=== PATIENT | male | born 1940 | race Caucasian/White ===

== ENCOUNTER 2019-04-15 13:06 | Inpatient (IN) | payer MEDICARE, SELFPAY ==
--- NOTE | ~2019-04-15 | US_ITS ---
EXAMINATION: US right upper quadrant EXAM DATE: 04/15/2019 14:46 INDICATION: Epigastric abdominal pain. TECHNIQUE: Multiple grayscale and Doppler images of the abdomen right upper quadrant were obtained (b y a technologist who performed the scan) and subsequently reviewed. Comparison is made to prior exami nation from 01/15/2017. FINDINGS: The pancreatic head and body are normal in appearance. The pancreatic tail is not visualized. The l iver has normal echogenicity and contour. There are no focal liver lesions identified. There is no evidence of intrahepatic biliary duct dilation. Portal venous flow was seen in the hepatopedal, nor mal direction and has normal Doppler waveform. No right-sided hydronephrosis. Common bile duct measures 5-6 mm, which is normal. The gallbladder wall is normal in thickness, with expected amount of distention. No sonographic evidence of pericholecystic fluid. A few small gallst ones are present, some gallbladder sludge. Technologist reports patient didn't demonstrate sonograph ic Gomez's sign. IMPRESSION: Cholelithiasis, sonographic Gomez's sign demonstrated but no pericholecystic fluid, gall bladder wall thickening or biliary duct dilation. Reviewed, dictated and finalized at location B. MIGRATION CONSULTANT IMPRESSION: Cholelithiasis, sonographic Gomez's sign demonstrated but no peric holecystic fluid, gallbladder wall thickening or biliary duct dilation.
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
--- NOTE | ~2019-04-15 | XR_ITS ---
XR abdomen NG/feed tube insert INDICATION: Evaluate NG tube position. TECHNIQUE: Limited KUB perform for evaluating NG tube . COMPARISON: 12/03/2016 FINDINGS: NG tube tip in the stomach. Visualized bowel gas pattern is unremarkable.There is bibasila r atelectasis. There is a compression fracture of T12, likely chronic. There is scoliosis. IMPRESSION: 1: NG tube tip in the stomach. Reviewed, dictated and finalized at location A. [employer] PROCESSING
[2019-04-15 13:15] VITALS: BP 121/69; PULSE 62; RESP 24; TEMP 36.4; O2SAT 98
--- NOTE | 2019-04-15 13:20 | ECG_ITS ---
Measurements Intervals [place] Rate: 65 P: 34 NM: 198 QRS: -14 QRSD: 93 T: 29 QT: 414 QTc: 433 Interpretive Statements SINUS RHYTHM BORDERLINE T WAVE ABNORMALITY- INFERIOR LEADS BORDERLINE ECG Electronically Signed On 04-15-2019 16:24:05 [employer] by Geovani Tipton D.O.
[2019-04-15 13:31] LABS: Glucose Point of Care 107 (65-105)
--- NOTE | 2019-04-15 13:40 | ED.ABDPAIN ---
HPI - Abdominal Pain General Chief Complaint: Abdominal Pain Stated Complaint: abd pain Time Seen by Provider: 04/15/19 13:25 Source: patient and RN notes reviewed Mode of arrival: EMS Limitations: no limitations History of Present Illness HPI narrative: Pt is a 78 y/o male who presents to the ED via EMS with c/o epigastric pain starting roughly 1.5 hours ago. He notes that he has a Hx of a feeding tube secondary to a traumatic injury. Pt states that he was eating a banana this afternoon when he developed pain in his upper ABD. He notes that his pain has alleviated significantly since it first began, and currently rates his pain at 2-3/10. Pt reports diaphoresis accompanying his pain, but denies any nausea, vomiting, SOB, CP, or back pain. He notes that he was evaluated in the [place] ED on 04/07/19 for weakness, and states that he was diagnosed with possible pneumonia. Pt notes that he has since followed up with his PCP, Dr. Membreno, and states that he was started on 2 L of home O2 yesterday as needed. MD elicited complaint: abdominal pain Onset (ago): hour(s) (1.5) Location: epigastric Pain scale (0-10): 2 Associated symptoms: other (diaphoresis) Related Data Home Medications Medication Instructions Recorded Confirmed albuterol sulfate 90 mcg/actuation 1 inhalation INHALATION Q4H 01/25/19 aerosol inhaler cetirizine 10 mg capsule PO 01/25/19 cholecalciferol (vitamin D3) 25 1,000 unit PO DAILY 01/25/19 mcg (1,000 unit) capsule montelukast 10 mg tablet 10 mg PO DAILY 01/25/19 Allergies Allergy/AdvReac Type Severity Reaction Status Date / Time fentanyl AdvReac Unknown Loss of Verified 04/11/19 14:37 Consciousness hydrocodone AdvReac Unknown Loss of Verified 04/11/19 14:37 Consciousness oxycodone AdvReac Unknown Loss of Verified 04/11/19 14:37 Consciousness SILKSUTURES Allergy Severe REDNESS Uncoded 04/11/19 14:37 Review of Systems Review of Systems: All systems reviewed & are unremarkable except as noted in HPI and below Cardiovascular: Cardiovascular: Denies chest pain and Reports diaphoresis Respiratory: Respiratory: Denies dyspnea Gastrointestinal: Gastrointestinal: Reports abdominal pain (epigastric pain), Denies nausea and Denies vomiting Musculoskeletal: Musculoskeletal: Denies back pain [facility] Past Medical History Medical History Acute diastolic heart failure AK (actinic keratosis) 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 Cataracts, bilateral CHF (congestive heart failure) Cholecystitis Chronic bilateral low back pain without sciatica Chronic diastolic (congestive) heart failure Chronic kidney disease, stage 3 (moderate) Chronic leukemia of unspecified cell type not having achieved remission CLL (chronic lymphocytic leukemia) Closed fracture of one rib of right side Closed fracture of trochanter of right femur Combined arterial insufficiency and corporo-venous occlusive erectile dysfunction CVA (cerebral vascular accident) Diastolic dysfunction Dietary counseling and surveillance (06/02/16) Dizziness Dysfunction of right rotator cuff Encounter for other specified surgical aftercare Esophageal dysphagia Essential (primary) hypertension External hemorrhoids Gastroesophageal reflux disease Granuloma of subcutaneous tissue H/O: HTN (hypertension) History of angina History of GI bleed History of inguinal hernia ADOLFO. 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
[2019-04-15 14:16] LABS: Basophils Absolute Auto 0.1 K/mm3 (0.0-0.1); Basophils Percent Auto 0.1 % (0.2-1.2); Eosinophils Absolute Auto 0.1 K/mm3 (0-0.3); Eosinophils Percent Auto 0.1 % (0-4.4); Hematocrit 35.5 % (42.0-52.0); Hemoglobin 10.9 g/dL (14.0-18.0); Immature Granulocyte Absolute 0.13 K/mm3 (0.00-0.031); Immature Granulocyte Percent A 0.3 % (0-0.5); Lymphocytes Absolute Auto 43.19 K/mm3 (0.9-3.2); Lymphocytes Percent Auto 87.7 % (18.3-44.2); Mean Corpuscular HGB Conc 30.7 g/dl (32-36); Mean Corpuscular Hemoglobin 29.2 pg (26-34); Mean Corpuscular Volume 95.2 fl (80-100); Mean Platelet Volume 8.7 fl (7.4-10.4); Monocytes Absolute Auto 0.4 K/mm3 (0.1-0.6); Monocytes Percent Auto 0.8 % (2.6-8.5); Neutrophils Absolute Auto 5.4 K/mm3 (1.3-6.7); Platelet Count Result 248 k/mm3 (150-375); Red Blood Count 3.73 M/mm3 (4.6-6.20); Red Cell Distribution Width 14.6 % (11.5-14.5); White Blood Count 49.2 K/mm3 (4.5-10.0)
[2019-04-15 14:21] LABS: Add Urine Microscopic? YES; Appearance Urine Clear (Clear); Bacteria Urine Trace /hpf; Bilirubin Urine Negative (Negative); Blood Urine Negative (Negative); Color Urine Yellow (Yellow); Glucose Urine UA 1+ mg/dL (Negative); Ketones Urine Trace mg/dL (Negative); Leukocyte Esterase Ur Negative LEU/UL (Negative); Mucus Urine Rare /lpf; Nitrate Urine Negative (Negative); Protein Urine 1+ mg/dL (Negative); RBC Urine 0-2 /hpf (0-2); Specific Grav Ur 1.027 (1.001-1.035); Squamous Epithelial Cell Urine Rare /hpf (Few); Urobilinogen Urine Negative mg/dL (<2.0); WBC Urine 0-3 /hpf
[2019-04-15 14:31] LABS: Platelet Estimate Adequate (Adequate)
[2019-04-15 14:32] LABS: Alanine Aminotransferase 88 U/L (4-50); Albumin Level 3.3 g/dL (3.5-5.1); Alkaline Phosphatase 180 U/L (38-126); Aspartate Amino Transferase 65 U/L (17-59); Atypical Lymphocytes Present; Bilirubin,Total 0.6 mg/dL (0.2-1.3); Blood Urea Nitrogen 44 mg/dL (9-20); Calcium 8.9 mg/dL (8.4-10.2); Carbon Dioxide 29 mmol/L (22-30); Chloride 94 mmol/L (98-107); Estimated CRCL calculation 42 ml/min; Estimated Glomerular Filt Rate > 60; Glucose 178 mg/dL (75-110); Potassium 4.7 mmol/L (3.4-5.0); Sodium 132 mmol/L (137-145)
[2019-04-15 14:39] LABS: Troponin I < 0.012 ng/mL (0.000-0.034)
[2019-04-15 15:28] LABS: Lipase 7726 U/L (23-300)
[2019-04-15 16:37] VITALS: BP 123/78; PULSE 76; RESP 16; O2SAT 99
[2019-04-15 18:05] VITALS: BP 121/82; PULSE 82; RESP 20; O2SAT 100
--- NOTE | 2019-04-15 18:24 | ADMGEN ---
This patient, Jordon Guillermo, was admitted to Medical Room 343-01. Patient/family oriented to hospital policies and general routines including ID bracelet, bed and alarms, visiting hours, pain management, procedures, bathroom and other care routines, personal items, smoking policy, room service/diet, and visiting hours. Valuables list has been completed. Information on how to activate the Rapid Response Team has been discussed. Patient/Family are encouraged to report perceived risks to care and to ask questions if they do not understand what they are told or what they should do.
[2019-04-15] MEDS: LACTATED RINGERS 1,000 ML 125 ML IV CONT (18:26)
[2019-04-15 18:29] VITALS: BMI 25.3
[2019-04-15 18:49] VITALS: BP 114/67; PULSE 76; RESP 20; TEMP 37; O2SAT 96
[2019-04-15 18:54] VITALS: BMI 24.4
[2019-04-15] MEDS: KETOROLAC 30 MG/ML VIAL (*BKC) IV PUSH (20:49)
[2019-04-15 21:19] VITALS: BP 130/65; PULSE 78; RESP 16; TEMP 36.6; O2SAT 98
[2019-04-16] VITALS (10 sets, daily range): BP systolic 91–138; BP diastolic 54–88; PULSE 78–96; RESP 18–22; TEMP 36.6–37.1; O2SAT 96–100
[2019-04-16] MEDS: LACTATED RINGERS 1,000 ML 125 ML IV CONT ×2 (02:36→11:51)
[2019-04-16] MEDS: KETOROLAC 30 MG/ML VIAL (*BKC) IV PUSH (04:15)
[2019-04-16 06:06] LABS: Basophils Absolute Auto 0.1 K/mm3 (0.0-0.1); Basophils Percent Auto 0.2 % (0.2-1.2); Eosinophils Absolute Auto 0.1 K/mm3 (0-0.3); Eosinophils Percent Auto 0.2 % (0-4.4); Hematocrit 25.3 % (42.0-52.0); Hemoglobin 7.8 g/dL (14.0-18.0); Immature Granulocyte Absolute 0.06 K/mm3 (0.00-0.031); Immature Granulocyte Percent A 0.2 % (0-0.5); Lymphocytes Percent Auto 89.4 % (18.3-44.2); Mean Corpuscular HGB Conc 30.8 g/dl (32-36); Mean Corpuscular Hemoglobin 29.3 pg (26-34); Mean Corpuscular Volume 95.1 fl (80-100); Mean Platelet Volume 8.5 fl (7.4-10.4); Monocytes Absolute Auto 0.4 K/mm3 (0.1-0.6); Monocytes Percent Auto 1.2 % (2.6-8.5); Neutrophils Absolute Auto 2.8 K/mm3 (1.3-6.7); Neutrophils Percent Auto 8.8 % (45.5-73.1); Platelet Count Result 178 k/mm3 (150-375); Red Blood Count 2.66 M/mm3 (4.6-6.20); Red Cell Distribution Width 14.6 % (11.5-14.5)
[2019-04-16 06:23] LABS: Alanine Aminotransferase 59 U/L (4-50); Albumin Level 2.6 g/dL (3.5-5.1); Alkaline Phosphatase 116 U/L (38-126); Aspartate Amino Transferase 32 U/L (17-59); Bilirubin,Total 0.4 mg/dL (0.2-1.3); Blood Urea Nitrogen 49 mg/dL (9-20); Calcium 8.3 mg/dL (8.4-10.2); Carbon Dioxide 27 mmol/L (22-30); Chloride 100 mmol/L (98-107); Estimated CRCL calculation 41 ml/min; Estimated Glomerular Filt Rate > 60; Glucose 97 mg/dL (75-110); Lipase 411 U/L (23-300); Potassium 4.8 mmol/L (3.4-5.0); Sodium 133 mmol/L (137-145)
--- NOTE | 2019-04-16 09:14 | PM.IMHP ---
H&P: HPI History of Present Illness Chief complaint: pancreatitis/cholelithiasis Narrative: Date and Time of Service of History & Physical: April 16, 2019 at 8:30 a.m.. Date and Time of Admission Order: April 15, 2019 at 5:18 p.m. Chief Complaint: Epigastric pain. History of Present Illness: Jordon Guillermo is a 78 year old male with multiple medical problems previous history of bleeding ulcer 40 years ago, chronic back and shoulder pain, chronic diastolic heart failure, chronic kidney disease stage 3, CLL and hypertension who presented to the emergency room yesterday with acute onset of epigastric pain starting approximately 11:30 a.m.. Patient reports he had eaten a banana just prior to the pain. Pain lasted 1-1/2 hours. He does report noticing a dark stool yesterday morning. He did of note have dark stool with blood in noted overnight on the medical floor. Patient was having problems with decreased appetite and oral intake along with generalized weakness and shortness of breath with in the past 2 weeks. After 1 week of symptoms, he was seen in the emergency room on 04/07/2019. At that time was thought to possibly have pneumonia but was not started on treatment. He did follow-up with his primary physician, Dr. Membreno, on 04/11/2019 at which time he was started on antibiotics as well as oxygen for pneumonia and hypoxia. Patient reports he was able to wean off the oxygen 2 days ago. No further shortness of breath. Occasional cough. No fever but he did have chills 1 week ago. He only takes acetaminophen with known chronic pain issues from an injury many years ago. He does currently have slight headache but no dizziness. No chest pain. No nausea or vomiting. No urinary symptoms. In the emergency room, evaluation was concerning for pancreatitis with cholecystitis. General surgery was consulted from the emergency room with patient admitted for further evaluation and treatment. Review of Systems Review of Systems: All systems reviewed & are unremarkable except as noted in HPI and below Constitutional: Constitutional: Denies chills and Denies fever(s) ENT: Denies epistaxis, Denies nasal congestion, Denies nasal discharge and Denies sore throat Cardiovascular: Cardiovascular: Denies chest pain, Denies leg edema, Denies lightheadedness and Denies palpitations Respiratory: Respiratory: Denies cough, Denies dyspnea and Denies dyspnea on exertion Gastrointestinal: Gastrointestinal: Reports abdominal pain (epigastric), Reports hematochezia, Denies constipation, Denies diarrhea, Denies nausea, Denies vomiting and Denies hematemesis Genitourinary: Genitourinary: Denies hematuria, Denies dysuria and Denies urinary frequency Musculoskeletal: Musculoskeletal: Reports back pain (chronic back) and Reports arthralgias (chronic shoulder) Integumentary/Breasts: Skin/Breast: Reports system reviewed and no additional complaints, except as docu Neurologic: Denies Abnormal speech present, Denies abnormal gait, Reports headache(s) and Denies numbness Psychiatric: Psychiatric: Denies anxiety, Denies confusion and Denies depression Endocrine: Endocrine: Reports no additional endocrine complaints Hematologic/Lymphatic: Hematologic/Lymphatic: Reports other (known CLL) Allergic/Immunologic: Allergic/Immunologic: Reports no additional allergic/immunologic complaints PMFSH Past Medical History Medical History AK (actinic keratosis) 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 Cataracts, bilateral Cholecystitis Chronic bilateral low back pain without sciatica Chronic diastolic (congestive) heart failure Chronic kidney disease, stage 3 (moderate) Chronic leukemia of unspecified cell type not having achieved remission CLL (chronic lymphocytic leukemia) Closed fracture of one rib of right side Closed fracture of trochanter of right femur Combined arterial insufficienc
--- NOTE | 2019-04-16 09:21 | WPDGICN ---
Assessment and Plan Additional Plan This is a 78-year-old white male patient I am asked to see because of blood in stool. Patient is followed by Dr. Amadeo Membreno In the office setting. Patient reports mild midepigastric discomfort over the last several days. For this reason he presented to the emergency room yesterday. Laboratory testing revealed elevation of LFTs. Elevated lipase was noted. ultrasound confirmed gallstones. He was admitted for treatment of pancreatitis secondary to gallstones. This morning he was noted to pass black melenic stools. Decline in his hemoglobin was identified. Patient continues to notice mild midepigastric discomfort. Past medical history is significant for CLL. He has a history of traumatic injury requiring a PEG tube in the past now removed. He has a distant history of bleeding peptic ulcer. He has a history of esophagitis and distal esophageal stricture ring requiring dilatation in 2018. Family history is noncontributory. Current medications include albuterol. Losartan. Omeprazole 20 mg p.o. daily. He has Allergies to fentanyl and hydrocortisone. Physical exam reveals Vital Signs to be stable blood pressure normal. HEENT exam unremarkable he is anicteric. Lungs are clear to auscultation and percussion. Heart is without murmur or extra sounds. Abdomen bowel sounds are present soft with mild midepigastric tenderness. No masses are listed. Stool was confirmed to be Hemoccult positive. Laboratory testing reveals WBC 31. Hemoglobin 7.8 hematocrit 25.3. Yesterday hemoglobin was 10.9. Total bilirubin 0.4. AST 32. ALT 59. Alk phos 116. Yesterday lipase 7700. Today is 411. impression 1. GI bleeding. Appears to be upper GI blood loss manifested by melena. Decline in hemoglobin noted as well. Current vital signs appear stable. No active bleeding felt per at the present time. Plan is to increase dose of proton pump inhibitor. An EGD will be planned in the morning. patient has a distant history of peptic ulcer. He also has a history of esophagitis and esophageal stricture ring. 2. Pancreatitis. Clinically improving. Appears to be related to gallstones. 3. Gallstones. Appear to have been etiology for pancreatitis. Surgery has been consulted for possible cholecystectomy. 4. CLL. This is chronic and appear stable. WBC remains elevated. Plan is to increase dose of proton pump inhibitor. Continue to monitor hemoglobin. Plan for EGD to assess upper GI bleeding source. 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 dysfunction CVA (cerebral vascular accident) Dizziness Dysfunction of right rotator cuff Esophageal dysphagia Essential (primary) hypertension External hemorrhoids Gastroesophageal reflux disease Granuloma of subcutaneous tissue History of angina History of GI bleed History of SCC (squamous cell carcinoma) of skin Hx of migraines 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e) Incisional hernia, without obstruction or gangrene Injury of back due to fall Injury of chest wall Internal hemorrhoids with other complication Irregular heart beat Irritation of both e
[2019-04-16] MEDS: PANTOPRAZOLE SODIUM IV 40 MG VIAL IV PUSH ×2 (09:57→23:13)
[2019-04-16 11:39] LABS: Hemoglobin 7.3 g/dL (14.0-18.0)
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
[2019-04-16] MEDS: ALBUTEROL SULFATE (*SP) AEROSOL 1 PUFF INHALATION (12:54)
[2019-04-16 17:18] LABS: Hematocrit 21.9 % (42.0-52.0)
[2019-04-16 17:35] LABS: Hemoglobin 6.7 g/dL (14.0-18.0)
[2019-04-16] MEDS: TUBING, BLOOD PLUM PUMP TUBING 1 EACH XX (23:14)
[2019-04-16] MEDS: SODIUM CHLORIDE 0.9% IV 250 ML 30 ML IV CONT (23:14)
[2019-04-17] VITALS (24 sets, daily range): BP systolic 72–113; BP diastolic 50–82; PULSE 69–100; RESP 14–32; TEMP 36.3–37.2; O2SAT 95–100
[2019-04-17] MEDS: LACTATED RINGERS 1,000 ML 125 ML IV CONT ×3 (02:32→21:36)
[2019-04-17 03:00] LABS: Hematocrit 23.6 % (42.0-52.0); Hemoglobin 7.2 g/dL (14.0-18.0)
--- NOTE | 2019-04-17 03:07 | PC.NURSE ---
Addendum entered by Misha Lopez CNA 04/17/19 03:11: instead of bloody stools are maroon in color and thick consistency. Original Note: x2 large dark bloody stools. x2 small dark bloody stool.
--- NOTE | 2019-04-17 03:34 | PC.NURSE ---
medium, thick, dark maroon
[2019-04-17 06:02] LABS: Hematocrit 21.5 % (42.0-52.0)
[2019-04-17 06:07] LABS: Hemoglobin 6.7 g/dL (14.0-18.0)
[2019-04-17 06:09] LABS: Alanine Aminotransferase 32 U/L (4-50); Alkaline Phosphatase 66 U/L (38-126); Aspartate Amino Transferase 31 U/L (17-59); Bilirubin,Total 0.4 mg/dL (0.2-1.3); Blood Urea Nitrogen 67 mg/dL (9-20); Calcium 7.6 mg/dL (8.4-10.2); Carbon Dioxide 23 mmol/L (22-30); Chloride 107 mmol/L (98-107); Estimated CRCL calculation 41 ml/min; Estimated Glomerular Filt Rate > 60; Glucose 111 mg/dL (75-110); Lipase 41 U/L (23-300); Magnesium 1.9 mg/dL (1.6-2.3); Potassium 4.9 mmol/L (3.4-5.0); Sodium 136 mmol/L (137-145)
--- NOTE | 2019-04-17 06:38 | PC.NURSE ---
BM: large, thick, dark maroon
[2019-04-17 06:44] LABS: Hematocrit 21.8 % (42.0-52.0); Mean Corpuscular HGB Conc 30.7 g/dl (32-36); Mean Corpuscular Hemoglobin 29.3 pg (26-34); Mean Corpuscular Volume 95.2 fl (80-100); Mean Platelet Volume 9.3 fl (7.4-10.4); Platelet Count Result 211 k/mm3 (150-375); Red Blood Count 2.29 M/mm3 (4.6-6.20)
[2019-04-17 06:59] LABS: Hemoglobin 6.7 g/dL (14.0-18.0)
--- NOTE | 2019-04-17 07:23 | WPDANESEPP ---
Anes - Eval Pre Procedure Procedure: EGD Date/Time: 04/17/19 07:23 Surgeon: Wendie Sandoval M.D. Pre Op Diagnosis: pancreatitis/cholelithiasis Patient Data Age: 78 Gender: M Height: 1.63 m Weight: 64.5 kg Last Vital Signs Temp 36.9 C 04/17/19 04:37 Pulse 90 04/17/19 04:37 Resp 16 04/17/19 04:37 BP 111/64 04/17/19 04:37 Pulse Ox 100 04/17/19 04:37 Allergies Allergy/AdvReac Type Severity Reaction Status Date / Time fentanyl AdvReac Unknown Loss of Verified 04/15/19 18:21 Consciousness hydrocodone AdvReac Unknown Loss of Verified 04/15/19 18:21 Consciousness oxycodone AdvReac Unknown Loss of Verified 04/15/19 18:21 Consciousness SILKSUTURES Allergy Severe REDNESS Uncoded 04/11/19 14:37 Home Medications Medication Instructions Recorded Confirmed Type albuterol sulfate 90 mcg/actuation 1 inhalation INHALATION Q4H 01/25/19 04/15/19 History aerosol inhaler omeprazole 20 mg tablet,delayed 20 mg PO DAILY #30 tablet 02/07/19 04/15/19 Rx release nebivolol 5 mg tablet 2.5 mg PO DAILY #30 tablet 04/11/19 04/15/19 Rx losartan 50 mg PO DAILY 04/15/19 04/15/19 History Laboratory Tests 04/16/19 04/16/19 04/16/19 11:05 17:09 17:52 WBC RBC Hgb 7.3 g/dL L g/dL 6.7 g/dL L* g/dL (14.0-18.0) (14.0-18.0) Hct 24.0 % L % 21.9 % L % (42.0-52.0) (42.0-52.0) MCV MCH MCHC RDW Plt Count MPV Sodium Potassium Chloride Carbon Dioxide BUN Creatinine Estim Creat Clear Calc Estimated GFR Glucose Calcium Magnesium Total Bilirubin AST ALT Alkaline Phosphatase Total Protein Albumin Lipase Blood Type O Positive Antibody Screen Negative Crossmatch See Detail 04/17/19 04/17/19 04/17/19 02:48 05:29 05:29 WBC 50.0 K/mm3 H K/mm3 (4.5-10.0) RBC 2.29 M/mm3 L M/mm3 (4.6-6.20) Hgb 7.2 g/dL L g/dL 6.7 g/dL L* g/dL (14.0-18.0) (14.0-18.0) Hct 23.6 % L % 21.8 % L % (42.0-52.0) (42.0-52.0) MCV 95.2 fl fl (80-100) MCH 29.3 pg pg (26-34) MCHC 30.7 g/dl L g/dl (32-36) RDW 16.0 % H % (11.5-14.5) Plt Count 211 k/mm3 k/mm3 (150-375) MPV 9.3 fl fl (7.4-10.4) Sodium 136 mmol/L L mmol/L (137-145) Potassium 4.9 mmol/L mmol/L (3.4-5.0) Chloride 107 mmol/L mmol/L (98-107) Carbon Dioxide 23 mmol/L mmol/L (22-30) BUN 67 mg/dL H D mg/dL (9-20) Creatinine 1.10 mg/dL mg/dL (0.7-1.3) Estim Creat Clear Calc 41 ml/min ml/min Estimated GFR > 60 (59 - ) Glucose 111 mg/dL H mg/dL (75-110) Calcium 7.6 mg/dL L mg/dL (8.4-10.2) Magnesium 1.9 mg/dL mg/dL (1.6-2.3) Total Bilirubin 0.4 mg/dL mg/dL (0.2-1.3) AST 31 U/L U/L (17-59) ALT 32 U/L U/L (4-50) Alkaline Phosphatase 66 U/L U/L (38-126) Total Protein 4.0 g/dL L g/dL (6.3-8.2) Albumin 2.0 g/dL L g/dL (3.5-5.1) Lipase 41 U/L U/L (23-300) Blood Type Antibody Screen Crossmatch 04/17/19 05:29 WBC RBC Hgb 6.7 g/dL L* g/dL (14.0-18.0) Hct 21.5 % L % (42.0-52.0) MCV MCH MCHC RDW Plt Count MPV Sodium Potassium Chloride Carbon Dioxide BUN Creatinine Estim Creat Clear Calc Estimated GFR Glucose Calcium Magnesium Total Bilirubin AST ALT Alkaline Phosphatase Total Protein Albumin
[2019-04-17] MEDS: PANTOPRAZOLE SODIUM IV 40 MG VIAL IV PUSH ×2 (08:28→20:51)
[2019-04-17] MEDS: SODIUM CHLORIDE 0.9% IV 250 ML 30 ML IV CONT ×2 (08:36→22:43)
--- NOTE | 2019-04-17 09:53 | PM.IMPN ---
Progress Note: A&P Assessment and Plan (1) Anemia: Onset Date: Unknown Qualifiers: Anemia type: other cause Other causes of anemia: acute posthemorrhagic Qualified Code(s): D62 - Acute posthemorrhagic anemia Code(s): D64.9 - Anemia, unspecified Status: Acute Assessment and Plan: Appears to be from GI bleed at this time. Hemoglobin decreased to 6.7 last night with 2 units PRBC transfused. Did slightly increase to 7.2 but still at 6.7 again this morning. Receiving 1 more unit of PRBC. BP decreased 88/[address] Sandoval was consulted and did see the patient yesterday with plan for EGD today. Dr. Sandoval aware of current situation. IV fluids being given in addition to transfusion but will need to be cautious with known history of CHF. Remains on IV Protonix. Remains NPO. Now has NG tube placed per direction of Dr. Sandoval this morning. Discussed with Dr. Sandoval as well as with editorial assistant. Will transfer to ICU for closer monitoring. Total time spent in critical care is 35 minutes. (2) GI bleed: Onset Date: ~04/16/19 Qualifiers: GI bleed type/associated pathology: melena Qualified Code(s): K92.1 - Melena Code(s): K92.2 - Gastrointestinal hemorrhage, unspecified Status: Acute Assessment and Plan: Decrease in hemoglobin as noted above. Previous history of ulcer. Has not been on any anti-inflammatories recently. Continue IV Protonix q.12 hours. Continue transfusion. Continue to monitor H&H. Plan for EGD. Adjust treatment as needed. (3) Hypotension: Qualifiers: Hypotension type: hypotension due to hypovolemia Qualified Code(s): I95.89 - Other hypotension; E86.1 - Hypovolemia Code(s): I95.9 - Hypotension, unspecified Status: Acute Assessment and Plan: Result blood volume loss. Receiving PRBC. Also to receive IV fluids. Continue to monitor. (4) Essential (primary) hypertension: Code(s): I10 - Essential (primary) hypertension Status: Acute Assessment and Plan: Blood pressure reviewed on 04/17/2019 and now lower as noted above. Continue to hold home losartan and Bystolic. Continue to monitor. (5) Chronic diastolic (congestive) heart failure: Code(s): I50.32 - Chronic diastolic (congestive) heart failure Status: Acute Assessment and Plan: No present exacerbation. Home losartan and Bystolic on hold. Will need to monitor for volume overload with transfusions and IV fluids. Echocardiogram from November 2018 with EF 60-65% and diastolic dysfunction grade 1. (6) Acute pancreatitis: Onset Date: ~03/2019 Qualifiers: Acute pancreatitis complication: no infection or necrosis Pancreatitis type: biliary Qualified Code(s): K85.10 - Biliary acute pancreatitis without necrosis or infection Code(s): K85.90 - Acute pancreatitis without necrosis or infection, unspecified Status: Acute Assessment and Plan: Initial workup in the emergency room consistent with pancreatitis with elevated lipase. Lipase has already improved to 411 today. LFTs already normalizing. CT scan and RUQ ultrasound with concern for gallbladder issues. General surgery consulted from the emergency room and appreciate input. Lipase is normal today. Suspect abdominal issues more likely from GI bleed. Continue to monitor. Treatment as noted above. (7) Cholelithiasis: Onset Date: Unknown Qualifiers: Biliary obstruction: without biliary obstruction Cholelithiasis location: other site Qualified Code(s): K80.80 - Other cholelithiasis without obstruction Code(s): K80.20 - Calculus of gallbladder without cholecystitis without obstruction Status: Acute Assessment and Plan: As seen on CT and RUQ ultrasound. Appreciate input from General surgery. Do not anticipate surgery at the present time. Continue treatment of GI issues as noted above. (8) CLL (c
--- NOTE | 2019-04-17 11:44 | WPDANESEFPP ---
Anes - Eval Final PreProcedure Day of Procedure 04/17/19 11:44 Patient weight: normal Heart: tachycardia Lungs: clear to auscultation Airway: Mallampati scale class II Neurological: other (alert) Last oral intake: >/= 8 hours ASA classification: IV Emergent: yes Anesthetic plan: proceed Anesthesia type and monitoring: general GIVS and standard monitoring Other findings: exam per [facility] will do in ICU etomidate/propofol Informed Consent: The patient's anesthetic plan and its attendant risks and benefits were discussed with the patient/family/POA. Questions were solicited and answers provided to the satisfaction of the patient/family/POA.
--- NOTE | 2019-04-17 11:51 | WPDCNINT ---
Assessment and Plan Assessment and plan (1) Anemia: Onset Date: Unknown Qualifiers: Anemia type: other cause Other causes of anemia: acute posthemorrhagic Qualified Code(s): D62 - Acute posthemorrhagic anemia Code(s): D64.9 - Anemia, unspecified Status: Acute Assessment and Plan: acute anemia most likely related to GI bleed. Has a history of ulcer, - appreciate GI evaluation and recommendation - patient to get endoscopy today on 04/17/2019 - continue PPI q.12 hours - transfused 3 units of packed RBCs, will monitor H&H post transfusion (2) GI bleed: Onset Date: ~04/16/19 Qualifiers: GI bleed type/associated pathology: melena Qualified Code(s): K92.1 - Melena Code(s): K92.2 - Gastrointestinal hemorrhage, unspecified Status: Acute Assessment and Plan: GI bleed patient initially had melena but overnight started to have some red blood per rectum. - EGD to be done today per GI (3) Hypotension: Qualifiers: Hypotension type: hypotension due to hypovolemia Qualified Code(s): I95.89 - Other hypotension; E86.1 - Hypovolemia Code(s): I95.9 - Hypotension, unspecified Status: Acute Assessment and Plan: patient hypotensive likely related to acute gastroenteritis hemorrhage. Patient transfuse 3 units of packed RBCs, so given 250 mL IV fluid bolus per GI improvement in blood pressures. - Patient transfer the ICU for close monitoring (4) Acute pancreatitis: Onset Date: ~03/2019 Qualifiers: Acute pancreatitis complication: no infection or necrosis Pancreatitis type: biliary Qualified Code(s): K85.10 - Biliary acute pancreatitis without necrosis or infection Code(s): K85.90 - Acute pancreatitis without necrosis or infection, unspecified Status: Acute Assessment and Plan: patient had significantly elevated lipase levels on admission, on 04/17/2019 a lipase levels have normalized - LFTs also normalizing, CT scan and right upper quadrant ultrasound show cholelithiasis without obstruction (5) CLL (chronic lymphocytic leukemia): Onset Date: Unknown Code(s): C91.10 - Chronic lymphocytic leukemia of B-cell type not having achieved remission Status: Acute Assessment and Plan: patient with known CLL of B-cell type - WBC elevated to 50,000, likely Leukomoid reaction secondary to GI bleed, continue fall (6) Essential (primary) hypertension: Code(s): I10 - Essential (primary) hypertension Status: Acute Assessment and Plan: will hold all anti hypertensives at this time (7) Cholelithiasis: Onset Date: Unknown Qualifiers: Biliary obstruction: without biliary obstruction Cholelithiasis location: other site Qualified Code(s): K80.80 - Other cholelithiasis without obstruction Code(s): K80.20 - Calculus of gallbladder without cholecystitis without obstruction Status: Acute Assessment and Plan: - right upper quadrant ultrasound showed cholelithiasis with no pericholecystic fluid, gallbladder wall thickening or biliary duct dilatation - CT scan of the abdominal pelvis showed stable moderate splenomegaly, cholelithiasis, gallbladder wall thickening may be secondary to chronic liver disease, interstitial edema or chronic cholecystitis - surgery following the patient, no acute intervention at this time (8) DVT prophylaxis: Code(s): Z29.9 - Encounter for prophylactic measures, unspecified Status: Acute Assessment and Plan: SCDs Additional Plan discussed with patient and his son and updated them with patient's condition and plan of care. They aware of the EGD to be done today, I also discussed with the patient and son that if his blood pressures dropped too low, he will require a central line to which both of them agreeable. Code status: Full code Critical care time spent: 42 minutes Du
[2019-04-17] MEDS: SODIUM CHLORIDE 0.9% IV 500 ML 150 ML (12:47)
--- NOTE | 2019-04-17 13:51 | PM.OP ---
Procedure Note - Brief Procedure Note - Brief Date of procedure: 04/17/19 Pre-op diagnosis: pancreatitis/cholelithiasis Surgeon: Jonnie Sandoval MD EGD with cautery is performed on 04/17/2019. Informed consent is obtained from the patient. The risks benefits alternatives indications are discussed thoroughly with the patient prior to starting the procedure. The risks include but are not limited to adverse reaction medications including allergies to risk of bleeding and possible need for transfusion the risk of perforation and possible need for surgery and the risk for missed pathology patient voiced clear understanding agreed to proceed. Procedure is EGD with cautery and epinephrine injection. Preop diagnosis upper GI bleeding. Postop diagnosis same Description Procedure patient is sedated with anesthesia assistance. Instrument is the [employer] video endoscope. And the side-viewing duodenal scope. Fujinon endoscope is passed to the esophagus which appears normal squamocolumnar junction. Located at 40 cm from the incisors. Stomach his hands entirety including U-turn is normal Duodenum reveals a large amount of blood. Bright red blood is noted. After lavaged this appears to emanate from the superior portion of the duodenal sweep. In the 2nd portion of the duodenum 3cc of epinephrine injected intermittently. This area subsequently cauterized empirically. Cessation of bleeding ultimately is accomplished. Follow-up endoscopy with the side-viewing duodenal scope was subsequently performed. Area of small cautery lesion is identified just beyond the fold in the duodenal sweep. No additional bleeding noted at this time. Impression 1. Duodenal ulcer. Visible vessel noted in this area. 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 Plan is for continued close monitoring of his blood pressure and blood count. Plan to transfuse to a stable hemoglobin. High-dose proton pump inhibitor with Carafate supplementation is advised. This is discussed with Dr. Keys on surgery. Also discussed with Dr. french mildly manager of loss prevention operations.
--- NOTE | 2019-04-17 14:38 | PM.PNGS ---
Progress Note: A&P Assessment and Plan (1) GI bleed: Onset Date: ~04/16/19 Qualifiers: GI bleed type/associated pathology: melena Qualified Code(s): K92.1 - Melena Code(s): K92.2 - Gastrointestinal hemorrhage, unspecified Status: Acute Assessment and Plan: Appears to be from a site at the junction of the 1st and 2nd portion of the duodenum. See GI note Agree with high-dose Protonix plus Carafate has medical treatment. Have discussed with Dr. Sanodval and Dr. Andujar and will plan to transfuse patient to try to keep hemoglobin around 9.0 in view of his general medical condition debilitation and heart issues. We will be on standby should patient rebleed. However, since this appears to be a superficial area of bleeding probably repeat endoscopy with attempts at further therapeutic or mechanical techniques to stop the bleeding would be the 1st priority. Only if this fails would surgical intervention be needed. (2) Chronic diastolic (congestive) heart failure: Code(s): I50.32 - Chronic diastolic (congestive) heart failure Status: Acute (3) Anemia: Onset Date: Unknown Qualifiers: Anemia type: other cause Other causes of anemia: acute posthemorrhagic Qualified Code(s): D62 - Acute posthemorrhagic anemia Code(s): D64.9 - Anemia, unspecified Status: Acute Assessment and Plan: Transfusions to hemoglobin around 9.0 and serial H&H monitoring. (4) Cholelithiasis: Onset Date: Unknown Qualifiers: Biliary obstruction: without biliary obstruction Cholelithiasis location: other site Qualified Code(s): K80.80 - Other cholelithiasis without obstruction Code(s): K80.20 - Calculus of gallbladder without cholecystitis without obstruction Status: Acute Assessment and Plan: Since the patient had pancreatitis that resolved when he presented probably after he recovers from all of the current problems and is healthy as can be we may need to consider laparoscopic cholecystectomy to try to avoid further episodes of pancreatitis. Ultrasound shows that the patient has small stones in his gallbladder. (5) CLL (chronic lymphocytic leukemia): Onset Date: Unknown Code(s): C91.10 - Chronic lymphocytic leukemia of B-cell type not having achieved remission Status: Acute (6) Gastroesophageal reflux disease: Onset Date: Unknown Qualifiers: Esophagitis presence: without esophagitis Qualified Code(s): K21.9 - Gastro-esophageal reflux disease without esophagitis Code(s): K21.9 - Gastro-esophageal reflux disease without esophagitis Status: Acute (7) Acute pancreatitis: Onset Date: ~03/2019 Qualifiers: Acute pancreatitis complication: no infection or necrosis Pancreatitis type: biliary Qualified Code(s): K85.10 - Biliary acute pancreatitis without necrosis or infection Code(s): K85.90 - Acute pancreatitis without necrosis or infection, unspecified Status: Resolved Assessment and Plan: Lipase down to normal today. There was good normal appearing bile coming from the ampulla during endoscopy. This appears to have resolved at this time. Subjective Subjective Date/Time Seen: 04/17/19 14:38 Patient seen in ICU bed 6 during upper GI endoscopy. Nurses report patient not complain of significant abdominal pain today. Review of Systems Constitutional: Constitutional: Reports no additional constitutional complaints ENT: Reports other (Mucous Membranes moist.) Cardiovascular: Cardiovascular: Denies dyspnea Respiratory: Respiratory: Denies pain on inspiration and Denies dyspnea Gastrointestinal: Gastrointestinal: Reports melena Comments: Patient complaining of bloody diarrhea. Musculoskeletal: Musculoskeletal: Reports other (No calf swelling or edema) Integumentary/Breasts: Skin/Breast: Reports system reviewed and no additional compl
[2019-04-17 15:03] LABS: Hematocrit 22.7 % (42.0-52.0)
[2019-04-17 15:09] LABS: Hemoglobin 6.9 g/dL (14.0-18.0)
--- NOTE | 2019-04-17 15:19 | PC.NURSE ---
Patient was transferred from [facility] to ICU6 at 1044.
--- NOTE | 2019-04-17 18:01 | ADMGEN ---
This patient, Jordon Guillermo, was admitted to Intensive Care Unit-6. Patient/family oriented to hospital policies and general routines including ID bracelet, bed and alarms, visiting hours, pain management, procedures, bathroom and other care routines, personal items, smoking policy, room service/diet, and visiting hours. Valuables list has been completed. Information on how to activate the Rapid Response Team has been discussed. Patient/Family are encouraged to report perceived risks to care and to ask questions if they do not understand what they are told or what they should do.
[2019-04-17] MEDS: SUCRALFATE 1 GM TABLET PO ×2 (18:23→20:51)
[2019-04-17] MEDS: SODIUM CHLORIDE 0.9% IV 500 ML IV CONT (19:16)
[2019-04-17] MEDS: MUPIROCIN 2% OINT 22 GM TUBE 1 APPLIC EACH NARE (20:51)
[2019-04-17 21:21] LABS: Hematocrit 25.6 % (42.0-52.0); Hemoglobin 8.1 g/dL (14.0-18.0)
[2019-04-17] MEDS: ACETAMINOPHEN 325 MG TABLET 650 MG PO (22:41)
[2019-04-17] MEDS: TUBING, BLOOD PLUM PUMP TUBING 1 EACH XX (22:43)
[2019-04-18] VITALS (29 sets, daily range): BP systolic 90–136; BP diastolic 54–73; PULSE 73–100; RESP 12–32; TEMP 36.3–37.1; O2SAT 96–100
[2019-04-18 01:44] LABS: Hematocrit 25.7 % (42.0-52.0); Hemoglobin 8.1 g/dL (14.0-18.0)
[2019-04-18 05:37] LABS: Hematocrit 22.9 % (42.0-52.0); Hemoglobin 7.2 g/dL (14.0-18.0); Mean Corpuscular HGB Conc 31.4 g/dl (32-36); Mean Corpuscular Hemoglobin 29.3 pg (26-34); Mean Corpuscular Volume 93.1 fl (80-100); Platelet Count Result 194 k/mm3 (150-375); Red Blood Count 2.46 M/mm3 (4.6-6.20); Red Cell Distribution Width 18.5 % (11.5-14.5)
[2019-04-18 05:40] LABS: INR 1.4; Partial Thromboplastin Time 25.7 SECONDS (22.3-36.8); Prothrombin Time 17.2 Seconds (11.1-14.7)
[2019-04-18 05:46] LABS: Alanine Aminotransferase 22 U/L (4-50); Albumin Level 1.7 g/dL (3.5-5.1); Alkaline Phosphatase 46 U/L (38-126); Aspartate Amino Transferase 26 U/L (17-59); Bilirubin,Total 0.4 mg/dL (0.2-1.3); Blood Urea Nitrogen 55 mg/dL (9-20); Calcium 7.3 mg/dL (8.4-10.2); Carbon Dioxide 21 mmol/L (22-30); Chloride 108 mmol/L (98-107); Estimated CRCL calculation 49 ml/min; Estimated Glomerular Filt Rate > 60; Glucose 109 mg/dL (75-110); Lipase 43 U/L (23-300); Magnesium 1.8 mg/dL (1.6-2.3); Potassium 4.7 mmol/L (3.4-5.0); Sodium 134 mmol/L (137-145)
[2019-04-18 06:07] LABS: White Blood Count 57.4 K/mm3 (4.5-10.0)
[2019-04-18 06:14] LABS: Monocytes Absolute Manual 0.57 K/mm3 (0.1-0.90); Monocytes Percent Manual 1 % (3-9); Neutrophils Percent Manual 53 % (46-73); Platelet Estimate Adequate (Adequate); Total Cells Counted 100
[2019-04-18 06:15] LABS: Atypical Lymphocytes Present; Hypochromasia 2+ (NORMAL); Smudge Cells MANY
[2019-04-18] MEDS: LACTATED RINGERS 1,000 ML 125 ML IV CONT ×2 (06:33→16:37)
[2019-04-18] MEDS: SUCRALFATE 1 GM TABLET PO ×3 (06:33→19:40)
--- NOTE | 2019-04-18 07:44 | PM.PNGS ---
Progress Note: A&P Assessment and Plan (1) Hypotension: Qualifiers: Hypotension type: hypotension due to hypovolemia Qualified Code(s): I95.89 - Other hypotension; E86.1 - Hypovolemia Code(s): I95.9 - Hypotension, unspecified Status: Acute (2) GI bleed: Onset Date: ~04/16/19 Qualifiers: GI bleed type/associated pathology: melena Qualified Code(s): K92.1 - Melena Code(s): K92.2 - Gastrointestinal hemorrhage, unspecified Status: Acute Assessment and Plan: General surgery on standby. Agree with transfusion of both PRBCs and 1 unit of FFP Appreciate input of structural biologist and GI. I agree with possible repeat upper GI scope to recheck area of known bleeding in the 2nd portion of the duodenum. Hopefully a combination of his high-dose Protonix and Carafate plus interventional endoscopy will stop his bleeding. He knows that if it does not surgical intervention would involve open surgery to enter the duodenum and suture off the bleeder. (3) Anemia: Onset Date: Unknown Qualifiers: Anemia type: other cause Other causes of anemia: acute posthemorrhagic Qualified Code(s): D62 - Acute posthemorrhagic anemia Code(s): D64.9 - Anemia, unspecified Status: Acute Assessment and Plan: Transfusions in progress. (4) Cholelithiasis: Onset Date: Unknown Qualifiers: Biliary obstruction: without biliary obstruction Cholelithiasis location: other site Qualified Code(s): K80.80 - Other cholelithiasis without obstruction Code(s): K80.20 - Calculus of gallbladder without cholecystitis without obstruction Status: Acute (5) Gastroesophageal reflux disease: Onset Date: Unknown Qualifiers: Esophagitis presence: without esophagitis Qualified Code(s): K21.9 - Gastro-esophageal reflux disease without esophagitis Code(s): K21.9 - Gastro-esophageal reflux disease without esophagitis Status: Acute Subjective Subjective Date/Time Seen: 04/18/19 07:44 Patient reports: no new complaints and still having pain (Mid upper abdomen) Interval history: Patient states he is still having occasional bloody bowel movements. Admits to be being mildly depressed. Review of Systems Constitutional: Constitutional: Reports no additional constitutional complaints ENT: Reports other (Mucous Membranes moist.) Cardiovascular: Cardiovascular: Denies dyspnea Respiratory: Respiratory: Denies pain on inspiration and Denies dyspnea Musculoskeletal: Musculoskeletal: Reports other (No calf swelling or edema) Integumentary/Breasts: Skin/Breast: Reports system reviewed and no additional complaints, except as docu Exam Const: General: cooperative, no acute distress, alert and awake Orientation/consciousness: patient oriented x3 HENMT: Mouth: Yes moist mucous membranes Neck: Neck: normal visual inspection Chest: Chest palpation & inspection: normal inspection of the chest Resp: Effort & Inspection: normal respiratory effort Auscultation: clear to auscultation bilaterally Cardio: Jugular venous distension: no JVD Rate: regular rate Rhythm: regular rhythm GI: Auscultation: normal bowel sounds Rectal Exam: deferred Other: Mild tenderness in the epigastrium abdomen otherwise flat and nontender Neuro: General: patient oriented x3 and moves all extremities Speech: normal speech Extrem: General: normal exam except as noted Psych: Mental Status: mental status grossly normal Speech and movement: Normal speech and movement present Affect: normal affect Thought content: Yes Normal thought content present Objective Data Vital Signs Vital Signs: Vital Signs - 24 hr 04/17/19 08:51 04/17/19 09:05 04/17/19 10:06 Temperature 36.8 C 36.8 C 36.6 C Pulse Rate 90 93 87 Respiratory Rate 16 16 14 Blood Pressure 103/67 104/56 L 88/58 L Pulse Oximetry 97 100 100 04/17/19 11:41 04/17/19 12:00 04/17/19 14:00
[2019-04-18 08:37] LABS: Hematocrit 23.9 % (42.0-52.0); Hemoglobin 7.3 g/dL (14.0-18.0)
--- NOTE | 2019-04-18 08:49 | PM.IMPN ---
Progress Note: A&P Assessment and Plan (1) GI bleed: Onset Date: ~04/16/19 Qualifiers: GI bleed type/associated pathology: duodenal ulcer Qualified Code(s): 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 Sandoval consulted and appreciate input. EGD done yesterday with bleeding duodenal ulcer seen with cauterization and injection of epinephrine. Still with active GI blled with continued bloody stools. Hemoglobin still only 7.3 this morning. Has received 6 units PRBC so far with additional 2 units PRBC ordered today. Plan for repeat EGD this afternoon. Continue IV Protonix q.12 hours. Continue sucralfate as ordered by GI. Continue to monitor H&H. Continue to transfuse as needed. (2) Anemia: Onset Date: Unknown Qualifiers: Anemia type: other cause Other causes of anemia: acute posthemorrhagic Qualified Code(s): D62 - Acute posthemorrhagic anemia Code(s): D64.9 - Anemia, unspecified Status: Acute Assessment and Plan: Result of GI bleed as noted above. Continue treatment as noted above. (3) Hypotension: Qualifiers: Hypotension type: hypotension due to hypovolemia Qualified Code(s): I95.89 - Other hypotension; E86.1 - Hypovolemia Code(s): I95.9 - Hypotension, unspecified Status: Acute Assessment and Plan: Result of blood volume loss. Blood pressure reviewed on to 320 and still low normal but better than yesterday morning. Continuing receive transfusions of PRBC as noted above. Remains on IV fluids. Will continue to monitor. (4) Essential (primary) hypertension: Code(s): I10 - Essential (primary) hypertension Status: Acute Assessment and Plan: Blood pressure reviewed on 04/18/2019. Blood pressure low as noted above. Continue to hold home losartan and Bystolic. Continue to monitor. (5) Chronic diastolic (congestive) heart failure: Code(s): I50.32 - Chronic diastolic (congestive) heart failure Status: Acute Assessment and Plan: No present exacerbation. Home losartan and Bystolic remain on hold. Echocardiogram from November 2018 with EF 60-65% and diastolic dysfunction grade 1. WIll monitor with need for transfusions and IV fluids. (6) Acute pancreatitis: Onset Date: ~03/2019 Qualifiers: Acute pancreatitis complication: no infection or necrosis Pancreatitis type: biliary Qualified Code(s): K85.10 - Biliary acute pancreatitis without necrosis or infection Code(s): K85.90 - Acute pancreatitis without necrosis or infection, unspecified Status: Resolved Assessment and Plan: Initial workup in the emergency room consistent with pancreatitis with elevated lipase. Lipase normal at 43 today. LFTs now normal. CT scan and RUQ ultrasound with concern for gallbladder issues. General surgery consulted from the emergency room and appreciate input. May have had gallstone that passed but not significant issue at this time. (7) Cholelithiasis: Onset Date: Unknown Qualifiers: Biliary obstruction: without biliary obstruction Cholelithiasis location: other site Qualified Code(s): K80.80 - Other cholelithiasis without obstruction Code(s): K80.20 - Calculus of gallbladder without cholecystitis without obstruction Status: Acute Assessment and Plan: As seen on CT and RUQ ultrasound. Appreciate input from General surgery. No surgery at the present time. Continue treatment of GI issues as noted above. (8) CLL (chronic lymphocytic leukemia): Onset Date: Unknown Code(s): C91.10 - Chronic lymphocytic leukemia of B-cell type not having achieved remission Status: Acute Assessment and Plan: Known disease. Not actively being treated. WBC is increased to 57.4 today. Most likely result of stre
[2019-04-18] MEDS: SODIUM CHLORIDE 0.9% IV 250 ML 30 ML IV CONT ×3 (09:44→21:23)
[2019-04-18] MEDS: MUPIROCIN 2% OINT 22 GM TUBE 1 APPLIC EACH NARE ×2 (09:45→19:40)
[2019-04-18] MEDS: PANTOPRAZOLE SODIUM IV 40 MG VIAL IV PUSH ×2 (09:45→19:40)
[2019-04-18] MEDS: SODIUM CHLORIDE 0.9% IV 500 ML 150 ML IV CONT (11:47)
--- NOTE | 2019-04-18 11:54 | P.PNAN_ITS ---
Anes - Eval Final PreProcedure Day of Procedure 04/18/19 11:54 Patient weight: normal Lungs: clear to auscultation Airway: Mallampati scale class II Neurological: alert and oriented Last oral intake: >/= 8 hours ASA classification: IV Emergent: yes Anesthetic plan: proceed Anesthesia type and monitoring: general GIVS Informed Consent: The patient's anesthetic plan and its attendant risks and benefits were discussed with the patient/family/POA. Questions were solicited a nd answers provided to the satisfaction of the patient/family/POA.
--- NOTE | 2019-04-18 12:14 | P.OPB_ITS ---
Procedure Note - Brief Procedure Note - Brief Date of procedure: 04/18/19 Pre-op diagnosis: pancreatitis/cholelithiasis Surgeon: Jonnie Sandoval MD Date of procedure 05/2019 Procedure EGD Preop diagnosis upper GI bleeding. Postop diagnosis duodenal ulcer. No active bleeding. Informed consent for the procedure is obtained from the patient. The risks benefits alternatives indications are discussed thoroughly with the patient prior to proceeding. The risks include but are not limited to adverse reaction for medications. The risk of bleeding and possible need for transfusion. The risk for missed pathology. The risk for aspiration eccentric. Anesthesia is provided by anesthesia service. Instrument is the [employer] video endoscope. Endoscope is passed to the esophagus which appears normal squamocolumnar junction intact at 40cm. Stomach is seen in its entirety including U-turn is normal. No blood is noted in the stomach. Duodenum reveals normal bulb and sweep to 2nd portion in the area of the duodenal sweep small area of cautery from previous endoscopy is noted. No active bleeding at this time. Impression duodenal ulcer. Status post previous cautery. No active bleeding. Suspect that low blood pressure low blood count is from a quell abrasion. Likely from massive GI bleeding in yesterday. Plan is to continue IV rehydration. Transfuse to a stable hematocrit. Limit diet to liquid diet at the present time. Continue high-dose proton pump inhibitor. Avoid nonsteroidal anti-inflammatory agents.
[2019-04-18] MEDS: TUBING, BLOOD PLUM PUMP TUBING 1 EACH XX ×3 (13:21→21:23)
--- NOTE | 2019-04-18 13:43 | WPDINTPN ---
Progress Note: A&P Assessment and Plan (1) Anemia: Onset Date: Unknown Qualifiers: Anemia type: other cause Other causes of anemia: acute posthemorrhagic Qualified Code(s): D62 - Acute posthemorrhagic anemia Code(s): D64.9 - Anemia, unspecified Status: Acute Assessment and Plan: acute anemia most likely related to GI bleed. Has a history of ulcer, - appreciate GI evaluation and recommendation - patient is s/p EGD 04/17 amd 04/18. - continue PPI q.12 hours - transfused 3 units of packed RBCs, - H/H continues to drop however repeat EGd without any active bleeding . still having bloody bowel movements ? old vs new (2) GI bleed: Onset Date: ~04/16/19 Qualifiers: GI bleed type/associated pathology: duodenal ulcer Qualified Code(s): K26.4 - Chronic or unspecified duodenal ulcer with hemorrhage Code(s): K92.2 - Gastrointestinal hemorrhage, unspecified Status: Acute Assessment and Plan: GI bleed patient initially had melena but overnight started to have some red blood per rectum. - EGD with duodenal ulcer with bleeding vessel seen 04/17- epi injection and cauterization done EGD repeated 04/18 showing no active bleeding at the site of ulcer. (3) Hypotension: Qualifiers: Hypotension type: hypotension due to hypovolemia Qualified Code(s): I95.89 - Other hypotension; E86.1 - Hypovolemia Code(s): I95.9 - Hypotension, unspecified Status: Acute Assessment and Plan: patient hypotensive likely related to acute gastroenteritis hemorrhage. Patient transfuse 3 units of packed RBCs, so given 250 mL IV fluid bolus per GI improvement in blood pressures. - will transfuse 2 more units today . - surgery has been consulted - may benefit from IR embolisation of GDA if continues to bleed (4) Acute pancreatitis: Onset Date: ~03/2019 Qualifiers: Acute pancreatitis complication: no infection or necrosis Pancreatitis type: biliary Qualified Code(s): K85.10 - Biliary acute pancreatitis without necrosis or infection Code(s): K85.90 - Acute pancreatitis without necrosis or infection, unspecified Status: Resolved Assessment and Plan: patient had significantly elevated lipase levels on admission, on 04/17/2019 a lipase levels have normalized - LFTs also normalizing, CT scan and right upper quadrant ultrasound show cholelithiasis without obstruction and changes of chronic cholecystitis . (5) CLL (chronic lymphocytic leukemia): Onset Date: Unknown Code(s): C91.10 - Chronic lymphocytic leukemia of B-cell type not having achieved remission Status: Acute Assessment and Plan: patient with known CLL of B-cell type - WBC elevated to 50,000, likely Leukomoid reaction secondary to GI bleed (6) Essential (primary) hypertension: Code(s): I10 - Essential (primary) hypertension Status: Acute Assessment and Plan: will hold all anti hypertensives at this time (7) Cholelithiasis: Onset Date: Unknown Qualifiers: Biliary obstruction: without biliary obstruction Cholelithiasis location: other site Qualified Code(s): K80.80 - Other cholelithiasis without obstruction Code(s): K80.20 - Calculus of gallbladder without cholecystitis without obstruction Status: Acute Assessment and Plan: - right upper quadrant ultrasound showed cholelithiasis with no pericholecystic fluid, gallbladder wall thickening or biliary duct dilatation - CT scan of the abdominal pelvis showed stable moderate splenomegaly, cholelithiasis, gallbladder wall thickening may be secondary to chronic liver disease, interstitial edema or chronic cholecystitis - surgery following the patient, no acute intervention at this time (8) DVT prophylaxis: Code(s): Z29.9 - Encounter for prophylactic measures, unspecified Status: Acute Assessment and Plan: SCDs Ad
[2019-04-18 14:41] LABS: Hematocrit 26.5 % (42.0-52.0); Hemoglobin 8.3 g/dL (14.0-18.0)
[2019-04-18 20:05] LABS: Hematocrit 22.8 % (42.0-52.0)
[2019-04-18 20:08] LABS: Hemoglobin 6.9 g/dL (14.0-18.0)
[2019-04-18] MEDS: ACETAMINOPHEN 325 MG TABLET 650 MG PO (23:56)
[2019-04-19] VITALS (11 sets, daily range): BP systolic 103–138; BP diastolic 52–77; PULSE 76–99; RESP 18–31; TEMP 36.6; O2SAT 96–100; BMI 25.7
[2019-04-19 02:21] LABS: Hematocrit 26.7 % (42.0-52.0); Hemoglobin 8.3 g/dL (14.0-18.0); Mean Corpuscular HGB Conc 31.1 g/dl (32-36); Mean Corpuscular Hemoglobin 29.5 pg (26-34); Mean Platelet Volume 9.2 fl (7.4-10.4); Platelet Count Result 140 k/mm3 (150-375); Red Blood Count 2.81 M/mm3 (4.6-6.20); Red Cell Distribution Width 16.6 % (11.5-14.5)
[2019-04-19 02:27] LABS: Blood Urea Nitrogen 46 mg/dL (9-20); Calcium 7.2 mg/dL (8.4-10.2); Carbon Dioxide 20 mmol/L (22-30); Chloride 110 mmol/L (98-107); Estimated CRCL calculation 49 ml/min; Estimated Glomerular Filt Rate > 60; Glucose 106 mg/dL (75-110); Potassium 4.6 mmol/L (3.4-5.0); Sodium 135 mmol/L (137-145)
[2019-04-19 02:40] LABS: Lymphocytes Absolute Manual 35.52 K/mm3 (1.1-4.5); Monocytes Absolute Manual 0.48 K/mm3 (0.1-0.90); Monocytes Percent Manual 1 % (3-9); Neutrophils Percent Manual 25 % (46-73); Total Cells Counted 100
[2019-04-19 02:43] LABS: Platelet Estimate Adequate (Adequate)
[2019-04-19 02:44] LABS: Hypochromasia 1+ (NORMAL)
[2019-04-19 02:45] LABS: Smudge Cells MANY
[2019-04-19 02:47] LABS: Atypical Lymphocytes Present
[2019-04-19] MEDS: SUCRALFATE 1 GM TABLET PO ×3 (05:41→16:18)
[2019-04-19] MEDS: LACTATED RINGERS 1,000 ML 125 ML IV CONT ×2 (05:42→16:15)
--- NOTE | 2019-04-19 07:57 | PM.PNGS ---
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 Alberts, chief knowledge officer. Patient's bleeding seems to stop at the moment. Hemoglobin okay at 8.3. Patient is still having some bloody stools but states that these are slowing down. Received 2 units of fresh frozen plasma yesterday may need some more. I do not believe that surgical intervention will help this at time as we do not know the specific site for continued bleeding. Also it is not roldan at this time to electively do laparoscopy to remove his gallbladder which has a few stones in it which may have caused this pancreatitis that was present at admission. Certainly if he needed a laparotomy for bowel resection once we know where the bleeding is coming from, the gallbladder could possibly be removed at that time. Otherwise would not recommend surgery at this point until we know a certain site within the intestinal tract that we are aiming to direct our attention to as far as suture ligation or bowel resection. (2) Anemia: Onset Date: Unknown Qualifiers: Anemia type: other cause Other causes of anemia: acute posthemorrhagic Qualified Code(s): D62 - Acute posthemorrhagic anemia Code(s): D64.9 - Anemia, unspecified Status: Acute Assessment and Plan: At this time related to his GI bleed. Earlier possibly related to his CLL. (3) Cholelithiasis: Onset Date: Unknown Qualifiers: Biliary obstruction: without biliary obstruction Cholelithiasis location: other site Qualified Code(s): K80.80 - Other cholelithiasis without obstruction Code(s): K80.20 - Calculus of gallbladder without cholecystitis without obstruction Status: Acute (4) CLL (chronic lymphocytic leukemia): Onset Date: Unknown Code(s): C91.10 - Chronic lymphocytic leukemia of B-cell type not having achieved remission Status: Acute Subjective Subjective Date/Time Seen: 04/19/19 07:57 Patient complain of cramping in the abdomen. Also some sharp pain in the left upper quadrant. States that his stools have slow down some but still having occasional bloody stools. States he may be developing a sore on his coccyx. He is trying to lay his sides periodically. Review of Systems Constitutional: Constitutional: Reports no additional constitutional complaints ENT: Reports other (Mucous Membranes moist.) Cardiovascular: Cardiovascular: Denies dyspnea Respiratory: Respiratory: Denies pain on inspiration and Denies dyspnea Musculoskeletal: Musculoskeletal: Reports other (No calf swelling or edema) Integumentary/Breasts: Skin/Breast: Reports system reviewed and no additional complaints, except as docu Exam Const: General: cooperative, no acute distress, alert and awake Orientation/consciousness: patient oriented x3 HENMT: Mouth: Yes moist mucous membranes Neck: Neck: normal visual inspection Chest: Chest palpation & inspection: normal inspection of the chest Resp: Effort & Inspection: normal respiratory effort Auscultation: clear to auscultation bilaterally Cardio: Jugular venous distension: no JVD Rate: regular rate Rhythm: regular rhythm GI: GI Palp: Yes abdominal tenderness ( Mild left upper quadrant) and No Hernia present Auscultation: normal bowel sounds Rectal Exam: deferred Other: patient just getting off a bed velazquez when I saw him. Stool was dark tarry black. Neuro: General: patient oriented x3 and moves all extremities Speech: normal speech Extrem: General: normal exam except as noted Psych: Mental Status: mental status grossly normal Speech and movement: Normal speech and movement present
[2019-04-19] MEDS: MUPIROCIN 2% OINT 22 GM TUBE 1 APPLIC EACH NARE (08:08)
[2019-04-19] MEDS: PANTOPRAZOLE SODIUM IV 40 MG VIAL IV PUSH (08:09)
[2019-04-19 08:20] LABS: Hematocrit 25.8 % (42.0-52.0); Hemoglobin 8.1 g/dL (14.0-18.0)
--- NOTE | 2019-04-19 09:19 | WPDGIPROGNO ---
Progress Note: A&P Additional Plan Patient alert this morning. He notices less frequent stools. Still passing old blood. He noted some left upper quadrant discomfort throughout the night. Physical exam reveals Vital Signs to be stable. Systolic blood pressure of approximately 100. Lungs are clear. Abdomen bowel sounds are present soft no obvious localized tenderness. Lab tests reveal hemoglobin 8.1 macro 25.8. He received 2 more units of transfusion last night. Impression 1. GI blood loss. 2. Duodenal ulcer . Endoscopy yesterday revealed cessation of bleeding. I cannot definitively exclude intermittent GI blood loss. Alternatively other site could be bleeding. 3. CLL. This likely also contributes to underlying anemia. 4. Gallstones. 5. Resolving pancreatitis. Plan is to continue to monitor hemoglobin. Continue high-dose proton pump inhibitor for duodenal ulcer. If bleeding persists follow-up EGD and/or nuclear medicine bleeding scan may be required. Long discussion with periodontal assistant regarding management plan. Will continue to follow with you closely. Agree with surgical plans to defer surgery for now. Subjective Date/time seen: 04/19/19 09:19 Objective Data Vital Signs Vital Signs: Vital Signs - 24 hr 04/18/19 10:00 04/18/19 11:15 04/18/19 11:16 Temperature 37.1 C 37.1 C Pulse Rate 93 88 85 Respiratory Rate 26 H 28 H Blood Pressure 113/54 L 113/54 L Pulse Oximetry 98 99 04/18/19 11:30 04/18/19 11:41 04/18/19 12:00 Temperature 37.1 C 37.0 C 37.0 C Pulse Rate 85 85 90 Respiratory Rate 28 H 22 H 28 H Blood Pressure 113/54 L 115/60 Pulse Oximetry 99 99 99 04/18/19 12:30 04/18/19 13:15 04/18/19 14:00 Temperature 37.0 C 36.9 C 36.5 C Pulse Rate 85 84 73 Respiratory Rate 22 H 25 H 24 H Blood Pressure 115/60 136/70 114/73 Pulse Oximetry 100 100 100 04/18/19 14:06 04/18/19 16:00 04/18/19 18:00 Temperature 36.5 C 36.6 C Pulse Rate 73 87 91 Respiratory Rate 24 H 21 H 27 H Blood Pressure 114/73 90/61 L 96/65 L Pulse Oximetry 100 100 97 04/18/19 20:00 04/18/19 21:29 04/18/19 21:45 Temperature 36.5 C 36.4 C 36.4 C L Pulse Rate 95 95 100 Respiratory Rate 16 24 H 17 Blood Pressure 92/60 L 95/67 L 112/68 Pulse Oximetry 100 100 100 04/18/19 22:00 04/18/19 22:45 04/18/19 23:31 Temperature 36.4 C L 36.8 C 36.3 C L Pulse Rate 93 93 90 Respiratory Rate 24 H 24 H 24 H Blood Pressure 99/68 L 94/72 L 95/69 L Pulse Oximetry 100 99 100 04/18/19 23:36 04/18/19 23:51 04/19/19 00:00 Temperature 36.4 C L 36.9 C Pulse Rate 94 88 87 Respiratory Rate 21 H 18 Blood Pressure 95/69 L 110/72 Pulse Oximetry 100 100 04/19/19 00:51 04/19/19 02:00 04/19/19 04:00 Temperature 36.6 C 36.6 C Pulse Rate 78 80 82 Respiratory Rate 21 H 20 23 H Blood Pressure 114/52 L 117/60 103/76 Pulse Oximetry 100 100 100 04/19/19 06:00 Temperature Pulse Rate 84 Respiratory Rate 21 H Blood Pressure 115/68 Pulse Oximetry 100 Intake/Output Intake/Output: Intake & Output 04/16/19 04/17/19 04/18/19 04/19/19 23:59 23:59 23:59 23:59 Intake Total 3550 4330 3932 1353 Output Total 1010 1050 550 400 Balance 2540 3280 3382 953 Meds/Results Medications: Active Medications Generic Name Dose Route Start Last Admin Trade Name Freq PRN Reason Stop Dose Admin Acetaminophen 650 mg 04/17/19 22:34 04/18/19 23:56 Tylenol Tablet PO 650 mg Q6H PRN Administration Mild Pain (1-3) or Fever Albuterol 1 puff 04/16/19 13:16 Proventil Hfa INHALATION Q4HRT PRN Shortness Of Breath Lactated Ringer's 1,000 mls @ 125 mls/hr 04/15/19 17:20 04/19/19 05:42 Lr - Lactated Ringers Iv IV CONT 125 mls/hr .Q8H DACIA Administration Sodium Chloride 500 mls @ 10 mls/hr 04/18/19 12:15 04/18/19 12:15 Normal Saline Iv IV CONT Infused .Q24H DACIA Infusion Morphine Sulfate 2 mg 04/19/19 09:12 Morphine Sulfate Inj IV PUSH Q2H PRN Abdominal Cramping Mupirocin 1 a
[2019-04-19] MEDS: ACETAMINOPHEN 325 MG TABLET 650 MG PO (11:03)
--- NOTE | 2019-04-19 15:16 | WPDINTPN ---
Progress Note: A&P Assessment and Plan (1) Anemia: Onset Date: Unknown Qualifiers: Anemia type: other cause Other causes of anemia: acute posthemorrhagic Qualified Code(s): D62 - Acute posthemorrhagic anemia Code(s): D64.9 - Anemia, unspecified Status: Acute Assessment and Plan: acute anemia most likely related to GI bleed. Has a history of ulcer, - appreciate GI evaluation and recommendation - patient is s/p EGD 04/17 amd 04/18. - continue PPI q.12 hours - transfused 8 units of packed RBCs so far, - H/H continues to drop however repeat EGd without any active bleeding . still having bloody bowel movements . Plan for tx to [facility] with IR facilities for possible GDA embolisation. 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 - EGD with duodenal ulcer with bleeding vessel seen /- epi injection and cauterization done EGD repeated 04/18 showing no active bleeding at the site of ulcer. (3) Hypotension: Qualifiers: Hypotension type: hypotension due to hypovolemia Qualified Code(s): I95.89 - Other hypotension; E86.1 - Hypovolemia Code(s): I95.9 - Hypotension, unspecified Status: Acute Assessment and Plan: patient hypotensive likely related to acute gastroenteritis hemorrhage. Patient transfuse 3 units of packed RBCs, so given 250 mL IV fluid bolus per GI improvement in blood pressures. - BP has stabalized now and is off all presors - surgery has been consulted - may benefit from IR embolisation of GDA if continues to bleed (4) Acute pancreatitis: Onset Date: ~03/2019 Qualifiers: Acute pancreatitis complication: no infection or necrosis Pancreatitis type: biliary Qualified Code(s): K85.10 - Biliary acute pancreatitis without necrosis or infection Code(s): K85.90 - Acute pancreatitis without necrosis or infection, unspecified Status: Resolved Assessment and Plan: patient had significantly elevated lipase levels on admission, on 04/17/2019 ,lipase levels have normalized - LFTs also normalizing, CT scan and right upper quadrant ultrasound show cholelithiasis without obstruction and changes of chronic cholecystitis . - No plans for Sx (5) CLL (chronic lymphocytic leukemia): Onset Date: Unknown Code(s): C91.10 - Chronic lymphocytic leukemia of B-cell type not having achieved remission Status: Acute Assessment and Plan: patient with known CLL of B-cell type - WBC elevated to 50,000, likely Leukomoid reaction secondary to GI bleed (6) Essential (primary) hypertension: Code(s): I10 - Essential (primary) hypertension Status: Acute Assessment and Plan: will hold all anti hypertensives at this time (7) Cholelithiasis: Onset Date: Unknown Qualifiers: Biliary obstruction: without biliary obstruction Cholelithiasis location: other site Qualified Code(s): K80.80 - Other cholelithiasis without obstruction Code(s): K80.20 - Calculus of gallbladder without cholecystitis without obstruction Status: Acute Assessment and Plan: - right upper quadrant ultrasound showed cholelithiasis with no pericholecystic fluid, gallbladder wall thickening or biliary duct dilatation - CT scan of the abdominal pelvis showed stable moderate splenomegaly, cholelithiasis, gallbladder wall thickening may be secondary to chronic liver disease, interstitial edema or chronic cholecystitis - surgery following the patient, no acute intervention at this time (8) DVT prophylaxis: Code(s): Z29.9 - Encounter fo
[2019-04-19 15:21] LABS: Hematocrit 22.9 % (42.0-52.0); Hemoglobin 7.2 g/dL (14.0-18.0)
--- NOTE | 2019-04-19 17:04 | PM.TDS ---
Transfer Discharge Sum: Prov Provider Date of admission: 04/15/19 17:18 Primary care physician: Amadeo Membreno MD Admitting clinician: Abimael Borjas MD Consults: 04/15/19 17:19 Consult to Physician Routine Comment: Consulting Provider: Jaden Keys Reason for consultation: cholelithiasis Has provider been notified: Yes 04/16/19 Consult to Physician Routine Comment: Spoke with Dr. Sandoval @ [id number] Consulting Provider: Jonnie Sandoval physically impaired teacher/MD group to consult: physically impaired teacher for GI Reason for consultation: Blood in stool Has provider been notified: Yes 04/17/19 Consult to Physician Routine Comment: Consulting Provider: Tony Andujar Reason for consultation: hypotension, GI bleed Has provider been notified: Yes Attending physician on discharge: Isaac Hinds Discharging clinician: Isaac Hidns Anticipated date of transfer: 04/19/19 DS: Diagnosis Admitting Diagnosis Admitting Diagnosis: Biliary acute pancreatitis without necrosis or infection Discharge Diagnosis (1) GI bleed: Onset Date: ~04/16/19 Qualifiers: GI bleed type/associated pathology: duodenal ulcer Qualified Code(s): 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 Sandoval consulted and appreciate input. EGD done 04/17 and 04/18/19 with bleeding duodenal ulcer seen requiring cauterization and injection of epinephrine. Still with active GI bleed with continued bloody stools. Hemoglobin 10.9 on admission but dropped to 6.7. Has received 10U of PRBC and 1U of FFP and Hgb 7.3 this morning. Continue IV Protonix and sucralfate as ordered by GI. Plan to transfer to [facility] for IR for possible embolizatin. (2) Anemia: Onset Date: Unknown Qualifiers: Anemia type: other cause Other causes of anemia: acute posthemorrhagic Qualified Code(s): D62 - Acute posthemorrhagic anemia Code(s): D64.9 - Anemia, unspecified Status: Acute Assessment and Plan: Result of GI bleed as noted above. Continue treatment as noted above. (3) Hypotension: Qualifiers: Hypotension type: hypotension due to hypovolemia Qualified Code(s): I95.89 - Other hypotension; E86.1 - Hypovolemia Code(s): I95.9 - Hypotension, unspecified Status: Acute Assessment and Plan: Result of blood volume loss. Blood pressure monitored closely and improved at time of transfer. Will continue to monitor. (4) Essential (primary) hypertension: Code(s): I10 - Essential (primary) hypertension Status: Acute Assessment and Plan: Blood pressure monitored closely. Continue to hold home losartan and Bystolic. Continue to monitor. (5) Chronic diastolic (congestive) heart failure: Code(s): I50.32 - Chronic diastolic (congestive) heart failure Status: Acute Assessment and Plan: No present exacerbation. Home losartan and Bystolic remain on hold. Echocardiogram from November 2018 with EF 60-65% and diastolic dysfunction grade 1. Will monitor. (6) Acute pancreatitis: Onset Date: ~03/2019 Qualifiers: Acute pancreatitis complication: no infection or necrosis Pancreatitis type: biliary Qualified Code(s): K85.10 - Biliary acute pancreatitis without necrosis or infection Code(s): K85.90 - Acute pancreatitis without necrosis or infection, unspecified Status: Resolved Assessment and Plan: Initial workup in the emergency room consistent with pancreatitis with elevated lipase. Lipase normal now at 43. LFTs now normal. CT scan and RUQ ultrasound with concern for gallbladder issues. General surgery consulted from the emergency room and appreciate input. May have had gallstone that passed but not significant issue at this time. (7) Cholelithiasis: Onset Date: Unknown
== END 2019-04-19 19:12 | disposition short-term general hospital (02) | DRG 377 ==
LOC: ANHED 17:28 → ANH3MED 04-16 21:15 → ANHICU 04-17 15:26 → ANH3MED 04-21 13:55 → ANHICU 04-21 13:55
PROVIDERS: Hospitalist; Internal Medicine; Internal Medicine Critical Care Medicine; Internal Medicine Gastroenterology; Admitting Provider Internal Medicine; Emergency Provider General Practice; PCP Family Medicine; Visit Provider Internal Medicine
PROC: 0DJ08ZZ Inspection of Upper Intestinal Tract, Via Natural or Artificial Opening Endoscopic (ICD-10-PCS; CPT 43235; principal; 2019-04-17 11:00)
DX: K26.4 Chronic or unspecified duodenal ulcer with hemorrhage (principal); K85.10 Biliary acute pancreatitis without necrosis or infection; D62 Acute posthemorrhagic anemia; I13.0 Hypertensive heart and chronic kidney disease with heart failure and stage 1 through stage 4 chronic kidney disease, or unspecified chronic kidney disease; I50.32 Chronic diastolic (congestive) heart failure; C91.10 Chronic lymphocytic leukemia of B-cell type not having achieved remission; E87.1 Hypo-osmolality and hyponatremia; K80.20 Calculus of gallbladder without cholecystitis without obstruction; N18.3 Chronic kidney disease, stage 3 (moderate); I95.89 Other hypotension; E86.1 Hypovolemia; I10 Essential (primary) hypertension; K21.9 Gastro-esophageal reflux disease without esophagitis; K58.9 Irritable bowel syndrome, unspecified; F32.9 Major depressive disorder, single episode, unspecified; D63.0 Anemia in neoplastic disease; M19.012 Primary osteoarthritis, left shoulder; M19.011 Primary osteoarthritis, right shoulder; Z86.73 Personal history of transient ischemic attack (TIA), and cerebral infarction without residual deficits; Z85.828 Personal history of other malignant neoplasm of skin; Z98.42 Cataract extraction status, left eye; Z98.41 Cataract extraction status, right eye
CPT/HCPCS: 36415; 36430; 74177; 76705; 80048; 80053; 81001; 83690; 83735; 84100; 84484; 85014; 85018; 85025; 85027; 85610; 85730; 86850; 86900; 86901; 86923; 87081; 93005; 94640; 99285; A9270; C9113; J0131; J0171; J1885; J2370; J2704; J7040; J7050; J7120; P9016; P9017; Q9967

== ENCOUNTER 2019-11-08 17:31 | Emergency (ER) | payer MEDICARE, SELFPAY ==
--- NOTE | ~2019-11-08 | XR_ITS ---
XR knee LT 3V, XR femur LT min 2V 11/08/2019 18:11 Indication: Left hip and leg pain after fall Procedure: 2 views left femur and 3 views left knee Comparison: No prior studies for comparison. Findings: There is a comminuted fracture of the left femur distally extending from the distal diaphys is with intra-articular extension distally. There is medial/dorsal displacement and dorsal angulation . Osteopenia. Moderate diffuse soft tissue swelling. Lower lumbar spondylosis partially visualized. Impression: 1: Comminuted displaced, angulated intra-articular fracture of the distal femur. Reviewed, dictated and finalized at location A. Impression: 1: Comminuted displaced, angulated intra-articular fracture of the distal femur . Impression: 1: Comminuted displaced, angulated intra-articular fracture of the distal femur .
[2019-11-08 17:19] VITALS: BP 133/85; PULSE 58; RESP 17; TEMP 36.6; O2SAT 100
[2019-11-08] MEDS: MORPHINE SULFATE 4 MG/ML INJ IV PUSH (17:47)
--- NOTE | 2019-11-08 18:05 | ED.LOWEXIN ---
HPI - Extremity Injury (Lower) General Chief Complaint: Extremity Injury, Lower Stated Complaint: FALL/KNEE PAIN History of Present Illness HPI Narrative: Patient is an 79-year-old male who presents ER with a left knee pain. Patient was sitting on the ground crosslegged and tried to stand back up. His right leg was asleep so it buckled causing him to drive his left knee into the ground. He had sudden onset of pain and swelling. No new numbness or tingling. Did not strike his head or lose consciousness. Related Data Home Medications Medication Instructions Recorded Confirmed cholecalciferol (vitamin D3) 10 10 mcg PO DAILY 10/18/19 10/18/19 mcg (400 unit) capsule omeprazole 40 mg capsule,delayed 40 mg PO DAILY 10/18/19 10/18/19 release pantoprazole 40 mg tablet,delayed 40 mg PO QAM 10/18/19 10/18/19 release Allergies Allergy/AdvReac Type Severity Reaction Status Date / Time fentanyl Allergy Severe Loss of Verified 11/08/19 19:38 Consciousness hydrocodone Allergy Severe Loss of Verified 11/08/19 19:38 Consciousness oxycodone Allergy Severe Loss of Verified 11/08/19 19:38 Consciousness SILKSUTURES Allergy Severe REDNESS Uncoded 10/18/19 11:20 Review of Systems Review of Systems: All systems reviewed & are unremarkable except as noted in HPI and below Constitutional: Constitutional: Denies chills, Denies fever(s) and Denies weakness Cardiovascular: Cardiovascular: Denies chest pain and Denies radiating jaw, neck or arm pain Gastrointestinal: Gastrointestinal: Denies abdominal pain, Denies nausea and Denies vomiting Musculoskeletal: Musculoskeletal: Reports arthralgias and Reports joint swelling Neurologic: Denies focal weakness and Denies numbness [facility] Social History Social History Social History: Patient is currently living in the and independent apartments at [facility]. He does volunteer at [employer] in [place], [place]. 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 No alcohol or tobacco use. He is . He is a full code. He does have 7 children. Smoking status: Never smoker Alcohol intake: never Substance use: never Additional living arrangements comments: Lives in the independent apartments at [facility]. Additional occupation/education comments: Retired anesthesiologist. Gender identity (if verbalized by the patient): Male Spiritual care concerns: No Exam Narrative: Exam Narrative: GENERAL: Well-appearing, well-nourished, and in no acute distress. HEAD: Normocephalic, atraumatic. ENT: Mucous membranes moist. CHEST: Clear to auscultation. No respiratory distress. HEART: Regular rate and rhythm. Normal peripheral pulses. EXTREMITIES: Deformity and tenderness to the left knee which appears to be more likely related to distal femur. No ankle tenderness or swelling. 2+ dorsalis pedis pulses with sensation intact. SKIN: Warm, dry, no rash. NEURO: No focal deficits. Alert and oriented x3. PSYCH: Normal mood and affect. Course Course Emergency Course: Very difficult to transfer [facility] Was able to get the patient accepted to [facility] in [place]. I spoke with Dr. Rainey who feels comfortable caring for the patient from an orthopedic perspective. Patient has been accepted to the ER by Dr. Giron. Patient had brief hypotension after receiving some Dilaudid as well as brief apnea. He received nasal cannula oxygen 1 L of fluid. Blood pressures been stable since then. Vital Signs Vital signs: Vital Signs Temperature 97.9 F 11/08/19 17:19 Pulse Rate 58 L 11/08/19 17:19 Respiratory Rate 17 11/08/19 17:19 Blood Pressure 133/85 11/08/19 17:19 Pulse Oximetry 100 11/08/19 17:19 Temperature 97.9 F 11/08/19 17:19 Pulse Rate 68 11/08/19 20:51 Respiratory Rate 18
[2019-11-08 18:23] VITALS: BP 106/65; PULSE 59; RESP 17; O2SAT 97
[2019-11-08] MEDS: ONDANSETRON INJ 4 MG/2 ML VIAL ×2 (18:54→21:31)
[2019-11-08] MEDS: SODIUM CHLORIDE 0.9% IV 1,000 ML 999 ML IV CONT (19:54)
[2019-11-08 20:02] VITALS: BP 115/73; PULSE 66; RESP 19; O2SAT 97
--- NOTE | 2019-11-08 20:15 | PC.NURSE ---
pt requesting pain medication at this time. edp made aware. no new orders.
[2019-11-08 20:51] VITALS: BP 102/68; PULSE 68; RESP 18; O2SAT 98
[2019-11-08] MEDS: MORPHINE SULFATE 2 MG/ML INJ IV PUSH (20:58)
[2019-11-08] MEDS: SODIUM CHLORIDE 0.9% IV 1,000 ML 1000 ML (21:10)
[2019-11-08 21:33] VITALS: BP 108/64; PULSE 84; RESP 19; TEMP 36.2; O2SAT 100
== END 2019-11-08 21:30 | disposition short-term general hospital (02) ==
PROVIDERS: Emergency Provider Emergency Medicine; PCP Family Medicine
DX: S72.402A Unspecified fracture of lower end of left femur, initial encounter for closed fracture (principal); W18.30XA Fall on same level, unspecified, initial encounter
CPT/HCPCS: 36415; 73552; 73562; 86850; 86900; 86901; 96361; 96374; 96375; 96376; 99285; J1170; J2270; J2405; J7030

== ENCOUNTER 2020-02-12 15:41 | Inpatient (IN) | payer MEDICARE, SELFPAY ==
[2020-02-12] VITALS (43 sets, daily range): BP systolic 85–1234; BP diastolic 44–88; PULSE 58–84; RESP 17–32; TEMP 36.5–37.9; O2SAT 88–100; BMI 24.7; BMI 25.0
--- NOTE | ~2020-02-12 | XR_ITS ---
EXAMINATION: XR chest 1V portable DATE: 02/12/2020 16:19 INDICATION: Shortness of breath. TECHNIQUE: A single frontal view of the chest was obtained on 2 radiographs. COMPARISON: Chest 2 views 04/07/2019, CT abdomen and pelvis 04/15/2019 FINDINGS: There is chronic mild elevation of right hemidiaphragm. There are airspace opacities in all right lung zones and left mid and lower lung zones. No pleural effusion or pneumothorax. The heart s ize is normal. There are old healed right rib fractures. IMPRESSION: 1. Diffuse lung disease, consistent with pneumonia. Reviewed, dictated and finalized at location A. SHIELD TECHNICIAN
--- NOTE | ~2020-02-12 | XR_ITS ---
EXAMINATION: XR abdomen/kub 1V DATE: 02/12/2020 20:23 INDICATION: Dilated bowel loops. TECHNIQUE: A supine view of the abdomen on 2 radiographs was obtained. COMPARISON: CT abdomen and pelvis 04/15/2019, chest single view at 4:05 PM FINDINGS: Stool distends the rectum. The small bowel is normal in caliber. There is internal fixation of proximal right femur. There are patchy airspace opacities in the lungs bilaterally. IMPRESSION: 1. Stool distends the rectum. 2. Diffuse lung disease, consistent with pneumonia. Reviewed, dictated and finalized at location A. E REPAIRER
--- NOTE | ~2020-02-12 | XR_ITS ---
EXAMINATION: XR chest 1V portable EXAM DATE: 02/14/2020 06:20 INDICATION: COVID pneumonia. TECHNIQUE: Portable AP frontal chest x-ray was obtained. Comparison is made to prior examination from 02/12/2020. FINDINGS: Scattered small amount of bilateral infection and atelectasis, stable or with slight progre ssion. No pneumothorax or pleural effusion. Cardiomediastinal silhouette is normal. The bones are ost eopenic. There are bony degenerative changes. IMPRESSION: 1. Small scattered regions of infection and atelectasis. Reviewed, dictated and finalized at location A. STANT HVAC MECHANIC
--- NOTE | 2020-02-12 15:50 | ECG_ITS ---
Measurements Intervals [place] Rate: 77 P: 41 KS: 182 QRS: -7 QRSD: 101 T: 10 QT: 375 QTc: 425 Interpretive Statements SINUS RHYTHM LEFT ATRIAL ENLARGEMENT CANNOT RULE OUT SEPTAL INFARCT, AGE INDETERMINATE BORDERLINE T WAVE ABNORMALITY- INFERIOR LEADS BASELINE ARTIFACT- I, V5-V6 ABNORMAL ECG Electronically Signed On 02-12-2020 18:37:56 METAL LOADER by Geovani Tipton D.O.
[2020-02-12 16:38] LABS: Hematocrit 40.1 % (42.0-52.0); Hemoglobin 13.2 g/dL (14.0-18.0); Immature Platelet Fraction Pct 2.3 % (0.9-11.2); Mean Corpuscular HGB Conc 32.9 g/dl (32-36); Mean Corpuscular Hemoglobin 29.4 pg (26-34); Mean Corpuscular Volume 89.3 fl (80-100); Platelet Count Result 103 k/mm3 (150-375); Red Blood Count 4.49 M/mm3 (4.6-6.20); White Blood Count 39.3 K/mm3 (4.5-10.0)
[2020-02-12 16:46] LABS: Lactic Acid Reflex 0.7 mmol/L (0.7-2.1)
[2020-02-12 16:48] LABS: Anion Gap 9 mmol/L (8-16); Blood Urea Nitrogen 25 mg/dL (9-20); Calcium 8.9 mg/dL (8.4-10.2); Carbon Dioxide 27 mmol/L (22-30); Chloride 92 mmol/L (98-107); Estimated CRCL calculation 56 ml/min; Estimated Glomerular Filt Rate > 60; Glucose 123 mg/dL (75-110); Potassium 4.8 mmol/L (3.4-5.0); Sodium 128 mmol/L (137-145)
[2020-02-12 16:54] LABS: Lymphocytes Absolute Manual 37.33 K/mm3 (1.1-4.5); Lymphocytes Percent Manual 95 % (18-44); Monocytes Absolute Manual 0.39 K/mm3 (0.1-0.90); Monocytes Percent Manual 1 % (3-9); Neutrophils Percent Manual 4 % (46-73); Total Cells Counted 100
[2020-02-12 16:55] LABS: Atypical Lymphocytes Present; Platelet Estimate Decreased (Adequate); Smudge Cells FEW
[2020-02-12 17:04] LABS: Alveolar/Arterial O2 Gradient 59.1 mmHg; Base Excess ABG -0.6 mEq/l (+/-2.0); Carboxyhemoglobin 0.3 % THb (0-2.0); Device NASAL CANNULA; Fractional Inspired Oxygen 28 %; HCO3 ABG 22.6 mEq/l (22.0-26.0); Methemoglobin ABG 0.2 %THb (0-1.5); Oxygen Content ABG 17.6 %vol (16.0-22.0); Oxyhemoglobin 96.9 % THb (90.0-100.0); PCO2 ABG 32.8 mmHg (35.0-45.0); PO2 ABG 101.8 mmHg (80.0-100.0); PO2 FiO2 Ratio Arterial Blood 3.64 %; Reduced Hemoglobin 2.6 %THb (0-5.0); Site Drawn LEFT BRACHIAL; Total Hemoglobin 12.8 g/dL (12.0-18.0); pH ABG 7.456 (7.350-7.450)
--- NOTE | 2020-02-12 17:19 | ED.SOB ---
HPI - SOB/Dyspnea General Chief Complaint: Shortness of Breath/Dyspnea <Abigail Kolb PA-C - Last Filed: 02/12/20 19:22> Stated Complaint: COVID +, Fatigue, SOB <MELANIE Garcia Last Filed: 02/12/20 19:22> Time Seen by Provider: 02/12/20 16:55 <MELANIE Garcia Last Filed: 02/12/20 19:22> Source: patient <MELANIE Garcia Last Filed: 02/12/20 19:22> Mode of arrival: EMS <MELANIE Garcia Last Filed: 02/12/20 19:22> Limitations: no limitations <MELANIE Garcia Last Filed: 02/12/20 19:22> History of Present Illness HPI Narrative: This is a 79 year old male that presents to the ER via EMS from [facility] for shortness of breath. Reports cold symptoms x 2 days. Reports fever, cough, congestion, and rhinorrhea. Reports he tested positive for covid this morning. Reports dyspnea. Denies chest pain. <Abigail Kolb PA-C - Last Filed: 02/12/20 19:22> Related Data Home Medications: Home Medications Medication Instructions Recorded Confirmed cholecalciferol (vitamin D3) 10 10 mcg PO DAILY 10/18/19 10/18/19 mcg (400 unit) capsule omeprazole 40 mg capsule,delayed 40 mg PO DAILY 10/18/19 10/18/19 release pantoprazole 40 mg tablet,delayed 40 mg PO QAM 10/18/19 10/18/19 release folic acid 1 mg PO DAILY 02/12/20 02/12/20 nebivolol [Bystolic] 5 mg PO DAILY 02/12/20 <MELANIE Garcia Last Filed: 02/12/20 19:22> Allergies/Adverse Reactions: Allergies Allergy/AdvReac Type Severity Reaction Status Date / Time fentanyl Allergy Severe Loss of Verified 02/12/20 17:34 Consciousness hydrocodone Allergy Severe Loss of Verified 02/12/20 17:34 Consciousness oxycodone Allergy Severe Loss of Verified 02/12/20 17:34 Consciousness SILKSUTURES Allergy Severe REDNESS Uncoded 10/18/19 11:20 <Abigail Kolb PA-C - Last Filed: 02/12/20 19:22> Review of Systems Review of Systems: Narrative: CONSTITUTIONAL: Reports fever ENT: Reports rhinorrhea, congestion CARDIOVASCULAR: Denies chest pain or edema. RESPIRATORY: Reports cough and dyspnea. GASTROINTESTINAL: Denies abdominal pain, nausea, vomiting GENITOURINARY: Denies dysuria <Abigail Kolb PA-C - Last Filed: 02/12/20 19:22> All systems reviewed & are unremarkable except as noted in HPI and below <Abigail Kolb PA-C - Last Filed: 02/12/20 19:22> [facility] Past Medical History Medical History: Medical History (Updated 02/12/20 @ 19:18 by Abigail Kolb PA-C) AK (actinic keratosis) 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 Cataracts, bilateral Cholecystitis Chronic bilateral low back pain without sciatica Chronic diastolic (congestive) heart failure Chronic kidney disease, stage 3 (moderate) Chronic leukemia of unspecified cell type not having achieved remission CLL (chronic lymphocytic leukemia) (Unknown) Closed fracture of one rib of right side Closed fracture of trochanter of right femur Combined arterial insufficiency and corporo-venous occlusive erectile dysfunction CVA (cerebral vascular accident) Dizziness Dysfunction of right rotator cuff Esophageal dysphagia Essential (primary) hypertension External hemorrhoids Gastroesophageal reflux disease (Unknown) Granuloma of subcutaneous tissue History of angina History of GI bleed History of SCC (squamous cell carcinoma) of skin Hx of migraines 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
[2020-02-12 17:25] LABS: Lactate Dehydrogenase 532 U/L (313-618)
[2020-02-12] MEDS: DEXAMETHASONE SOD PHOS INJ 4 MG/ML VIAL 6 MG IV PUSH (17:32)
[2020-02-12] MEDS: SODIUM CHLORIDE 0.9% IV 500 ML 999 ML IV CONT (17:32)
[2020-02-12 17:35] LABS: NT Pro B Type Natriuretic Pept 1010 PG/ML (5-100)
[2020-02-12 17:36] LABS: Alanine Aminotransferase 20 U/L (4-50); Alkaline Phosphatase 99 U/L (38-126); Aspartate Amino Transferase 46 U/L (17-59); Bilirubin,Total 0.7 mg/dL (0.2-1.3); CRP 6.8 mg/dL (<1.0)
--- NOTE | 2020-02-12 19:35 | ADMGEN ---
This patient, Jordon Guillermo, was admitted to 3 [facility] Surg Room 333-01. Patient/family oriented to hospital policies and general routines including ID bracelet, bed and alarms, visiting hours, pain management, procedures, bathroom and other care routines, personal items, smoking policy, room service/diet, and visiting hours. Information on how to activate the Rapid Response Team has been discussed. Patient/Family are encouraged to report perceived risks to care and to ask questions if they do not understand what they are told or what they should do.
--- NOTE | 2020-02-12 19:58 | PM.IMHP ---
H&P: HPI History of Present Illness Date/Time: 02/12/20 19:58 Chief complaint: Coronavirus pneumonia, Narrative: Jordon Guillermo is a 79 year old male with PMHx significant for Borrero's esophagus, Chronic back pain, Chronic Diastolic Heart failure, CKD, CLL, R hip fx,HTN. Patient had been undergoing rehabilitation s/p hip fx, was living at assisted living facility where there has been a break out of Covid 19 and he was placed on quarentine ([facility]). He has not been feeling well for the last couple of days very tired and fatigue, decreased appetite, today he could not get up from bed due to weakness has had subjective fevers as well, decided that he would stay in bed and skip breakfast. He was brought via ambulance to the hospital.He was saturating in the 80's in the ED. Today he tested positive for Covid. Preliminary work up is significant for mild hyponatremia and leukocytosis. He tested negative for Influenza A&B as well as for Covid 19 PCR earlier this month. Chest xr with infiltrates. Review of Systems Review of Systems: Narrative: Feeling very weak, subjective fevers Constitutional: Comments: generalized weakness, fevers. Eyes: Comments: no vision changes. ENT: Comments: clear nasal discharge and congestion, no throat pain, no ear ache. Cardiovascular: Comments: no leg swelling, no pnd, no orthopnea. Respiratory: Comments: cough and congestion. Gastrointestinal: Comments: no n/v/abdominal pain, decreased appetite. Musculoskeletal: Comments: generalized weakness. Integumentary/Breasts: Comments: no rashes. Neurologic: Comments: no sensory motor deficit. Hematologic/Lymphatic: Comments: no LAP PMFSH Past Medical History Medical History (Updated 02/12/20 @ 21:14 by Yaquelin Bill MD) AK (actinic keratosis) 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 Cataracts, bilateral Cholecystitis Chronic bilateral low back pain without sciatica Chronic diastolic (congestive) heart failure Chronic kidney disease, stage 3 (moderate) Chronic leukemia of unspecified cell type not having achieved remission CLL (chronic lymphocytic leukemia) (Unknown) Closed fracture of one rib of right side Closed fracture of trochanter of right femur Combined arterial insufficiency and corporo-venous occlusive erectile dysfunction CVA (cerebral vascular accident) Dizziness Dysfunction of right rotator cuff Esophageal dysphagia Essential (primary) hypertension External hemorrhoids Gastroesophageal reflux disease (Unknown) Granuloma of subcutaneous tissue History of angina History of GI bleed History of SCC (squamous cell carcinoma) of skin Hx of migraines 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outine healing Other chronic pain Primary osteoarthritis of both shoulders Right medial knee pain Shingles Slow transit constipation Spinal fracture Splenomegaly Ulcer Surgical History Surgical History History of chest tube placement History of hand surgery History of hip surgery History of inguinal hernia repair ADOLFO. History of ligation of vein History of spinal surgery Multiple. Hx of bilateral cataract extraction Hx of cardiac cath Hx of shoulder surgery Hx of tracheostomy Family History Family History (R
[2020-02-12 20:27] LABS: Lactate Dehydrogenase 523 U/L (313-618)
[2020-02-12] MEDS: REMDESIVIR 200 MG/NS 250 ML 200 MG/250 ML BAG 250 MG IVPB (21:42)
[2020-02-13] VITALS (12 sets, daily range): BP systolic 100–128; BP diastolic 56–68; PULSE 56–76; RESP 18–20; TEMP 36.4–36.9; O2SAT 90–96
[2020-02-13] MEDS: BELLADONNA ALK/PHENOB ELIX 10 ML, MAG HYDROX/ALUMINUM HYD/SIMETH 30 ML, LIDOCAINE HCL 2... PO (00:43)
[2020-02-13] MEDS: ALBUTEROL SULFATE (*SP) AEROSOL 1 PUFF INHALATION ×2 (03:30→11:48)
[2020-02-13] MEDS: FAMOTIDINE 20 MG/2 ML VIAL IV PUSH (03:31)
[2020-02-13 07:19] LABS: Alanine Aminotransferase 38 U/L (4-50)
[2020-02-13] MEDS: CHOLECALCIFEROL 400 UNITS TABLET (VIT D) PO (09:05)
[2020-02-13] MEDS: FLUTICASONE PROPIONATE 0.05% NA SPR 16 GM BTL (*BKC) 1 SPRAY NASAL ×2 (09:06→16:33)
[2020-02-13] MEDS: DEXAMETHASONE SOD PHOS INJ 4 MG/ML VIAL 6 MG IV PUSH (09:06)
[2020-02-13] MEDS: FOLIC ACID 1 MG TABLET PO (09:07)
[2020-02-13] MEDS: LOSARTAN POTASSIUM 25 MG TABLET 75 MG PO (09:07)
[2020-02-13] MEDS: MONTELUKAST SODIUM 10 MG TABLET PO (09:08)
[2020-02-13] MEDS: OLOPATADINE 0.1% OPHTH SOLN 5 ML BTL 1 DROP EACH EYE ×2 (09:09→16:33)
[2020-02-13] MEDS: PANTOPRAZOLE 40 MG TABLET PO (09:09)
[2020-02-13] MEDS: NEBIVOLOL HCL 5 MG TABLET PO (09:09)
[2020-02-13 10:23] LABS: Add Urine Microscopic? YES; Appearance Urine Clear (Clear); Bacteria Urine Trace /hpf; Bilirubin Urine Negative (Negative); Blood Urine Negative (Negative); Color Urine Yellow (Yellow); Glucose Urine UA 1+ mg/dL (Negative); Ketones Urine Negative (Negative); Leukocyte Esterase Ur Negative LEU/UL (NEGATIVE); Mucus Urine Few /lpf; Nitrate Urine Negative (Negative); Protein Urine 2+ mg/dL (Negative); RBC Urine 0-2 /hpf (0-2); Squamous Epithelial Cell Urine Rare /hpf (Few); Urobilinogen Urine Negative mg/dL (<2.0); WBC Urine 0-3 /hpf (0-3)
[2020-02-13 10:25] LABS: Specific Grav Ur 1.032 (1.001-1.035)
--- NOTE | 2020-02-13 14:50 | PM.IMPN ---
Progress Note: A&P Assessment and Plan (1) Pneumonia due to 2019 novel coronavirus: Code(s): U07.1 - COVID-19; J12.89 - Other viral pneumonia Status: Acute Assessment and Plan: Admit to Med Surg Out of bed for meals PT and OT titrate oxygen as needed Vitals as per unit protocol Started on Remdesivir and Dexamethasone started on Lovenox and Mucinex and DuoNeb treatments Added Cefepime as patient has been living in assisted living facility and was at rehabilitation prior to this and hospitalization for hip fx. montioring cultures results (2) Acute respiratory failure due to COVID-19: Code(s): U07.1 - COVID-19; J96.00 - Acute respiratory failure, unspecified whether with hypoxia or hypercapnia Status: Acute Assessment and Plan: On supplemental O2 Continuous pulse ox. nebulizer txs monitor lab trends of Ferritin/ CRP/ LDH serial CXRs every other day. 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 BP 117/61 with HR 68 (6) CLL (chronic lymphocytic leukemia): Onset Date: Unknown Code(s): C91.10 - Chronic lymphocytic leukemia of B-cell type not having achieved remission Status: Acute Assessment and Plan: Leukocytosis present. sputum and urine cultures ordered. WBC 39.3 which is fairly normal for patient when his CBC history of reviewed in medical record. Chronic no fevers noted Continue to monitor (7) Gastroesophageal reflux disease: Onset Date: Unknown Qualifiers: Esophagitis presence: without esophagitis Qualified Code(s): K21.9 - Gastro-esophageal reflux disease without esophagitis Code(s): K21.9 - Gastro-esophageal reflux disease without esophagitis Status: Acute Assessment and Plan: On PPI No reds in diet no complaints of GERD or epigastric pain or belching/burping. Subjective Date/time seen: 02/13/20 14:50 [place] is feeling slightly better today. That he has long way to go. 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 He stated that he had recently suffered a right hip fracture and was recovering with PT and OT when he had to be discharged early from the senior care care facility due to COVID. Continued on Cefepime. When he was evaluated for his home health PT and OT they said that he had relapsed quite a bit in his strength. I have ordered PT and OT evaluations for tomorrow. He is currently saturating 96% on 3 L nasal cannula, able to carry on a conversation while resting in bed, and has a cough with deep breathing. ALT and LDH wnl, CRP 6.8, BNP 1010, Ferritin elevated at 636. He has not gotten out of bed yet. I have instructed the patient to use his incentive spirometer and to trying get up for meals. Blood cultures showed preliminary no growth. Currently on Remdesivir and Dexamethasone. Review of Systems Review of Systems: All systems reviewed & are unremarkable except as noted in HPI and below Constitutional: Constitutional: Reports as per HPI, Denies excessive sweating, Reports fatigue, Denies headache(s), Denies increased appetite, Reports lethargy, Reports malaise, Denies snoring and Denies weight gain Eyes: Eyes: Denies exophthalmos, Denies diplopia, Denies floaters and Denies
[2020-02-13] MEDS: IPRATROPIUM BR 0.02% INH SOLN 0.5 MG/2.5 ML VIAL INHALATION (18:09)
[2020-02-13] MEDS: ALBUTEROL SULFATE NEB 2.5 MG/0.5 ML INH INHALATION (18:09)
[2020-02-13] MEDS: REMDESIVIR 100 MG/NS 250 ML 100 MG/250 ML BAG 250 MG IVPB (20:20)
[2020-02-13] MEDS: guaiFENesin 12 HR 600 MG TABCR PO (20:21)
[2020-02-14] VITALS (16 sets, daily range): BP systolic 91–122; BP diastolic 52–70; PULSE 60–95; RESP 18–22; TEMP 36.5–36.8; O2SAT 78–98
[2020-02-14] MEDS: ALBUTEROL SULFATE NEB 2.5 MG/0.5 ML INH INHALATION ×3 (04:51→15:03)
[2020-02-14] MEDS: IPRATROPIUM BR 0.02% INH SOLN 0.5 MG/2.5 ML VIAL INHALATION ×3 (04:52→15:04)
[2020-02-14 06:54] LABS: Hematocrit 35.4 % (42.0-52.0); Hemoglobin 11.5 g/dL (14.0-18.0); Mean Corpuscular HGB Conc 32.5 g/dl (32-36); Mean Corpuscular Hemoglobin 29.3 pg (26-34); Mean Corpuscular Volume 90.3 fl (80-100); Mean Platelet Volume 9.3 fl (7.4-10.4); Platelet Count Result 102 k/mm3 (150-375); Red Blood Count 3.92 M/mm3 (4.6-6.20); Red Cell Distribution Width 13.8 % (11.5-14.5)
[2020-02-14 08:01] LABS: Alanine Aminotransferase 34 U/L (4-50); Albumin Level 3.1 g/dL (3.5-5.1); Alkaline Phosphatase 97 U/L (38-126); Anion Gap 5 mmol/L (8-16); Aspartate Amino Transferase 51 U/L (17-59); Bilirubin,Total 0.4 mg/dL (0.2-1.3); Blood Urea Nitrogen 41 mg/dL (9-20); CRP 4.3 mg/dL (<1.0); Calcium 8.4 mg/dL (8.4-10.2); Carbon Dioxide 28 mmol/L (22-30); Chloride 95 mmol/L (98-107); Estimated CRCL calculation 52 ml/min; Estimated Glomerular Filt Rate > 60; Glucose 135 mg/dL (75-110); Lactate Dehydrogenase 422 U/L (313-618); Potassium 4.3 mmol/L (3.4-5.0); Sodium 128 mmol/L (137-145)
[2020-02-14] MEDS: CHOLECALCIFEROL 400 UNITS TABLET (VIT D) PO (12:59)
[2020-02-14] MEDS: FOLIC ACID 1 MG TABLET PO (13:00)
[2020-02-14] MEDS: FLUTICASONE PROPIONATE 0.05% NA SPR 16 GM BTL (*BKC) 1 SPRAY NASAL ×2 (13:00→18:15)
[2020-02-14] MEDS: DEXAMETHASONE SOD PHOS INJ 4 MG/ML VIAL 6 MG IV PUSH (13:00)
[2020-02-14] MEDS: ENOXAPARIN 40 MG/0.4 ML SYRINGE SUB-Q (13:00)
[2020-02-14] MEDS: NEBIVOLOL HCL 5 MG TABLET PO (13:01)
[2020-02-14] MEDS: LOSARTAN POTASSIUM 25 MG TABLET 75 MG PO (13:01)
[2020-02-14] MEDS: OLOPATADINE 0.1% OPHTH SOLN 5 ML BTL 1 DROP EACH EYE ×2 (13:01→18:16)
[2020-02-14] MEDS: guaiFENesin 12 HR 600 MG TABCR PO ×2 (13:01→22:13)
[2020-02-14] MEDS: MONTELUKAST SODIUM 10 MG TABLET PO (13:01)
[2020-02-14] MEDS: PANTOPRAZOLE 40 MG TABLET PO (13:02)
--- NOTE | 2020-02-14 17:36 | PM.IMPN ---
Progress Note: A&P Assessment and Plan (1) Pneumonia due to 2019 novel coronavirus: Code(s): U07.1 - COVID-19; J12.89 - Other viral pneumonia Status: Acute Assessment and Plan: Patient tested positive on 02/11 per patient. CXR suggestive of pneumonia. Started on Remdesivir and Dexamethasone on 02/11. Patient reports feeling somewhat better. On 4 L O2 today. BCx NGTD. Sputum culture pending Continue Remdesivir (05/18) continue Decadron (day 3) Continue supportive care with nebs if applicable on med/surg floor, mucinex, tylenol, IS Patient refusing Lovenox given history of GI bleed earlier this year; no evidence of bleeding. will do SCDs if he continues to refuse PT/OT Wean O2 as tolerated Monitor will hold on cefepime as bacterial pneumonia felt to be less likely, but will continue to monitor and consider resuming if worsening respiratory status. Recent SNF stay and recent hospitalization noted (2) Acute respiratory failure due to COVID-19: Code(s): U07.1 - COVID-19; J96.00 - Acute respiratory failure, unspecified whether with hypoxia or hypercapnia Status: Acute Assessment and Plan: Likely secondary to COVID pneumonia. On supplemental 4L O2 currently Continuous pulse ox. Wean O2 as tolerated Continue treatment as above (3) Hyponatremia: Code(s): E87.1 - Hypo-osmolality and hyponatremia Status: Acute Assessment and Plan: Chronic. 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 Na 128 today. Continue to monitor Strict I/O's (4) Duodenal ulcer: Code(s): K26.9 - Duodenal ulcer, unspecified as acute or chronic, without hemorrhage or perforation Status: Acute Assessment and Plan: Stable on PPI. No evidence of bleeding Continue PPI (5) Chronic diastolic (congestive) heart failure: Code(s): I50.32 - Chronic diastolic (congestive) heart failure Status: Acute Assessment and Plan: Appears to be euvolemic. BP a bit soft and losartan held Continue Nebivolol for now Resume Losartan when appropriate. (6) CLL (chronic lymphocytic leukemia): Onset Date: Unknown Code(s): C91.10 - Chronic lymphocytic leukemia of B-cell type not having achieved remission Status: Acute Assessment and Plan: Leukocytosis present which appears to be stable upon review of labs. Afebrile since presentation on 02/11 Monitor daily Consider Oncology consultation for further input (7) Gastroesophageal reflux disease: Onset Date: Unknown Qualifiers: Esophagitis presence: without esophagitis Qualified Code(s): K21.9 - Gastro-esophageal reflux disease without esophagitis Code(s): K21.9 - Gastro-esophageal reflux disease without esophagitis Status: Acute Assessment and Plan: On PPI. No complaints Continue home therapy Subjective Date/time seen: 02/14/20 17:36 Interval history: Patient is a 79 yo M with history of Borrero's esophagus, Chronic back pain, Chronic Diastolic Heart failure, CKD, CLL, R femur fx, and HTN who is seen in follow up for COVID pneumonia and acute respiratory failure with hypoxia likely due to same. Patient states he feels somewhat better today but still having a dry cough, which he thinks is a bit worse since yesterday. His SOB has improved, however. He notes chronic left knee pain from his distal femur fracture and repair back in 10/2019. No other complaints at them moment. Denies f/c/s, headaches, dizziness, lightheadedness, cp/palpitations, n/v/d/c, abd pain, changes in BMs, dysuria, hematuria, cloudy urine, calf pain/swelling. RN reports patient is refusing his Lovenox given a massive GI bleed earlier this year. Review of Systems Review o
[2020-02-14] MEDS: REMDESIVIR 100 MG/NS 250 ML 100 MG/250 ML BAG 250 MG IVPB (22:13)
[2020-02-14] MEDS: ACETAMINOPHEN 325 MG TABLET 650 MG PO (22:13)
[2020-02-15] VITALS (12 sets, daily range): BP systolic 104–130; BP diastolic 61–65; PULSE 64–74; RESP 18–20; TEMP 36.4–37; O2SAT 95–97
[2020-02-15] MEDS: IPRATROPIUM BR 0.02% INH SOLN 0.5 MG/2.5 ML VIAL INHALATION ×3 (03:43→21:34)
[2020-02-15] MEDS: ALBUTEROL SULFATE NEB 2.5 MG/0.5 ML INH INHALATION ×3 (03:43→21:33)
[2020-02-15 06:56] LABS: Basophils Absolute Auto 0.1 K/mm3 (0.0-0.1); Basophils Percent Auto 0.2 % (0.2-1.2); Hematocrit 36.5 % (42.0-52.0); Hemoglobin 11.8 g/dL (14.0-18.0); Immature Granulocyte Percent A 0.2 % (0-0.5); Immature Platelet Fraction Pct 2.7 % (0.9-11.2); Lymphocytes Absolute Auto 37.91 K/mm3 (0.9-3.2); Lymphocytes Percent Auto 88.5 % (18.3-44.2); Mean Corpuscular HGB Conc 32.3 g/dl (32-36); Mean Corpuscular Hemoglobin 29.2 pg (26-34); Mean Corpuscular Volume 90.3 fl (80-100); Mean Platelet Volume 9.6 fl (7.4-10.4); Monocytes Absolute Auto 0.5 K/mm3 (0.1-0.6); Monocytes Percent Auto 1.1 % (2.6-8.5); Neutrophils Absolute Auto 4.3 K/mm3 (1.3-6.7); Platelet Count Result 123 k/mm3 (150-375); Red Blood Count 4.04 M/mm3 (4.6-6.20); Red Cell Distribution Width 13.8 % (11.5-14.5); White Blood Count 42.8 K/mm3 (4.5-10.0)
[2020-02-15 07:13] LABS: Alanine Aminotransferase 41 U/L (4-50); Albumin Level 3.1 g/dL (3.5-5.1); Alkaline Phosphatase 91 U/L (38-126); Anion Gap 5 mmol/L (8-16); Aspartate Amino Transferase 49 U/L (17-59); Bilirubin,Total 0.5 mg/dL (0.2-1.3); Blood Urea Nitrogen 46 mg/dL (9-20); Calcium 8.6 mg/dL (8.4-10.2); Carbon Dioxide 31 mmol/L (22-30); Chloride 94 mmol/L (98-107); Estimated CRCL calculation 58 ml/min; Estimated Glomerular Filt Rate > 60; Glucose 119 mg/dL (75-110); Magnesium 2.1 mg/dL (1.6-2.3); Sodium 130 mmol/L (137-145)
[2020-02-15 09:03] LABS: Platelet Estimate Adequate (Adequate)
[2020-02-15 09:04] LABS: Atypical Lymphocytes Present
[2020-02-15] MEDS: OLOPATADINE 0.1% OPHTH SOLN 5 ML BTL 1 DROP EACH EYE ×2 (09:09→17:08)
[2020-02-15] MEDS: FOLIC ACID 1 MG TABLET PO (09:09)
[2020-02-15] MEDS: FLUTICASONE PROPIONATE 0.05% NA SPR 16 GM BTL (*BKC) 1 SPRAY NASAL ×2 (09:09→17:08)
[2020-02-15] MEDS: MONTELUKAST SODIUM 10 MG TABLET PO (09:09)
[2020-02-15] MEDS: PANTOPRAZOLE 40 MG TABLET PO (09:09)
[2020-02-15] MEDS: guaiFENesin 12 HR 600 MG TABCR PO ×2 (09:09→21:18)
[2020-02-15] MEDS: DEXAMETHASONE SOD PHOS INJ 4 MG/ML VIAL 6 MG IV PUSH (09:10)
[2020-02-15] MEDS: CHOLECALCIFEROL 400 UNITS TABLET (VIT D) PO (09:10)
[2020-02-15] MEDS: NEBIVOLOL HCL 5 MG TABLET PO (09:10)
--- NOTE | 2020-02-15 10:49 | PCRCNOTE ---
Window of time for administration has passed. See next scheduled administration.
--- NOTE | 2020-02-15 15:41 | PM.IMPN ---
Progress Note: A&P Assessment and Plan (1) Pneumonia due to 2019 novel coronavirus: Code(s): U07.1 - COVID-19; J12.89 - Other viral pneumonia Status: Acute Assessment and Plan: Patient tested positive on 02/11 per patient. CXR suggestive of pneumonia. Started on Remdesivir and Dexamethasone on 02/11. Patient reports feeling today. CLinically looks better today but still requiring 4 L O2 today. BCx NGTD. Sputum culture pending Continue Remdesivir (06/18) continue Decadron (day 4) Continue supportive care with nebs if applicable on med/surg floor, mucinex, tylenol, IS Patient refusing Lovenox given history of GI bleed earlier this year; no evidence of bleeding. will do SCDs if he continues to refuse PT/OT Wean O2 as tolerated Monitor will hold on cefepime as bacterial pneumonia felt to be less likely, but will continue to monitor and consider resuming if worsening respiratory status. Recent SNF stay and recent hospitalization noted (2) Acute respiratory failure due to COVID-19: Code(s): U07.1 - COVID-19; J96.00 - Acute respiratory failure, unspecified whether with hypoxia or hypercapnia Status: Acute Assessment and Plan: Likely secondary to COVID pneumonia. On supplemental 4L O2 currently Continuous pulse ox. Wean O2 as tolerated Continue treatment as above (3) Hyponatremia: Code(s): E87.1 - Hypo-osmolality and hyponatremia Status: Acute Assessment and Plan: Chronic. 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 Na 130 today. Continue to monitor Strict I/O's (4) Duodenal ulcer: Code(s): K26.9 - Duodenal ulcer, unspecified as acute or chronic, without hemorrhage or perforation Status: Acute Assessment and Plan: Stable on PPI. No evidence of bleeding Continue PPI (5) Chronic diastolic (congestive) heart failure: Code(s): I50.32 - Chronic diastolic (congestive) heart failure Status: Acute Assessment and Plan: Appears to be euvolemic. BP a bit soft the past couple of days and losartan held Continue Nebivolol for now Resume Losartan when appropriate. (6) CLL (chronic lymphocytic leukemia): Onset Date: Unknown Code(s): C91.10 - Chronic lymphocytic leukemia of B-cell type not having achieved remission Status: Acute Assessment and Plan: Leukocytosis present which appears to be stable upon review of labs. Afebrile since presentation on 02/11 Monitor daily Consider Oncology consultation for further input (7) Gastroesophageal reflux disease: Onset Date: Unknown Qualifiers: Esophagitis presence: without esophagitis Qualified Code(s): K21.9 - Gastro-esophageal reflux disease without esophagitis Code(s): K21.9 - Gastro-esophageal reflux disease without esophagitis Status: Acute Assessment and Plan: On PPI. No complaints Continue home therapy Subjective Date/time seen: 02/15/20 15:41 Interval history: Patient is a 79 yo M with history of Borrero's esophagus, Chronic back pain, Chronic Diastolic Heart failure, CKD, CLL, R femur fx, and HTN who is seen in follow up for COVID pneumonia and acute respiratory failure with hypoxia likely due to same. Patient states he feels much better today but still having a dry cough, although notes that it was somewhat productive today which was a relief to him. His SOB has improved again today. He notes chronic left knee pain has been better today. No other complaints at the moment. Denies f/c/s, headaches, dizziness, lightheadedness, cp/palpitations, n/v/d/c, abd pain, changes in BMs, dysuria, hematuria, cloudy urine, calf pain/swelling. Review of Systems Review of Systems: All systems revi
[2020-02-15] MEDS: ACETAMINOPHEN 325 MG TABLET 650 MG PO (18:27)
[2020-02-15] MEDS: guaiFENesin/DEXTROMETHORPHAN 10 ML UDC 5 ML PO (21:17)
[2020-02-15] MEDS: REMDESIVIR 100 MG/NS 250 ML 100 MG/250 ML BAG 250 MG IVPB (21:18)
[2020-02-16] VITALS (18 sets, daily range): BP systolic 94–142; BP diastolic 54–68; PULSE 65–94; RESP 18–20; TEMP 36.4–37; O2SAT 91–95
[2020-02-16] MEDS: ALBUTEROL SULFATE NEB 2.5 MG/0.5 ML INH INHALATION ×4 (03:47→21:21)
[2020-02-16] MEDS: IPRATROPIUM BR 0.02% INH SOLN 0.5 MG/2.5 ML VIAL INHALATION ×4 (03:48→21:21)
--- NOTE | 2020-02-16 04:07 | PC.NURSE ---
Pt RFA IV infiltrated when attempting to flush and intitiate remdesevir. Started pt IV in RFA lateral with 22 gauge. Pt tolerated well, blood return at placement. Initiated remdesivir. Pt called out stating his IV was hurting to nurses station. RN notified. RN in another pt room. Pt called out again. RN into pt room. Pt IV infiltrated and large swelling noted at IV site. IV removed intact, warm blanket applied. Another nurse initiated IV in LFA; pt tolerated well. IV infusion completed.
[2020-02-16 06:46] LABS: Basophils Absolute Auto 0.1 K/mm3 (0.0-0.1); Basophils Percent Auto 0.1 % (0.2-1.2); Hematocrit 36.4 % (42.0-52.0); Hemoglobin 11.8 g/dL (14.0-18.0); Immature Granulocyte Absolute 0.07 K/mm3 (0.00-0.031); Immature Granulocyte Percent A 0.2 % (0-0.5); Lymphocytes Absolute Auto 29.73 K/mm3 (0.9-3.2); Lymphocytes Percent Auto 88.7 % (18.3-44.2); Mean Corpuscular HGB Conc 32.4 g/dl (32-36); Mean Corpuscular Hemoglobin 29.6 pg (26-34); Mean Corpuscular Volume 91.2 fl (80-100); Mean Platelet Volume 9.4 fl (7.4-10.4); Monocytes Absolute Auto 0.3 K/mm3 (0.1-0.6); Neutrophils Absolute Auto 3.3 K/mm3 (1.3-6.7); Platelet Count Result 97 k/mm3 (150-375); Red Blood Count 3.99 M/mm3 (4.6-6.20); White Blood Count 33.5 K/mm3 (4.5-10.0)
[2020-02-16 07:09] LABS: Alanine Aminotransferase 41 U/L (4-50); Albumin Level 2.9 g/dL (3.5-5.1); Alkaline Phosphatase 85 U/L (38-126); Anion Gap 4 mmol/L (8-16); Aspartate Amino Transferase 44 U/L (17-59); Bilirubin,Total 0.5 mg/dL (0.2-1.3); Blood Urea Nitrogen 43 mg/dL (9-20); CRP 4.7 mg/dL (<1.0); Calcium 8.5 mg/dL (8.4-10.2); Carbon Dioxide 32 mmol/L (22-30); Chloride 95 mmol/L (98-107); Estimated CRCL calculation 58 ml/min; Estimated Glomerular Filt Rate > 60; Glucose 101 mg/dL (75-110); Lactate Dehydrogenase 398 U/L (313-618); Potassium 4.9 mmol/L (3.4-5.0); Sodium 131 mmol/L (137-145)
[2020-02-16 07:27] LABS: Atypical Lymphocytes Present; Burr Cells 1+ (NORMAL); Platelet Estimate Adequate (Adequate)
[2020-02-16] MEDS: NEBIVOLOL HCL 5 MG TABLET PO (09:51)
[2020-02-16] MEDS: guaiFENesin 12 HR 600 MG TABCR PO ×2 (09:51→20:57)
[2020-02-16] MEDS: PANTOPRAZOLE 40 MG TABLET PO (09:51)
[2020-02-16] MEDS: FOLIC ACID 1 MG TABLET PO (09:51)
[2020-02-16] MEDS: CHOLECALCIFEROL 400 UNITS TABLET (VIT D) PO (09:51)
[2020-02-16] MEDS: MONTELUKAST SODIUM 10 MG TABLET PO (09:51)
[2020-02-16] MEDS: DEXAMETHASONE SOD PHOS INJ 4 MG/ML VIAL 6 MG IV PUSH (09:52)
[2020-02-16] MEDS: FLUTICASONE PROPIONATE 0.05% NA SPR 16 GM BTL (*BKC) 1 SPRAY NASAL ×2 (09:52→16:38)
[2020-02-16] MEDS: OLOPATADINE 0.1% OPHTH SOLN 5 ML BTL 1 DROP EACH EYE ×2 (09:53→16:38)
--- NOTE | 2020-02-16 13:17 | PM.IMPN ---
Progress Note: A&P Assessment and Plan (1) Pneumonia due to 2019 novel coronavirus: Code(s): U07.1 - COVID-19; J12.89 - Other viral pneumonia Status: Acute Assessment and Plan: Patient tested positive on 02/11 per patient. CXR suggestive of pneumonia. Started on Remdesivir and Dexamethasone on 02/11. Patient reports feeling today. CLinically looks better today but still requiring 4 L O2 today. BCx NGTD. Sputum culture showing growth of normal oropharyngeal barndie Continue Remdesivir (07/18) continue Decadron (day 5) Continue supportive care with nebs if applicable on med/surg floor, mucinex scheduled and Robitussin prn, tylenol, IS Patient refusing Lovenox given history of GI bleed earlier this year; no evidence of bleeding. will do SCDs if he continues to refuse PT/OT Wean O2 as tolerated Monitor will hold on cefepime as bacterial pneumonia felt to be less likely, but will continue to monitor and consider resuming if worsening respiratory status. Recent SNF stay and recent hospitalization noted (2) Acute respiratory failure due to COVID-19: Code(s): U07.1 - COVID-19; J96.00 - Acute respiratory failure, unspecified whether with hypoxia or hypercapnia Status: Acute Assessment and Plan: Likely secondary to COVID pneumonia. On supplemental 3L O2 currently Wean O2 as tolerated Continue treatment as above (3) Hyponatremia: Code(s): E87.1 - Hypo-osmolality and hyponatremia Status: Acute Assessment and Plan: Chronic. 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 Na 131 today. Continue to monitor Strict I/O's (4) Duodenal ulcer: Code(s): K26.9 - Duodenal ulcer, unspecified as acute or chronic, without hemorrhage or perforation Status: Acute Assessment and Plan: Stable on PPI. No evidence of bleeding Continue PPI (5) Chronic diastolic (congestive) heart failure: Code(s): I50.32 - Chronic diastolic (congestive) heart failure Status: Acute Assessment and Plan: Appears to be euvolemic. BP a bit soft the past couple of days and losartan held Continue Nebivolol for now Resume Losartan when appropriate. (6) CLL (chronic lymphocytic leukemia): Onset Date: Unknown Code(s): C91.10 - Chronic lymphocytic leukemia of B-cell type not having achieved remission Status: Acute Assessment and Plan: Leukocytosis present which appears to be stable upon review of labs. Afebrile since presentation on 02/11 Monitor daily Consider Oncology consultation for further input (7) Gastroesophageal reflux disease: Onset Date: Unknown Qualifiers: Esophagitis presence: without esophagitis Qualified Code(s): K21.9 - Gastro-esophageal reflux disease without esophagitis Code(s): K21.9 - Gastro-esophageal reflux disease without esophagitis Status: Acute Assessment and Plan: On PPI. No complaints Continue home therapy Subjective Date/time seen: 02/16/20 13:17 Interval history: Patient is a 79 yo M with history of Borrero's esophagus, Chronic back pain, Chronic Diastolic Heart failure, CKD, CLL, R femur fx, and HTN who is seen in follow up for COVID pneumonia and acute respiratory failure with hypoxia likely due to same. Patient states he feels not so good today with his main complaint being weak and that he still has his cough; only occasionally productive. Has some chest pain with the cough as well. SOB seems to have improved overnight, somewhat. Notes his nose is a bit dry today. No other complaints. Denies f/c/s, headaches, dizziness, lightheadedness, palpitations, n/v/d/c, abd pain, changes in BMs, dysuria, hematuria, cloudy urine, calf pain/swelling. Revie
[2020-02-16] MEDS: REMDESIVIR 100 MG/NS 250 ML 100 MG/250 ML BAG 250 MG IVPB (20:56)
[2020-02-16] MEDS: guaiFENesin/DEXTROMETHORPHAN 10 ML UDC 5 ML PO (20:57)
[2020-02-17] VITALS (22 sets, daily range): BP systolic 104–134; BP diastolic 59–75; PULSE 70–83; RESP 18–20; TEMP 36.2–37.1; O2SAT 85–98
[2020-02-17] MEDS: IPRATROPIUM BR 0.02% INH SOLN 0.5 MG/2.5 ML VIAL INHALATION ×3 (01:55→14:10)
[2020-02-17] MEDS: ALBUTEROL SULFATE NEB 2.5 MG/0.5 ML INH INHALATION ×3 (01:55→14:11)
[2020-02-17 06:40] LABS: Basophils Absolute Auto 0.1 K/mm3 (0.0-0.1); Basophils Percent Auto 0.2 % (0.2-1.2); Hematocrit 33.7 % (42.0-52.0); Hemoglobin 11.1 g/dL (14.0-18.0); Immature Granulocyte Absolute 0.08 K/mm3 (0.00-0.031); Immature Granulocyte Percent A 0.2 % (0-0.5); Lymphocytes Absolute Auto 39.26 K/mm3 (0.9-3.2); Lymphocytes Percent Auto 90.5 % (18.3-44.2); Mean Corpuscular HGB Conc 32.9 g/dl (32-36); Mean Corpuscular Hemoglobin 29.1 pg (26-34); Mean Corpuscular Volume 88.5 fl (80-100); Monocytes Absolute Auto 0.3 K/mm3 (0.1-0.6); Monocytes Percent Auto 0.6 % (2.6-8.5); Neutrophils Absolute Auto 3.7 K/mm3 (1.3-6.7); Neutrophils Percent Auto 8.5 % (45.5-73.1); Platelet Count Result 117 k/mm3 (150-375); Red Blood Count 3.81 M/mm3 (4.6-6.20); Red Cell Distribution Width 13.8 % (11.5-14.5); White Blood Count 43.4 K/mm3 (4.5-10.0)
[2020-02-17 06:54] LABS: Alanine Aminotransferase 37 U/L (4-50); Albumin Level 2.8 g/dL (3.5-5.1); Alkaline Phosphatase 83 U/L (38-126); Anion Gap 3 mmol/L (8-16); Aspartate Amino Transferase 29 U/L (17-59); Bilirubin,Total 0.5 mg/dL (0.2-1.3); Blood Urea Nitrogen 34 mg/dL (9-20); Calcium 8.3 mg/dL (8.4-10.2); Carbon Dioxide 33 mmol/L (22-30); Chloride 92 mmol/L (98-107); Estimated CRCL calculation 67 ml/min; Estimated Glomerular Filt Rate > 60; Glucose 129 mg/dL (75-110); Magnesium 2.1 mg/dL (1.6-2.3); Potassium 4.7 mmol/L (3.4-5.0); Sodium 128 mmol/L (137-145)
[2020-02-17 08:03] LABS: Atypical Lymphocytes Present; Platelet Estimate Adequate (Adequate)
[2020-02-17] MEDS: NEBIVOLOL HCL 5 MG TABLET PO (09:31)
[2020-02-17] MEDS: MONTELUKAST SODIUM 10 MG TABLET PO (09:31)
[2020-02-17] MEDS: CHOLECALCIFEROL 400 UNITS TABLET (VIT D) PO (09:31)
[2020-02-17] MEDS: PANTOPRAZOLE 40 MG TABLET PO (09:31)
[2020-02-17] MEDS: DEXAMETHASONE SOD PHOS INJ 4 MG/ML VIAL 6 MG IV PUSH (09:32)
[2020-02-17] MEDS: FOLIC ACID 1 MG TABLET PO (09:32)
[2020-02-17] MEDS: OLOPATADINE 0.1% OPHTH SOLN 5 ML BTL 1 DROP EACH EYE ×2 (09:33→16:32)
[2020-02-17] MEDS: FLUTICASONE PROPIONATE 0.05% NA SPR 16 GM BTL (*BKC) 1 SPRAY NASAL ×2 (09:33→16:32)
[2020-02-17] MEDS: guaiFENesin 12 HR 600 MG TABCR PO ×2 (09:33→21:52)
--- NOTE | 2020-02-17 14:54 | PM.IMPN ---
Progress Note: A&P Assessment and Plan (1) Pneumonia due to 2019 novel coronavirus: Code(s): U07.1 - COVID-19; J12.89 - Other viral pneumonia Status: Acute Assessment and Plan: Patient tested positive on 02/11 per patient. CXR suggestive of pneumonia. Started on Remdesivir and Dexamethasone on 02/11. Patient reports feeling today. Clinically looks slightly better today; On 2 L O2 NC at time of visit. BCx NGTD. Sputum culture showing growth of normal oropharyngeal brandie. Afebrile since 02/11 Finished Remdesivir treatment (07/18) continue Decadron (day 6) Continue supportive care with nebs if applicable on med/surg floor, mucinex scheduled and Robitussin prn, tylenol, IS Patient refusing Lovenox given history of GI bleed earlier this year; no evidence of bleeding. will do SCDs if he continues to refuse PT/OT Wean O2 as tolerated Monitor will hold on cefepime as bacterial pneumonia felt to be less likely, but will continue to monitor and consider resuming if worsening respiratory status. Recent SNF stay and recent hospitalization noted (2) Acute respiratory failure due to COVID-19: Code(s): U07.1 - COVID-19; J96.00 - Acute respiratory failure, unspecified whether with hypoxia or hypercapnia Status: Acute Assessment and Plan: Likely secondary to COVID pneumonia. On supplemental 2L O2 currently Wean O2 as tolerated Continue treatment as above (3) Hyponatremia: Code(s): E87.1 - Hypo-osmolality and hyponatremia Status: Acute Assessment and Plan: Chronic. 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 Na 128 today. Continue to monitor Strict I/O's (4) Duodenal ulcer: Code(s): K26.9 - Duodenal ulcer, unspecified as acute or chronic, without hemorrhage or perforation Status: Acute Assessment and Plan: Stable on PPI. No evidence of bleeding Continue PPI (5) Chronic diastolic (congestive) heart failure: Code(s): I50.32 - Chronic diastolic (congestive) heart failure Status: Acute Assessment and Plan: Appears to be euvolemic. BP a bit soft the past couple of days and losartan held Continue Nebivolol for now Resume Losartan when appropriate. (6) CLL (chronic lymphocytic leukemia): Onset Date: Unknown Code(s): C91.10 - Chronic lymphocytic leukemia of B-cell type not having achieved remission Status: Acute Assessment and Plan: Leukocytosis present which appears to be stable upon review of labs. Afebrile since presentation on 02/11 Monitor daily Consider Oncology consultation for further input (7) Gastroesophageal reflux disease: Onset Date: Unknown Qualifiers: Esophagitis presence: without esophagitis Qualified Code(s): K21.9 - Gastro-esophageal reflux disease without esophagitis Code(s): K21.9 - Gastro-esophageal reflux disease without esophagitis Status: Acute Assessment and Plan: On PPI. No complaints Continue home therapy Subjective Date/time seen: 02/17/20 14:54 Interval history: Patient is a 79 yo M with history of Borrero's esophagus, Chronic back pain, Chronic Diastolic Heart failure, CKD, CLL, R femur fx, and HTN who is seen in follow up for COVID pneumonia and acute respiratory failure with hypoxia likely due to same. Patient states he feels okay today. Requested to switch rooms to get some sunlight. His cough is still present. SOB has improved. Still feels weak and does not know if he should return back to his independent living or SNF upon discharge. No other complaints. Denies f/c/s, palpitations, n/v/d/c, abd pain, changes in BMs, dysuria, hematuria, cloudy urine, calf pain/swelling. Review of Systems Review of Sy
--- NOTE | 2020-02-17 15:18 | HOMEO2EVAL ---
Home Oxygen Evaluation RC: Home Oxygen (O2) Evaluation Start: 02/17/20 14:25 Freq: ONCE Status: Active Protocol: RPE Activity Type Activity Date Activity User E-Sign Co-Sign Detail Recorded Client Recorded Date Recorded By Document 02/17/20 14:45 [email or web address] [email or web address] 02/17/20 15:15 EDE Document 02/17/20 14:48 [email or web address] [email or web address] 02/17/20 15:15 EDE Document 02/17/20 14:50 [email or web address] [email or web address] 02/17/20 15:15 EDE Document 02/17/20 14:53 [email or web address] [email or web address] 02/17/20 15:15 EDE Document 02/17/20 14:55 [email or web address] [email or web address] 02/17/20 15:15 EDE Document 02/17/20 15:00 EDE [email or web address] 02/17/20 15:15 EDE 02/17/20 02/17/20 02/17/20 14:45 14:48 14:50 Home O2 Evaluation Test Phase Resting Resting Resting Oxygen Delivery Room Air Nasal Cannula Nasal Cannula Oxygen Flow Rate (L/min) 1 2 Pulse Oximetry (90-100 %) 85 L 86 L 87 L Home Oxygen Evaluation Comments Treatment Charges O2 Evaluation 02/17/20 02/17/20 02/17/20 14:53 14:55 15:00 Home O2 Evaluation Test Phase Resting Exercise Resting Oxygen Delivery Nasal Cannula Nasal Cannula Nasal Cannula Oxygen Flow Rate (L/min) 3 3 3 Pulse Oximetry (90-100 %) 93 91 94 Home Oxygen Evaluation Comments PT COMPLETED OT FOR ACTIVITY PT REQUIRES 3 LITERS REST AND EXERTION Treatment Charges
--- NOTE | 2020-02-17 15:24 | PCRCNOTE ---
VIGRILIO STATES HE HAS HOME O2, WILL HAVE ALL NEEDS WHEN HE GETS BACK TO HOME.
[2020-02-17] MEDS: ALBUTEROL SULFATE (*SP) INHALER 2 PUFF INHALATION (21:39)
[2020-02-18] VITALS (8 sets, daily range): BP systolic 121–145; BP diastolic 74–85; PULSE 70–78; RESP 18–20; TEMP 36.3–36.6; O2SAT 93–98
[2020-02-18 06:32] LABS: Hemoglobin 11.6 g/dL (14.0-18.0); Immature Granulocyte Absolute 0.12 K/mm3 (0.00-0.031); Immature Granulocyte Percent A 0.2 % (0-0.5); Lymphocytes Absolute Auto 50.47 K/mm3 (0.9-3.2); Lymphocytes Percent Auto 90.4 % (18.3-44.2); Mean Corpuscular HGB Conc 31.4 g/dl (32-36); Mean Corpuscular Hemoglobin 28.4 pg (26-34); Mean Corpuscular Volume 90.7 fl (80-100); Mean Platelet Volume 9.5 fl (7.4-10.4); Monocytes Absolute Auto 0.4 K/mm3 (0.1-0.6); Monocytes Percent Auto 0.8 % (2.6-8.5); Neutrophils Absolute Auto 4.8 K/mm3 (1.3-6.7); Neutrophils Percent Auto 8.6 % (45.5-73.1); Platelet Count Result 151 k/mm3 (150-375); Red Blood Count 4.08 M/mm3 (4.6-6.20); Red Cell Distribution Width 13.7 % (11.5-14.5)
[2020-02-18 06:50] LABS: Alanine Aminotransferase 36 U/L (4-50); Albumin Level 2.9 g/dL (3.5-5.1); Alkaline Phosphatase 81 U/L (38-126); Anion Gap 1 mmol/L (8-16); Aspartate Amino Transferase 34 U/L (17-59); Bilirubin,Total 0.8 mg/dL (0.2-1.3); Blood Urea Nitrogen 35 mg/dL (9-20); CRP 3.3 mg/dL (<1.0); Calcium 8.7 mg/dL (8.4-10.2); Carbon Dioxide 35 mmol/L (22-30); Chloride 90 mmol/L (98-107); Estimated CRCL calculation 67 ml/min; Estimated Glomerular Filt Rate > 60; Glucose 107 mg/dL (75-110); Lactate Dehydrogenase 345 U/L (313-618); Magnesium 2.1 mg/dL (1.6-2.3); Potassium 5.4 mmol/L (3.4-5.0); Sodium 126 mmol/L (137-145)
--- NOTE | 2020-02-18 07:39 | PCRCNOTE ---
Window of time for administration has passed. See next scheduled administration.
[2020-02-18 07:45] LABS: White Blood Count 55.9 K/mm3 (4.5-10.0)
[2020-02-18 07:47] LABS: Atypical Lymphocytes Present; Platelet Estimate Adequate (Adequate)
[2020-02-18 07:48] LABS: Smudge Cells FEW
[2020-02-18] MEDS: guaiFENesin/DEXTROMETHORPHAN 10 ML UDC 5 ML PO ×2 (08:05→17:06)
[2020-02-18] MEDS: CHOLECALCIFEROL 400 UNITS TABLET (VIT D) PO (08:06)
[2020-02-18] MEDS: DEXAMETHASONE SOD PHOS INJ 4 MG/ML VIAL 6 MG IV PUSH (08:07)
[2020-02-18] MEDS: FLUTICASONE PROPIONATE 0.05% NA SPR 16 GM BTL (*BKC) 1 SPRAY NASAL ×2 (08:08→17:04)
[2020-02-18] MEDS: guaiFENesin 12 HR 600 MG TABCR PO ×2 (08:08→21:28)
[2020-02-18] MEDS: FOLIC ACID 1 MG TABLET PO (08:08)
[2020-02-18] MEDS: NEBIVOLOL HCL 5 MG TABLET PO (08:09)
[2020-02-18] MEDS: MONTELUKAST SODIUM 10 MG TABLET PO (08:09)
[2020-02-18] MEDS: OLOPATADINE 0.1% OPHTH SOLN 5 ML BTL 1 DROP EACH EYE ×2 (08:09→17:05)
[2020-02-18] MEDS: PANTOPRAZOLE 40 MG TABLET PO (08:10)
[2020-02-18] MEDS: ALBUTEROL SULFATE (*SP) INHALER 2 PUFF INHALATION ×3 (08:36→20:49)
[2020-02-18] MEDS: SODIUM CHLORIDE 0.9% IV 500 ML 75 ML IV CONT (10:48)
--- NOTE | 2020-02-18 14:51 | PCOTNOTE ---
Attempted to see patient three times this date. First attempt, patient eating lunch. Second attempt, patient was with physical therapy. Third attempt, patient was too tired.
--- NOTE | 2020-02-18 16:25 | PM.IMPN ---
Progress Note: A&P Assessment and Plan (1) Pneumonia due to 2019 novel coronavirus: Code(s): U07.1 - COVID-19; J12.89 - Other viral pneumonia Status: Acute Assessment and Plan: Patient tested positive on 02/11 per patient. CXR suggestive of pneumonia. Started on Remdesivir and Dexamethasone on 02/11. Patient reports feeling today. Clinically looks slightly better today; On 3 L O2 NC at time of visit, but this has varied throughout stay. Home O2 eval on 02/16 shows he needs 3 L at rest and with activity; uses O2 at nighttime as well. BCx negative after 5 days. Sputum culture showing growth of normal oropharyngeal brandie. Afebrile since 02/11 Received Remdesivir treatment x 5 days; finished 02/15 continue Decadron (day 7) Continue supportive care with nebs if applicable on med/surg floor, mucinex scheduled and Robitussin prn, tylenol, IS Patient refusing Lovenox given history of GI bleed earlier this year; no evidence of bleeding. will do SCDs if he continues to refuse PT/OT Wean O2 as tolerated Monitor will hold on cefepime as bacterial pneumonia felt to be less likely, but will continue to monitor and consider resuming if worsening respiratory status. Recent SNF stay and recent hospitalization noted (2) Acute respiratory failure due to COVID-19: Code(s): U07.1 - COVID-19; J96.00 - Acute respiratory failure, unspecified whether with hypoxia or hypercapnia Status: Acute Assessment and Plan: Likely secondary to COVID pneumonia. On supplemental 3L O2 currently Wean O2 as tolerated Continue treatment as above (3) Hyponatremia: Code(s): E87.1 - Hypo-osmolality and hyponatremia Status: Acute Assessment and Plan: Chronic. 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 Na 126 today with K+ 5.4. 500 mL NS IV at 75mL/hr given for high K+, will have to monitor Na levels closely Monitor BMP this afternoon and tomorrow morning Strict I/O's (4) Duodenal ulcer: Code(s): K26.9 - Duodenal ulcer, unspecified as acute or chronic, without hemorrhage or perforation Status: Acute Assessment and Plan: Stable on PPI. No evidence of bleeding Continue PPI (5) Chronic diastolic (congestive) heart failure: Code(s): I50.32 - Chronic diastolic (congestive) heart failure Status: Acute Assessment and Plan: Appears to be euvolemic. BP a bit soft the past couple of days and losartan held Continue Nebivolol for now Resume Losartan when appropriate. (6) CLL (chronic lymphocytic leukemia): Onset Date: Unknown Code(s): C91.10 - Chronic lymphocytic leukemia of B-cell type not having achieved remission Status: Acute Assessment and Plan: Leukocytosis present which appears to be stable upon review of labs. Afebrile since presentation on 02/11 Monitor daily Consider Oncology consultation for further input (7) Gastroesophageal reflux disease: Onset Date: Unknown Qualifiers: Esophagitis presence: without esophagitis Qualified Code(s): K21.9 - Gastro-esophageal reflux disease without esophagitis Code(s): K21.9 - Gastro-esophageal reflux disease without esophagitis Status: Acute Assessment and Plan: On PPI. No complaints Continue home therapy (8) Hyperkalemia: Code(s): E87.5 - Hyperkalemia Status: Acute Assessment and Plan: K+ 5.4 this morning; unclear etiology as Cr is stable and losartan has been held. 500 mL NS IV given at 75 mL/hr. No CP/palpiations Monitor BMP this afternoon and tomorrow Consider Kayexalate if no improvement Subjective Date/time seen: 02/18/20 16:25 Interval history: Patient is a 79
[2020-02-18] MEDS: ACETAMINOPHEN 325 MG TABLET 650 MG PO (17:06)
[2020-02-18 17:08] LABS: Anion Gap 4 mmol/L (8-16); Blood Urea Nitrogen 38 mg/dL (9-20); Calcium 8.5 mg/dL (8.4-10.2); Carbon Dioxide 33 mmol/L (22-30); Chloride 87 mmol/L (98-107); Estimated CRCL calculation 58 ml/min; Estimated Glomerular Filt Rate > 60; Glucose 165 mg/dL (75-110); Potassium 5.9 mmol/L (3.4-5.0); Sodium 124 mmol/L (137-145)
[2020-02-18] MEDS: SALINE 0.65% NAS SOLN 44 ML BTL 1 SPRAY NASAL (18:21)
[2020-02-18 21:01] LABS: Sodium Urine Random 57 meq/L
[2020-02-19] VITALS: BP 122/82; PULSE 85; RESP 20; TEMP 36.2; O2SAT 91
[2020-02-19] MEDS: ALBUTEROL SULFATE (*SP) INHALER 2 PUFF INHALATION ×3 (03:21→15:36)
[2020-02-19 03:22] VITALS: PULSE 79; O2SAT 92
[2020-02-19 04:00] VITALS: BP 119/71; PULSE 62; RESP 20; TEMP 36.3; O2SAT 93
[2020-02-19 05:42] LABS: Basophils Percent Auto 0.1 % (0.2-1.2); Hematocrit 34.4 % (42.0-52.0); Hemoglobin 11.2 g/dL (14.0-18.0); Immature Granulocyte Percent A 0.2 % (0-0.5); Lymphocytes Absolute Auto 44.99 K/mm3 (0.9-3.2); Lymphocytes Percent Auto 90.3 % (18.3-44.2); Mean Corpuscular HGB Conc 32.6 g/dl (32-36); Mean Corpuscular Hemoglobin 29.1 pg (26-34); Mean Corpuscular Volume 89.4 fl (80-100); Mean Platelet Volume 9.2 fl (7.4-10.4); Monocytes Absolute Auto 0.4 K/mm3 (0.1-0.6); Monocytes Percent Auto 0.9 % (2.6-8.5); Neutrophils Absolute Auto 4.3 K/mm3 (1.3-6.7); Neutrophils Percent Auto 8.5 % (45.5-73.1); Platelet Count Result 145 k/mm3 (150-375); Red Blood Count 3.85 M/mm3 (4.6-6.20); Red Cell Distribution Width 13.8 % (11.5-14.5); White Blood Count 49.8 K/mm3 (4.5-10.0)
[2020-02-19 05:53] LABS: Alanine Aminotransferase 32 U/L (4-50); Albumin Level 2.8 g/dL (3.5-5.1); Alkaline Phosphatase 76 U/L (38-126); Anion Gap -1 mmol/L (8-16); Aspartate Amino Transferase 32 U/L (17-59); Bilirubin,Total 0.8 mg/dL (0.2-1.3); Blood Urea Nitrogen 33 mg/dL (9-20); Calcium 8.3 mg/dL (8.4-10.2); Carbon Dioxide 38 mmol/L (22-30); Chloride 88 mmol/L (98-107); Estimated CRCL calculation 67 ml/min; Estimated Glomerular Filt Rate > 60; Glucose 98 mg/dL (75-110); Sodium 125 mmol/L (137-145)
[2020-02-19 06:22] LABS: Cortisol Baseline 1.21 ug/dL
[2020-02-19 07:03] LABS: Platelet Estimate Adequate (Adequate); Smudge Cells MODERATE
[2020-02-19 07:04] LABS: Atypical Lymphocytes Present
[2020-02-19 08:00] VITALS: BP 100/74; PULSE 77; PULSE 79; RESP 18; RESP 20; TEMP 36.9; O2SAT 92; O2SAT 96
[2020-02-19 08:13] VITALS: PULSE 79; O2SAT 92
[2020-02-19] MEDS: FLUTICASONE PROPIONATE 0.05% NA SPR 16 GM BTL (*BKC) 1 SPRAY NASAL ×2 (09:36→16:51)
[2020-02-19] MEDS: CHOLECALCIFEROL 400 UNITS TABLET (VIT D) PO (09:36)
[2020-02-19] MEDS: DEXAMETHASONE SOD PHOS INJ 4 MG/ML VIAL 6 MG IV PUSH (09:36)
[2020-02-19] MEDS: FOLIC ACID 1 MG TABLET PO (09:36)
[2020-02-19] MEDS: guaiFENesin 12 HR 600 MG TABCR PO (09:36)
[2020-02-19] MEDS: NEBIVOLOL HCL 5 MG TABLET PO (09:38)
[2020-02-19] MEDS: PANTOPRAZOLE 40 MG TABLET PO (09:38)
[2020-02-19] MEDS: MONTELUKAST SODIUM 10 MG TABLET PO (09:38)
[2020-02-19] MEDS: OLOPATADINE 0.1% OPHTH SOLN 5 ML BTL 1 DROP EACH EYE ×2 (09:38→16:51)
--- NOTE | 2020-02-19 12:50 | PM.DS ---
DS: Admitting Diagnosis Admitting Diagnosis Admitting Diagnosis: Coronavirus pneumonia, DS: Discharge Diagnosis Discharge Diagnosis (1) Pneumonia due to 2019 novel coronavirus: Code(s): U07.1 - COVID-19; J12.89 - Other viral pneumonia Status: Acute Assessment and Plan: Patient tested positive on 02/11 per patient. CXR suggestive of pneumonia. Started on Remdesivir and Dexamethasone on 02/11. Patient reports feeling today. Clinically looks slightly better today; On 3 L O2 NC at time of visit, but this has varied throughout stay. Home O2 eval on 02/16 shows he needs 3 L at rest and with activity; uses O2 at nighttime as well. BCx negative after 5 days. Sputum culture showing growth of normal oropharyngeal brandie. Afebrile since 02/11 Received Remdesivir treatment x 5 days; finished 02/15 Decadron x 8 days Discharge back to independent living today Continue supportive care with albuterol, mucinex scheduled and Robitussin prn, tylenol, IS after discharge Patient refusing Lovenox given history of GI bleed earlier this year; no evidence of bleeding. SCDs during stay given his refusal Wean O2 as tolerated Held on cefepime (ordered on admission) as bacterial pneumonia felt to be less likely F/u with PCP (2) Acute respiratory failure due to COVID-19: Code(s): U07.1 - COVID-19; J96.00 - Acute respiratory failure, unspecified whether with hypoxia or hypercapnia Status: Acute Assessment and Plan: Likely secondary to COVID pneumonia. On supplemental 3L O2 currently. Home O2 eval shows 3 L at rest and with activity. Wean O2 as tolerated Continue treatment as above (3) Hyponatremia: Code(s): E87.1 - Hypo-osmolality and hyponatremia Status: Acute Assessment and Plan: Chronic. 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 Na 125 today. [facility] on 02/21 for further monitoring F/u with PCP (4) Duodenal ulcer: Code(s): K26.9 - Duodenal ulcer, unspecified as acute or chronic, without hemorrhage or perforation Status: Acute Assessment and Plan: Stable on PPI. No evidence of bleeding Continue PPI (5) Chronic diastolic (congestive) heart failure: Code(s): I50.32 - Chronic diastolic (congestive) heart failure Status: Acute Assessment and Plan: Appears to be euvolemic. BP a bit soft the past couple of days and losartan held Continue Nebivolol for now Hold Losartan at discharge and resume when appropriate. (6) CLL (chronic lymphocytic leukemia): Onset Date: Unknown Code(s): C91.10 - Chronic lymphocytic leukemia of B-cell type not having achieved remission Status: Acute Assessment and Plan: Leukocytosis present which appears to be stable upon review of labs. Afebrile since presentation on 02/11 CBC on 02/21 Consider Oncology consultation for further input (7) Gastroesophageal reflux disease: Onset Date: Unknown Qualifiers: Esophagitis presence: without esophagitis Qualified Code(s): K21.9 - Gastro-esophageal reflux disease without esophagitis Code(s): K21.9 - Gastro-esophageal reflux disease without esophagitis Status: Acute Assessment and Plan: On PPI. No complaints Continue home therapy (8) Hyperkalemia: Code(s): E87.5 - Hyperkalemia Status: Acute Assessment and Plan: K+ 5.0 this morning; unclear etiology as Cr is stable and losartan has been held. 500 mL NS IV given at 75 mL/hr yesterday. No CP/palpiations BMP on 02/21 F/u with PCP DS: Summary Hospital Course Reason for hospitalization: COVID Pneumonia/Acute respiratory failure with hypoxia Hospital Course: Date of arrival: 02/12/20
== END 2020-02-19 16:30 | DRG 177 ==
LOC: ANHED 18:41 → ANH3MEDSUR 19:18
PROVIDERS: Internal Medicine; Nurse Practitioner; Physician Assistant; Admitting Provider Student in an Organized Health Care Education/Training Program; Emergency Provider Emergency Medicine; PCP Family Medicine; Visit Provider Physician Assistant
DX: U07.1 COVID-19 (principal); J12.89 Other viral pneumonia; J96.01 Acute respiratory failure with hypoxia; I13.0 Hypertensive heart and chronic kidney disease with heart failure and stage 1 through stage 4 chronic kidney disease, or unspecified chronic kidney disease; C91.10 Chronic lymphocytic leukemia of B-cell type not having achieved remission; I50.32 Chronic diastolic (congestive) heart failure; E22.2 Syndrome of inappropriate secretion of antidiuretic hormone; K21.9 Gastro-esophageal reflux disease without esophagitis; K26.9 Duodenal ulcer, unspecified as acute or chronic, without hemorrhage or perforation; N18.30 Chronic kidney disease, stage 3 unspecified; E87.5 Hyperkalemia; M25.562 Pain in left knee; M54.5 Low back pain; G89.29 Other chronic pain; Z86.73 Personal history of transient ischemic attack (TIA), and cerebral infarction without residual deficits; Z79.899 Other long term (current) drug therapy; Z98.42 Cataract extraction status, left eye; Z98.41 Cataract extraction status, right eye
CPT/HCPCS: 36415; 36600; 71045; 74018; 80048; 80053; 80076; 81001; 82375; 82533; 82728; 82805; 83050; 83605; 83615; 83735; 83880; 84300; 84460; 85025; 85027; 85055; 86140; 87040; 87070; 87086; 87205; 93005; 94618; 94640; 96365; 96375; 97110; 97116; 97161; 97165; 97530; 99291; A9270; J0131; J0692; J1100; J1650; J7030; J7040

== ENCOUNTER 2020-05-03 14:28 | Outpatient (CLI) | payer MEDICARE, SELFPAY ==
--- NOTE | ~2020-05-03 | CT_ITS ---
EXAMINATION: CT diagnostic chest wo con DATE: 05/03/2020 15:00 INDICATION: Pneumonia TECHNIQUE: Computed tomography (CT) of the chest was performed without intravenous contrast. Automate d exposure control and iterative reconstruction technique were employed. Exam dose: 172.00 mGy-cm to viraj exam DLP. COMPARISON: 02/14/2020 portable AP chest 01/21/2019 CT chest high resolution scan FINDINGS: There are peripheral interstitial linear and reticular opacities and bronchiectasis suggest ing usual interstitial pneumonia, predominating in the lingula and the lower lobes. These findings ar e increased in severity compared to 01/21/2019. Superimposed mild pneumonia is not excluded. There is cardiomegaly. There is prominent coronary artery calcification. There is thoracic aortic ect iwona and mild calcification. No hilar or mediastinal mass lesion or lymphadenopathy. Small sliding hiatal hernia Cholelithiasis. Splenomegaly is suggested. Diffuse osteopenia. Again noted are prominent fracture deformity of T3, T10, T10-T11 and T12, stable in appearance since 01/21/2019. Old healed fracture deformity of the sternal manubrium. Scoliosis and degenerative change of the thoracic spine.. IMPRESSION: Peripheral interstitial changes of the lingula and both lower lobes suggestive of usual interstitial pneumonia, increased in severity since 01/21/2019; superimposed pneumonia is not excluded . Cardiomegaly, prominent coronary atherosclerotic calcification Thoracic aortic ectasia and calcification Cholelithiasis Splenomegaly Small sliding hiatal hernia Reviewed, dictated and finalized at [facility]. Reviewed, dictated and finalized at [facility]. ASE AND INSECT CONTROL BOSS IMPRESSION: Peripheral interstitial changes of the lingula and both lower lobe s suggestive of usual interstitial pneumonia, increased in severity since 2018; superimposed pneumonia is not excluded. Cardiomegaly, prominent coronary atherosclerotic calcification Thoracic aortic ectasia and calcification Cholelithiasis Splenomegaly Small sliding hiatal hernia
== END 2020-05-03 14:29 | disposition home or self-care (01) ==
PROVIDERS: PCP Family Medicine; Visit Provider Family Medicine
DX: J18.9 Pneumonia, unspecified organism (principal); K80.20 Calculus of gallbladder without cholecystitis without obstruction; R16.1 Splenomegaly, not elsewhere classified; K44.9 Diaphragmatic hernia without obstruction or gangrene; I51.7 Cardiomegaly
CPT/HCPCS: 71250

== ENCOUNTER → 2020-06-05 09:43 | Outpatient (REF) | payer MEDICARE, SELFPAY | LOC: ANHLAB 09:43 | PROVIDERS: PCP Family Medicine; Visit Provider Nurse Practitioner | DX: C44.329 Squamous cell carcinoma of skin of other parts of face (principal); L57.0 Actinic keratosis; C44.722 Squamous cell carcinoma of skin of right lower limb, including hip | CPT/HCPCS: 88305 ==

== ENCOUNTER → 2020-07-02 09:16 | Outpatient (REF) | payer MEDICARE, SELFPAY | LOC: ANHLAB 09:16 | PROVIDERS: PCP Family Medicine; Visit Provider Nurse Practitioner | DX: C44.329 Squamous cell carcinoma of skin of other parts of face (principal); C44.722 Squamous cell carcinoma of skin of right lower limb, including hip | CPT/HCPCS: 88305; 88331 ==

== ENCOUNTER → 2020-07-24 11:46 | Outpatient (REF) | payer MEDICARE, SELFPAY | LOC: ANHLAB 11:46 | PROVIDERS: PCP Family Medicine; Visit Provider Nurse Practitioner | DX: C43.4 Malignant melanoma of scalp and neck (principal) | CPT/HCPCS: 88305; 88342 ==

== ENCOUNTER → 2020-08-10 10:26 | Outpatient (REF) | payer MEDICARE, SELFPAY | LOC: ANHLAB 10:26 | PROVIDERS: PCP Family Medicine; Visit Provider Surgery Plastic and Reconstructive Surgery | DX: C43.4 Malignant melanoma of scalp and neck (principal) | CPT/HCPCS: 88305; 88342 ==

== ENCOUNTER → 2020-08-23 16:43 | Outpatient (REF) | payer MEDICARE, SELFPAY | LOC: ANHLAB 16:43 | PROVIDERS: PCP Family Medicine; Visit Provider Surgery Plastic and Reconstructive Surgery | DX: C43.4 Malignant melanoma of scalp and neck (principal) | CPT/HCPCS: 88305; 88342 ==

== ENCOUNTER → 2020-11-29 12:02 | Outpatient (REF) | payer MEDICARE, SELFPAY | LOC: ANHLAB 12:02 | PROVIDERS: PCP Family Medicine; Visit Provider Nurse Practitioner | DX: D49.2 Neoplasm of unspecified behavior of bone, soft tissue, and skin (principal) | CPT/HCPCS: 88305; 88342 ==

== ENCOUNTER → 2020-12-11 12:58 | Outpatient (REF) | payer MEDICARE, SELFPAY | LOC: ANHLAB 12:58 | PROVIDERS: PCP Family Medicine; Visit Provider Nurse Practitioner | DX: D03.4 Melanoma in situ of scalp and neck (principal) | CPT/HCPCS: 88305; 88342 ==

== ENCOUNTER 2020-12-21 12:05 | Emergency (ER) | payer MEDICARE, SELFPAY ==
--- NOTE | ~2020-12-21 | XR_ITS ---
EXAMINATION: XR chest 2V DATE: 12/21/2020 12:50 INDICATION: Shortness of breath. TECHNIQUE: Frontal and lateral views of the chest were obtained. COMPARISON: Chest single view 02/14/2020, chest CT 05/03/2020 FINDINGS: Again seen are small lung volumes. There are interstitial opacities in all right lung zones and left mid and lower lung zones with a lower lung predominance, consistent with chronic interstiti al lung disease. A calcified left lung nodule is consistent with old granulomatous disease. No pleura l effusion or pneumothorax. Cardiomegaly is noted. There is an old healed fracture of the sternum. Th ere are multiple old vertebral body fractures. IMPRESSION: 1. Chronic interstitial lung disease, stable from 05/03/2020. 2. Cardiomegaly. Reviewed, dictated and finalized at [facility].
--- NOTE | ~2020-12-21 | CT_ITS ---
EXAMINATION: CTA chest PE abdomen pel DATE: 12/21/2020 14:28 INDICATION: Shortness of breath. Cough. Body aches. TECHNIQUE: Computed tomography angiography (CTA) of the chest, abdomen and pelvis was performed with 100 mL Omnipaque-350 intravenous contrast timed to evaluate the pulmonary arteries. Coronal maximum i ntensity projection 3D-reconstructions were created by the technologist. Automated exposure control a nd iterative reconstruction technique were employed. Exam dose: 762.13 mGy-cm total exam DLP. COMPARISON: 12/21/2020 AP and lateral chest 05/03/2020 CT chest 04/15/2019 CT abdomen pelvis FINDINGS: There is diagnostic contrast enhancement of the pulmonary arteries and no evidence of pulmo nary embolism. No hilar or mediastinal mass lesion or lymphadenopathy. Cardiomegaly. Coronary artery extensive calcification. No pericardial or pleural effusion. There is mild atelectasis involving primarily the lower lobes and lingula. Cholelithiasis. No gallbladder wall thickening or pericholecystic fluid or fat stranding. No hepatic space-occupying mass lesion. Splenomegaly. No pancreatic mass lesion or calcification. No bile duct or pancreatic duct dilatation is detected. No adrenal mass lesion. Scattered bilateral small renal cysts. No urinary tract calculus or hydroureteronephrosis. Urinary bladder is unremarkable. There is prostat e enlargement. There is diverticulosis of the colon; no CT evidence of diverticulitis. No bowel obstruction or intra peritoneal free air is detected. Normal caliber of the abdominal aorta. No intraperitoneal or retroperitoneal or pelvic mass lesion or adenopathy or ascites. There is a nail and compression screw of the proximal right femur. Diffuse osteopenia. There is old healed fracture deformity of the manubrium of the sternum. There are bilateral old heale d rib fracture deformities. There is scoliosis of the thoracic and lumbar spine. There are multiple prominent fracture deformities of the lower thoracic spine including T3, T7, T10, T11 and T12. There is severe degenerative disc disease throughout the lumbar spine. Bilateral hip osteoarthritis. IMPRESSION: No evidence of pulmonary embolism Cardiomegaly Cholelithiasis Splenomegaly Bilateral small renal cysts Prostate enlargement Diverticulosis of the colon Multiple old fracture deformities of barium, bilateral ribs Multiple thoracic compression deformities including T3, T7, T10, T11 and T12 Severe degenerative disc disease of the lumbar spine Bilateral hip osteoarthritis Reviewed, dictated and finalized at [facility] Reviewed, dictated and finalized at [facility].
[2020-12-21 12:09] VITALS: BP 138/75; PULSE 71; RESP 20; TEMP 36.9; O2SAT 99
[2020-12-21 12:19] VITALS: BP 123/75; PULSE 66; RESP 20; O2SAT 97
--- NOTE | 2020-12-21 12:19 | ECG_ITS ---
Measurements Intervals [place] Rate: 68 P: 31 MT: 215 QRS: -15 QRSD: 101 T: 3 QT: 395 QTc: 421 Interpretive Statements SINUS RHYTHM WITH FIRST DEGREE AV BLOCK LEFT ATRIAL ENLARGEMENT CANNOT RULE OUT SEPTAL INFARCT, AGE INDETERMINATE BORDERLINE T WAVE ABNORMALITY- INFERIOR LEADS BASELINE ARTIFACT- II, III, AVF, V1, V3-V5 ABNORMAL ECG Electronically Signed On 12-21-2020 12:40:40 CDT by Geovani Tipton D.O.
[2020-12-21 12:38] LABS: Hemoglobin 12.6 g/dL (14.0-18.0); Mean Corpuscular HGB Conc 33.2 g/dl (32-36); Mean Corpuscular Volume 90.5 fl (80-100); Mean Platelet Volume 8.8 fl (7.4-10.4); Platelet Count Result 110 k/mm3 (150-375); Red Cell Distribution Width 13.5 % (11.5-14.5); White Blood Count 31.6 K/mm3 (4.5-10.0)
[2020-12-21 12:50] LABS: Anion Gap 7 mmol/L (8-16); Blood Urea Nitrogen 45 mg/dL (9-20); Calcium 9.1 mg/dL (8.4-10.2); Carbon Dioxide 28 mmol/L (22-30); Chloride 93 mmol/L (98-107); Estimated CRCL calculation 45 ml/min; Estimated Glomerular Filt Rate > 60; Glucose 96 mg/dL (65-110); Potassium 4.9 mmol/L (3.4-5.0); Sodium 128 mmol/L (137-145)
[2020-12-21 12:59] LABS: Lymphocytes Absolute Manual 28.12 K/mm3 (1.1-4.5); Monocytes Absolute Manual 0.31 K/mm3 (0.1-0.90); Monocytes Percent Manual 1 % (3-9); Neutrophils Percent Manual 10 % (46-73); Total Cells Counted 100
[2020-12-21 13:00] LABS: Atypical Lymphocytes Present
[2020-12-21 14:30] LABS: INR 1.2; Prothrombin Time 14.9 Seconds (11.1-14.7)
[2020-12-21 14:31] LABS: Partial Thromboplastin Time 31.9 SECONDS (22.3-36.8)
[2020-12-21 15:02] LABS: NT Pro B Type Natriuretic Pept 607 pg/mL (5-100); Troponin I < 0.012 ng/mL (0.000-0.034)
[2020-12-21] MEDS: SODIUM CHLORIDE 0.9% IV 500 ML 999 ML IV CONT (15:16)
[2020-12-21] MEDS: KETOROLAC 15 MG/ML VIAL (*BKC) IV PUSH (15:16)
--- NOTE | 2020-12-21 15:46 | ED.BACK ---
HPI - Back Pain/Injury General Chief Complaint: Shortness of Breath/Dyspnea Stated Complaint: generalized body aches Time Seen by Provider: 12/21/20 13:34 Source: patient Mode of arrival: wheelchair Limitations: no limitations History of Present Illness MD elicited complaint: back pain Pertinent past history: prior back pain and other (Increasing pain over the past few days to back radiating to right hip.) Onset (ago): week(s) (1) Timing: constant and progressively worsening Severity: moderate Similar Symptoms Previously: Yes Quality: sharp, aching and throbbing Location: lumbar spine, thoracic spine, sacrum and right lower back Radiation: groin Exacerbating factors: movement Relieving factors: immobilization Associated symptoms: difficulty walking and other (Shortness of breath) Treatments prior to arrival: acetaminophen Work related injury: No Related Data Home Medications Medication Instructions Recorded Confirmed cholecalciferol (vitamin D3) 10 10 mcg PO DAILY 10/18/19 08/24/20 mcg (400 unit) capsule folic acid 1 mg PO DAILY 02/12/20 08/24/20 Allergies Allergy/AdvReac Type Severity Reaction Status Date / Time fentanyl Allergy Severe Loss of Verified 12/11/20 12:46 Consciousness hydrocodone Allergy Severe Loss of Verified 12/11/20 12:46 Consciousness oxycodone Allergy Severe Loss of Verified 12/11/20 12:46 Consciousness nylon Allergy Other Verified 12/11/20 12:46 SILKSUTURES Allergy Severe REDNESS Uncoded 07/12/20 10:59 Review of Systems Review of Systems: CONSTITUTIONAL: no fever, no confusion EYES: no vision changes, no eye pain ENT: nasal congestion,no sore throat, no difficulty swallowing CARDIOVASCULAR: no chest pain, no leg edema, no palpitations RESPIRATORY: positive cough, positive shortness of breath, no hemoptysis GASTROINTESTINAL: constiation, no nausea, no vomiting, no diarrhea GENITOURINARY: no flank pain, no dysuria, no hematuria SKIN: no rash, no jaundice MUSCULOSKELETAL: upper and lower back pain, no trauma. NEUROLOGIC: No headache, no dizziness, no focal weakness PSYCHIATRIC: No hallucinations, no suicidal ideation PMFSH Past Medical History Medical History AK (actinic keratosis) Ataxia Borrero's esophagus without dysplasia Biliary acute pancreatitis without necrosis or infection Cardiopulmonary arrest x3. Cataracts, bilateral Cholecystitis Chronic bilateral low back pain without sciatica Chronic diastolic (congestive) heart failure Chronic kidney disease, stage 3 (moderate) Chronic leukemia of unspecified cell type not having achieved remission Chronic lymphocytic leukemia of B-cell type not having achieved remission CLL (chronic lymphocytic leukemia) (Unknown) Closed fracture of one rib of right side Closed fracture of trochanter of right femur Combined arterial insufficiency and corporo-venous occlusive erectile dysfunction CVA (cerebral vascular accident) Dizziness Dysfunction of right rotator cuff Esophageal dysphagia Essential (primary) hypertension External hemorrhoids Gastroesophageal reflux disease (Unknown) Granuloma of subcutaneous tissue History of angina History of GI bleed History of SCC (squamous cell carcinoma) of skin Hx of migraines 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
== END 2020-12-21 16:01 ==
PROVIDERS: Emergency Medicine; Emergency Provider Emergency Medicine; PCP Family Medicine
DX: M48.54XA Collapsed vertebra, not elsewhere classified, thoracic region, initial encounter for fracture (principal); M47.814 Spondylosis without myelopathy or radiculopathy, thoracic region; K22.70 Barrett's esophagus without dysplasia; I13.0 Hypertensive heart and chronic kidney disease with heart failure and stage 1 through stage 4 chronic kidney disease, or unspecified chronic kidney disease; N18.30 Chronic kidney disease, stage 3 unspecified; I50.32 Chronic diastolic (congestive) heart failure; C91.10 Chronic lymphocytic leukemia of B-cell type not having achieved remission; Z86.73 Personal history of transient ischemic attack (TIA), and cerebral infarction without residual deficits; K21.9 Gastro-esophageal reflux disease without esophagitis; K58.9 Irritable bowel syndrome, unspecified; M19.012 Primary osteoarthritis, left shoulder; M19.011 Primary osteoarthritis, right shoulder; Z86.16 Personal history of COVID-19; M51.36 Other intervertebral disc degeneration, lumbar region; M16.0 Bilateral primary osteoarthritis of hip; Z98.42 Cataract extraction status, left eye; Z98.41 Cataract extraction status, right eye; I51.7 Cardiomegaly; K80.20 Calculus of gallbladder without cholecystitis without obstruction; R16.1 Splenomegaly, not elsewhere classified; N28.1 Cyst of kidney, acquired; K57.90 Diverticulosis of intestine, part unspecified, without perforation or abscess without bleeding; J84.9 Interstitial pulmonary disease, unspecified; I44.0 Atrioventricular block, first degree; R94.31 Abnormal electrocardiogram [ECG] [EKG]
CPT/HCPCS: 36415; 71046; 71275; 74177; 80048; 83735; 83880; 84484; 85025; 85610; 85730; 93005; 96361; 96374; 99284; J1885; J7040; Q9967

== ENCOUNTER → 2020-12-25 10:20 | Outpatient (REF) | payer MEDICARE, SELFPAY | LOC: ANHLAB 10:20 | PROVIDERS: PCP Family Medicine; Visit Provider Nurse Practitioner | DX: C43.4 Malignant melanoma of scalp and neck (principal) | CPT/HCPCS: 88305; 88342 ==

== ENCOUNTER 2021-01-13 19:59 | Observation (INO) | payer MEDICARE, SELFPAY ==
[2021-01-13] VITALS (14 sets, daily range): BP systolic 95–119; BP diastolic 61–101; PULSE 63–74; RESP 14–20; TEMP 36.3–37.1; O2SAT 96–100; BMI 25.9
[2021-01-13 20:21] LABS: Hemoglobin 10.2 g/dL (14.0-18.0); Mean Corpuscular HGB Conc 32.9 g/dl (32-36); Mean Corpuscular Hemoglobin 30.6 pg (26-34); Mean Corpuscular Volume 93.1 fl (80-100); Mean Platelet Volume 8.4 fl (7.4-10.4); Platelet Count Result 120 k/mm3 (150-375); Red Blood Count 3.33 M/mm3 (4.6-6.20); Red Cell Distribution Width 15.1 % (11.5-14.5); White Blood Count 47.2 K/mm3 (4.5-10.0)
[2021-01-13 20:31] LABS: INR 1.3; Prothrombin Time 15.9 Seconds (11.1-14.7)
[2021-01-13 20:39] LABS: Alanine Aminotransferase 15 U/L (4-50); Albumin Level 3.2 g/dL (3.5-5.1); Alkaline Phosphatase 66 U/L (38-126); Anion Gap 4 mmol/L (8-16); Aspartate Amino Transferase 21 U/L (17-59); Bilirubin,Total 0.5 mg/dL (0.2-1.3); Blood Urea Nitrogen 29 mg/dL (9-20); Calcium 8.1 mg/dL (8.4-10.2); Carbon Dioxide 29 mmol/L (22-30); Chloride 92 mmol/L (98-107); Estimated CRCL calculation 51 ml/min; Estimated Glomerular Filt Rate > 60; Glucose 111 mg/dL (65-110); Potassium 4.4 mmol/L (3.4-5.0); Sodium 125 mmol/L (137-145)
--- NOTE | 2021-01-13 20:44 | ED.WOUNDLAC ---
HPI - Wound/Laceration General Chief Complaint: Wound/Laceration Stated Complaint: bleeding from sx site Time Seen by Provider: 01/13/21 20:03 Source: patient Mode of arrival: ambulatory Limitations: no limitations History of Present Illness HPI narrative: This is an 80-year-old male that presents to the emergency department for bleeding from a recent surgical excision of a melanoma. This was originally performed by Dr. Robbins in the end of November and was found to be melanoma in situ. Patient had an additional excision on the of this month. He has been having trouble with bleeding from the area since his sutures were removed. He recently saw plastics 3 days ago for follow up. He was getting his dressing changed today and started having a large amount of bleeding from the area. EMS was called. Patient currently with large amount of bleeding with pressure dressing in place, soaked. He reports feeling cold. Related Data Home Medications Medication Instructions Recorded Confirmed cholecalciferol (vitamin D3) 10 10 mcg PO DAILY 10/18/19 08/24/20 mcg (400 unit) capsule folic acid 1 mg PO DAILY 02/12/20 08/24/20 Allergies Allergy/AdvReac Type Severity Reaction Status Date / Time fentanyl Allergy Severe Loss of Verified 01/10/21 11:04 Consciousness hydrocodone Allergy Severe Loss of Verified 01/10/21 11:04 Consciousness oxycodone Allergy Severe Loss of Verified 01/10/21 11:04 Consciousness nylon Allergy Other Verified 01/10/21 11:04 SILKSUTURES Allergy Severe REDNESS Uncoded 07/12/20 10:59 Review of Systems Review of Systems: CONSTITUTIONAL: Denies fever SKIN: Reports wound All systems reviewed & are unremarkable except as noted in HPI and below PMFSH Past Medical History Medical History AK (actinic keratosis) Ataxia Borrero's esophagus without dysplasia Biliary acute pancreatitis without necrosis or infection Cardiopulmonary arrest x3. Cataracts, bilateral Cholecystitis Chronic bilateral low back pain without sciatica Chronic diastolic (congestive) heart failure Chronic kidney disease, stage 3 (moderate) Chronic leukemia of unspecified cell type not having achieved remission Chronic lymphocytic leukemia of B-cell type not having achieved remission CLL (chronic lymphocytic leukemia) (Unknown) Closed fracture of one rib of right side Closed fracture of trochanter of right femur Combined arterial insufficiency and corporo-venous occlusive erectile dysfunction CVA (cerebral vascular accident) Dizziness Dysfunction of right rotator cuff Esophageal dysphagia Essential (primary) hypertension External hemorrhoids Gastroesophageal reflux disease (Unknown) Granuloma of subcutaneous tissue History of angina History of GI bleed History of SCC (squamous cell carcinoma) of skin Hx of migraines 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outine healing Other chronic pain Pneumonia due to COVID-19 virus Primary osteoarthritis of both shoulders Right medial knee pain Shingles Slow transit constipation Spinal fracture Splenomegaly Ulcer Surgical History Surgical History (Reviewed 01/10/21 @ 11:05 by Zoraida Odonnell [facility]) History of chest tube placement History of hand surgery History of hip surgery History of
--- NOTE | 2021-01-13 20:46 | PC.NURSE ---
samantha from dr paz to give the pt 2 units of blood from blood bank o pos received from blood bank, started when arrived.
--- NOTE | 2021-01-13 20:49 | PC.NURSE ---
pt gave consent for blood products in room, witnessed by this scientific technical writer, Dr Nugent and Abigail Kolb
[2021-01-13 20:54] LABS: Lymphocytes Absolute Manual 40.59 K/mm3 (1.1-4.5); Monocytes Absolute Manual 0.94 K/mm3 (0.1-0.90); Monocytes Percent Manual 2 % (3-9); Neutrophils Percent Manual 12 % (46-73); Total Cells Counted 100
[2021-01-13 20:55] LABS: Anisocytosis 2+ (NORMAL); Platelet Estimate Decreased (Adequate)
[2021-01-13 20:56] LABS: Atypical Lymphocytes Present
[2021-01-13] MEDS: TUBING, BLOOD SET 1 EACH XX (21:07)
[2021-01-13] MEDS: SODIUM CHLORIDE 0.9% IV 250 ML 30 ML IV CONT (21:08)
[2021-01-13] MEDS: LIDO 1%/EPINEPHRINE 1:100,000 20 ML VIAL (21:09)
--- NOTE | 2021-01-13 21:30 | PM.IMHP ---
H&P: HPI History of Present Illness Date/Time: 01/13/21 21:30 This is an 83-year-old male with past medical history significant for hypertension, hypothyroidism, melanoma, status post excision. Patient presented to the emergency room after his wound had been bleeding nonstop. He received couple of stitches in the emergency room his hemoglobin was 14 and his hematocrit was 42 patient has been his usual state of health he denies any fevers ,rigors, cough ,sputum production, nausea, vomiting, abdominal pain, diarrhea, no syncope or near syncope ,no lightheadedness, no dizziness, patient does complain of chronic back pain also he is post COVID pneumonia and as a consequence he has been left very short of breath mainly at exertion uses a wheelchair and a walker. Patient has been placed in observation and plastic surgeon has been consulted. Chief Complaint: Bleeding Review of Systems Review of Systems: Bleeding from surgical wound on the scalp Constitutional: Constitutional: Denies chills, Denies fatigue, Denies fever(s), Denies lethargy, Denies night sweats and Denies weakness Eyes: Eyes: Denies change in vision ENT: Denies dysphagia, Denies nasal congestion, Denies nasal discharge, Denies nasal obstruction and Denies odynophagia Cardiovascular: Cardiovascular: Reports pedal edema, Denies edema, Denies irregular heart rhythm, Denies claudication, Denies leg ulcers, Denies leg edema, Denies lightheadedness, Denies radiating jaw, neck or arm pain and Denies palpitations Respiratory: Respiratory: Denies cough, Reports dyspnea and Reports dyspnea on exertion Comments: Status post COVID pneumonia Gastrointestinal: Gastrointestinal: Denies abdominal pain, Denies dyspepsia, Denies heartburn, Denies diarrhea, Denies nausea and Denies vomiting Genitourinary: Genitourinary: Reports no additional male genitourinary complaints and Reports as per HPI Musculoskeletal: Musculoskeletal: Denies arthralgias, Denies joint swelling and Denies muscle weakness Comments: Patient uses wheelchair and walker to get by in around the house Integumentary/Breasts: Skin/Breast: Denies pruritus, Denies erythema, Denies rash, Denies skin ulcer, Denies sores and Reports other (Bleeding from surgical scalp wound) Neurologic: Denies vertigo, Denies dizziness, Denies focal weakness and Denies Sensory deficit (Neuro) Psychiatric: Psychiatric: Reports no additional psychiatric complaints and Reports as per HPI Endocrine: Endocrine: Reports no additional endocrine complaints and Reports as per HPI Hematologic/Lymphatic: Hematologic/Lymphatic: Reports no additional hematologic/lymphatic complaints and Reports as per HPI [facility] Past Medical History Medical History AK (actinic keratosis) Ataxia Borrero's esophagus without dysplasia Biliary acute pancreatitis without necrosis or infection Cardiopulmonary arrest x3. Cataracts, bilateral Cholecystitis Chronic bilateral low back pain without sciatica Chronic diastolic (congestive) heart failure Chronic kidney disease, stage 3 (moderate) Chronic leukemia of unspecified cell type not having achieved remission Chronic lymphocytic leukemia of B-cell type not having achieved remission CLL (chronic lymphocytic leukemia) (Unknown) Closed fracture of one rib of right side Closed fracture of trochanter of right femur Combined arterial insufficiency and corporo-venous occlusive erectile dysfunction CVA (cerebral vascular accident) Dizziness Dysfunction of right rotator cuff Esophageal dysphagia Essential (primary) hypertension External hemorrhoids Gastroesophageal reflux disease (Unknown) Granuloma of subcutaneous tissue History of angina History of GI bleed History of SCC (squamous cell carcinoma) of skin Hx of migraines 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
--- NOTE | 2021-01-13 22:53 | ADMGEN ---
This patient, Jordon Guillermo, was admitted to Medical Room 243-. Patient/family oriented to hospital policies and general routines including ID bracelet, bed and alarms, visiting hours, pain management, procedures, bathroom and other care routines, personal items, smoking policy, room service/diet, and visiting hours. Information on how to activate the Rapid Response Team has been discussed. Patient/Family are encouraged to report perceived risks to care and to ask questions if they do not understand what they are told or what they should do.
[2021-01-14] VITALS (7 sets, daily range): BP systolic 106–110; BP diastolic 58–64; PULSE 67–81; RESP 14–17; TEMP 36.6–36.9; O2SAT 96–97
[2021-01-14] MEDS: ACETAMINOPHEN 500 MG TABLET 1000 MG PO (00:15)
--- NOTE | 2021-01-14 05:06 | PC.NURSE ---
Dr. Bill only wants 2 units of blood that was given in ER to be given at this time.
--- NOTE | 2021-01-14 07:02 | WPDCN ---
Assessment and Plan Assessment and plan (1) Neoplasm of skin of scalp: Code(s): D49.2 - Neoplasm of unspecified behavior of bone, soft tissue, and skin Status: Acute Assessment and Plan: Care per hospitalist. No episodes of additional bleeding noted. July d/c from my perspective. Follow-up 1 week. Call with any questions or concerns. (2) History of melanoma: Code(s): Z85.820 - Personal history of malignant melanoma of skin Status: Acute HPI Data of Consult Date/Time: 01/14/21 07:02 Requesting Physician: Yaquelin Bill MD Primary Care Provider: Amadeo Membreno MD Consult Narrative Narrative: Jordon Guillermo is a 80 year old male Who underwent melanoma excision melanoma of the scalp in August of this year followed by atypical letiginous proliferation of the left scalp December 11. He presented to the emergency room with bleeding from the scalp. Emergency room is evaluated. There was significant bleeding suture ligation of bleeding vessels was completed. They were able to get control of the bleeding. They had concerns over blood loss and as such kept him overnight. He states he feels well this morning. No complaints. No fevers or chills. No nausea vomiting. No shortness of breath. No chest pain. He states there has been no additional episodes of bleeding. [facility] Past Medical History Medical History AK (actinic keratosis) Ataxia Borrero's esophagus without dysplasia Biliary acute pancreatitis without necrosis or infection Cardiopulmonary arrest x3. Cataracts, bilateral Cholecystitis Chronic bilateral low back pain without sciatica Chronic diastolic (congestive) heart failure Chronic kidney disease, stage 3 (moderate) Chronic leukemia of unspecified cell type not having achieved remission Chronic lymphocytic leukemia of B-cell type not having achieved remission CLL (chronic lymphocytic leukemia) (Unknown) Closed fracture of one rib of right side Closed fracture of trochanter of right femur Combined arterial insufficiency and corporo-venous occlusive erectile dysfunction CVA (cerebral vascular accident) Dizziness Dysfunction of right rotator cuff Esophageal dysphagia Essential (primary) hypertension External hemorrhoids Gastroesophageal reflux disease (Unknown) Granuloma of subcutaneous tissue History of angina History of GI bleed History of SCC (squamous cell carcinoma) of skin Hx of migraines 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outine healing Other chronic pain Pneumonia due to COVID-19 virus Primary osteoarthritis of both shoulders Right medial knee pain Shingles Slow transit constipation Spinal fracture Splenomegaly Ulcer Surgical History Surgical History History of chest tube placement History of hand surgery History of hip surgery History of inguinal hernia repair ADOLFO. History of ligation of vein History of spinal surgery Multiple. Hx of bilateral cataract extraction Hx of cardiac cath Hx of shoulder surgery Hx of tracheostomy Family History Family History Father Family history of coronary artery disease Family history of primary malignant neoplasm of
[2021-01-14 09:04] LABS: Hematocrit 31.8 % (42.0-52.0); Hemoglobin 10.9 g/dL (14.0-18.0); Mean Corpuscular HGB Conc 34.3 g/dl (32-36); Mean Corpuscular Hemoglobin 31.5 pg (26-34); Mean Corpuscular Volume 91.9 fl (80-100); Red Blood Count 3.46 M/mm3 (4.6-6.20); Red Cell Distribution Width 14.6 % (11.5-14.5); White Blood Count 22.4 K/mm3 (4.5-10.0)
[2021-01-14 09:37] LABS: Alanine Aminotransferase 14 U/L (4-50); Albumin Level 2.9 g/dL (3.5-5.1); Alkaline Phosphatase 54 U/L (38-126); Anion Gap 4 mmol/L (8-16); Aspartate Amino Transferase 19 U/L (17-59); Blood Urea Nitrogen 26 mg/dL (9-20); Calcium 8.2 mg/dL (8.4-10.2); Carbon Dioxide 27 mmol/L (22-30); Chloride 93 mmol/L (98-107); Estimated CRCL calculation 51 ml/min; Estimated Glomerular Filt Rate > 60; Glucose 138 mg/dL (65-110); Potassium 4.2 mmol/L (3.4-5.0); Sodium 124 mmol/L (137-145)
[2021-01-14 10:38] LABS: Atypical Lymphocytes Present; Platelet Count Result 76 k/mm3 (150-375)
[2021-01-14 10:39] LABS: Platelet Estimate Decreased (Adequate)
[2021-01-14 10:40] LABS: Band Neutrophils Percent 1 % (0-6); Blastocytes 13 %; Lymphocytes Absolute Manual 15.68 K/mm3 (1.1-4.5); Lymphocytes Percent Manual 70 % (18-44); Neutrophils Percent Manual 16 % (46-73); Smudge Cells PRESENT; Total Cells Counted 100
[2021-01-14 10:41] LABS: Anisocytosis 1+ (NORMAL)
--- NOTE | 2021-01-14 14:54 | PM.DS ---
DS: Admitting Diagnosis Discharge Date 03/26/2020 Admitting Diagnosis Bleeding from the scalp DS: Discharge Diagnosis Discharge Diagnosis (1) Neoplasm of skin of scalp: Code(s): D49.2 - Neoplasm of unspecified behavior of bone, soft tissue, and skin Status: Acute (2) Hematoma of scalp: Qualifiers: Encounter type: initial encounter Qualified Code(s): S00.03XA - Contusion of scalp, initial encounter Code(s): S00.03XA - Contusion of scalp, initial encounter Status: Acute (3) Bleeding: Code(s): R58 - Hemorrhage, not elsewhere classified Status: Acute DS: Summary Hospital Course Reason for hospitalization: Bleeding from the scalp Hospital Course: E 3 old male past medical history significant for hypertension, hypothyroidism, hyperlipidemia, melanoma the scalp status post excision (2 weeks ago) complicated by pulsating hematoma presented secondary to bleeding from the scalp. In the ED was noted to be hemodynamically stable and Plastic surgery was consulted. Patient received suture to the bleeding hematoma and since then bleeding has resolved. He will continue to follow-up with Plastic surgery for this purpose. Currently doing well and being discharged. Status at Discharge Overall status at discharge: patient is progressing back to baseline Time Spent with Patient Time attestation: Total time spent providing and/or coordinating discharge services: Time spent: Greater than 30 minutes Exam Narrative: General: cooperative, comfortable, no acute distress, well developed, alert and awake Nutritional Appearance: thin Orientation/consciousness: patient oriented x3 HENMT Head: normocephalic and other hematoma noted to the scalp which is sutured. No edema tenderness or active oozing bleeding noted. Ears: hearing grossly normal bilaterally General nose exam: Normal external nose present Face and sinus: normal facial exam Mouth: Yes Normal oral and palatal mucosa present Eyes General: appearance normal, both eyes and all related structures Alignment and Position: alignment normal Sclera: sclerae normal Pupils: Equal, round and reactive pupils present EOM: EOMs intact bilaterally Neck Neck: normal visual inspection, full ROM, no lymphadenopathy, supple and no JVD Thyroid: thyroid normal Lymphatic: no lymphadenopathy noted Resp Effort & Inspection: normal respiratory effort and able to speak in complete sentences Auscultation: clear to auscultation bilaterally, crackles bilateral at the base, no rales, no rhonchi, no wheezes and diminished lung sounds Cardio Jugular venous distension: no JVD Rate: regular rate Rhythm: regular rhythm Heart sounds: S1 normal heart sound present and S2 normal heart sound present GI Inspection: normal to inspection GI Palp: Yes Soft to palpation, No Tenderness to palpation present (GI), No Guarding due to palpation present (GI), Yes No hepatosplenomegaly present and No Rebound tenderness present General: Yes deferred Skin Rashes: no rashes Wounds: wounds noted (Scalp surgical wound) Neuro General: patient oriented x3 and CN's II-XI intact bilaterally Cranial nerves: Yes CN's II-XII intact bilaterally and Yes Equal, round and reactive pupils present Cognition (Neuro): normal cognition Speech: normal speech Gait exam (Neuro): Unable to assess gait Motor exam (neuro): 5/5 motor strength present throughout DS: Data Data Completed and Pending Labs on day of discharge: Labs from last 24 hours 01/14/21 01/14/21 01/13/21 08:39 08:39 20:16 WBC 22.4 H RBC 3.46 L Hgb 10.9 L Hct 31.8 L MCV 91.9 MCH 31.5 MCHC 34.3 RDW 14.6 H Plt Count 76 L MPV 9.0 Immature Gran % (Auto) Not Reportable Neut % (Auto) Not Reportable Lymph % (Auto) Not Reportable [place] % (Auto) Not Reportable Eos % (Auto) Not Reportable Baso % (Auto) Not Reportable Lymph # (Auto) Not Reportable [place] # (Auto) Not Reportable Eos # (Auto) N
[2021-01-14 15:39] LABS: EDCOVIDSCREEN Negative (Negative)
== END 2021-01-14 16:25 ==
LOC: ANHED 21:49 → ANH2MED 22:15
PROVIDERS: Physician Assistant; Admitting Provider Internal Medicine; Emergency Provider Emergency Medicine; PCP Family Medicine; Visit Provider Internal Medicine
DX: S01.00XA Unspecified open wound of scalp, initial encounter (principal); I10 Essential (primary) hypertension; C91.10 Chronic lymphocytic leukemia of B-cell type not having achieved remission; E03.9 Hypothyroidism, unspecified; E78.5 Hyperlipidemia, unspecified; Z85.820 Personal history of malignant melanoma of skin; Z20.822 Contact with and (suspected) exposure to COVID-19; Z79.899 Other long term (current) drug therapy; Z86.73 Personal history of transient ischemic attack (TIA), and cerebral infarction without residual deficits
CPT/HCPCS: 12001; 36415; 36430; 80053; 85025; 85610; 85730; 86850; 86900; 86901; 86920; 87426; 96360; 97161; 97165; 99285; A9270; C9803; G0378; J7050; P9016

== ENCOUNTER 2021-01-23 21:54 | Emergency (ER) | payer MEDICARE, SELFPAY ==
--- NOTE | ~2021-01-23 | XR_ITS ---
EXAMINATION: XR chest 1V portable DATE: 01/24/2021 03:09 INDICATION: Dyspnea. TECHNIQUE: A single frontal view of the chest was obtained. COMPARISON: Chest 2 views 12/21/2020, thoracic spine CT 01/23/2021, chest CT 12/21/2020 FINDINGS: Lung volumes are small. There are interstitial opacities in the mid and lower lung zones wi th a basilar predominance. No pleural effusion or pneumothorax. Cardiomegaly is noted. There is an ol d healed right rib fracture. Suture anchors overlie right shoulder. IMPRESSION: 1. Chronic interstitial lung disease, stable from 12/21/2020. 2. Cardiomegaly. Reviewed, dictated and finalized at location A. BI DEVELOPER
--- NOTE | ~2021-01-23 | CT_ITS ---
EXAMINATION: CT brain wo con, CT cervical spine wo con, CT thoracic spine wo con EXAM DATE: 01/23/2021 23:15 INDICATION: Fall, head injury. TECHNIQUE: Spiral CT of the head was performed without contrast. Axial, coronal and sagittal images were reviewed. Spiral CT of the cervical spine was performed without contrast. Axial images were rev iewed. Coronal and sagittal reformatted cervical spine images were reviewed. Axial, coronal and sagi ttal images of the thoracic spine were reviewed. The dose-length product (DLP) for this examination was 1210.67 mGy-cm. The exposure was tailored according to patient size, and iterative reconstructi on (ASIR) was used as additional dose reduction technique. Comparison is made to prior examination fr om 05/20/2017, correlation to a pulmonary CT from 12/21/2020. FINDINGS: HEAD CT: There is no acute intraparenchymal hemorrhage. No evidence of intraparenchymal brain mass l esion. No evidence of acute infarction. There is moderate periventricular and subcortical hypodensit y, nonspecific but probably related to small vessel ischemic disease. There is moderate to severe p rominence of the sulci and ventricles related to cerebral atrophy. There is no mass effect or midl ine shift. There is no obstructive hydrocephalus suspected. There are no extra-axial collections. T here are no acute calvarial fractures. The orbits are unremarkable. Diffuse frontal scalp hematoma along the entire frontal region to the vertex. The visualized sinuses and mastoid air cells are well aerated. CERVICAL CT: Limited due to severe kyphosis. The odontoid process is intact. The lateral masses of C 1 line up with C2. There is a fracture through the C1 right posterior arch which appears to have scl erotic margin consistent with chronic finding, although was not present on CT dated 05/20/2017. No acut e cervical fracture suspected. Advanced cervical spondylosis. THORACIC SPINE: Chronic T3 burst fracture unchanged compared to that exam. Interval development of mi ld compression fracture at T2, mild burst fracture at T4 which are likely acute, were not present on pulmonary CT last month (12/21/2020). There is a T7 mild to moderate burst fracture with some sclerosi s, was present on pulmonary but has developed sclerosis, consistent with subacute age. Chronic appear ing burst fractures T10, T11, T12, stable. No significant retropulsion to any of these fractures. Bas ilar fibrosis. IMPRESSION: 1. No acute intracranial findings. 2. Diffuse frontal scalp hematoma. 3. Acute mild T2 compression fracture, mild T4 burst fracture. 4. Subacute T7 mild to moderate burst fracture. 5. Chronic C1 posterior arch, T3, T10-12 fractures. Reviewed, dictated and finalized at location A. R ROLL CHANGER IMPRESSION: 1. No acute intracranial findings. 2. Diffuse frontal scalp hematoma. 3. Acute mild T2 compression fracture, mild T4 burst fracture. 4. Subacute T7 mild to moderate burst fracture. 5. Chronic C1 posterior arch, T3, T10-12 fractures. IMPRESSION: 1. No acute intracranial findings. 2. Diffuse frontal scalp hematoma. 3. Acute mild T2 compression fracture, mild T4 burst fracture. 4. Subacute T7 mild to moderate burst fracture. 5. Chronic C1 posterior arch, T3, T10-12 fractures.
[2021-01-23 21:59] VITALS: BP 114/68; PULSE 95; RESP 16; O2SAT 97
[2021-01-23 22:06] VITALS: TEMP 36.7
[2021-01-23] MEDS: HYDROmorphone HCL INJ (*CRX) 1 MG/ML SYR IV PUSH (22:25)
[2021-01-23] MEDS: ONDANSETRON INJ 4 MG/2 ML VIAL IV PUSH (22:25)
[2021-01-23 22:28] LABS: Hematocrit 34.4 % (42.0-52.0); Hemoglobin 11.7 g/dL (14.0-18.0); Mean Corpuscular Volume 91.2 fl (80-100); Mean Platelet Volume 8.2 fl (7.4-10.4); Platelet Count Result 104 k/mm3 (150-375); Red Blood Count 3.77 M/mm3 (4.6-6.20); Red Cell Distribution Width 15.4 % (11.5-14.5); White Blood Count 35.9 K/mm3 (4.5-10.0)
[2021-01-23] MEDS: SODIUM CHLORIDE 0.9% IV 1,000 ML 999 ML IV CONT (22:36)
--- NOTE | 2021-01-23 22:40 | PC.NURSE ---
Received Dilaudid for pain 12/23 as ordered, BP 82/53, SpO2 81%. Dr. Crawford notified, orders received. Oxygen placed and IV fluids started as ordered.
[2021-01-23 22:46] VITALS: BP 83/53; PULSE 55; RESP 11; O2SAT 94
[2021-01-23 22:48] LABS: Alanine Aminotransferase 16 U/L (4-50); Albumin Level 3.8 g/dL (3.5-5.1); Alkaline Phosphatase 73 U/L (38-126); Anion Gap 4 mmol/L (8-16); Aspartate Amino Transferase 30 U/L (17-59); Bilirubin,Total 0.9 mg/dL (0.2-1.3); Blood Urea Nitrogen 24 mg/dL (9-20); Calcium 8.8 mg/dL (8.4-10.2); Carbon Dioxide 26 mmol/L (22-30); Chloride 90 mmol/L (98-107); Estimated CRCL calculation 45 ml/min; Estimated Glomerular Filt Rate > 60; Glucose 122 mg/dL (65-110); Potassium 4.9 mmol/L (3.4-5.0); Sodium 120 mmol/L (137-145)
[2021-01-23 23:13] LABS: Band Neutrophils Percent 2 % (0-6); Monocytes Absolute Manual 0.35 K/mm3 (0.1-0.90); Monocytes Percent Manual 1 % (3-9)
[2021-01-23 23:15] LABS: Lymphocytes Absolute Manual 27.64 K/mm3 (1.1-4.5); Neutrophils Absolute Manual 7.89 K/mm3 (1.3-6.7); Neutrophils Percent Manual 20 % (46-73); Smudge Cells PRESENT; Total Cells Counted 100
[2021-01-23 23:16] LABS: Platelet Estimate Decreased (Adequate)
[2021-01-23 23:23] VITALS: BP 116/65; PULSE 70; RESP 18; O2SAT 97
[2021-01-23 23:24] VITALS: BP 116/65; PULSE 72; RESP 17; O2SAT 97
[2021-01-24] VITALS (13 sets, daily range): BP systolic 91–131; BP diastolic 40–90; PULSE 58–93; RESP 12–26; O2SAT 62–100
[2021-01-24] MEDS: ALBUTEROL SULFATE NEB 2.5 MG/0.5 ML INH 5 MG INHALATION ×2 (01:14→01:56)
[2021-01-24] MEDS: IPRATROPIUM BR 0.02% INH SOLN 0.5 MG/2.5 ML VIAL INHALATION ×2 (01:14→01:57)
--- NOTE | 2021-01-24 01:41 | ED.GENADULT ---
HPI - General Adult General Chief complaint: Fall Stated complaint: fall Time Seen by Provider: 01/23/21 22:05 History of Present Illness HPI narrative: Patient is a 80-year-old gentleman who presents to emergency department with chief complaint of neck pain and back pain. The patient reports that he was in his wheelchair leaned forward fell struck a dresser and then hit the floor with his head. Patient has history of squamous cell carcinoma of the scalp and has had previous problems with bleeding of his scalp in the past. Patient states that he has severe pain in his lower neck and his upper thoracic area between his shoulder blades. Patient does report that he has had history of chronic pain but states today it is worse than normal. Patient states recently seen by his primary care physician and told that he may have mild pneumonia and was started on antibiotics. Patient states that the pain in his back is worse with movement and improved with rest. Patient was offered cervical collar by EMS and the patient refused cervical collar at that time due to the pain. Patient reports is able to move all of his extremities at his baseline denies paresthesias or focal neurological deficit. Related Data Home Medications Medication Instructions Recorded Confirmed cholecalciferol (vitamin D3) 10 10 mcg PO DAILY 10/18/19 01/14/21 mcg (400 unit) capsule folic acid 1 mg PO DAILY 02/12/20 01/14/21 Saline Nasal Mist 1 spray INTRANASAL TID PRN 01/14/21 01/14/21 acetaminophen [Tylenol] 650 mg PO Q6H PRN 01/14/21 01/14/21 amlodipine 10 mg PO DAILY 01/14/21 01/14/21 bisacodyl [Dulcolax (bisacodyl)] 10 mg RECTAL DAILY PRN 01/14/21 01/14/21 fluticasone propionate 1 spray NASAL QSHIFT 01/14/21 01/14/21 losartan 100 mg PO DAILY 01/14/21 01/14/21 magnesium hydroxide [Milk of 30 ml PO BID PRN 01/14/21 01/14/21 Magnesia] metoprolol succinate 50 mg PO DAILY 01/14/21 01/14/21 olopatadine 1 drp EACH EYE QSHIFT 01/14/21 01/14/21 ondansetron 4 mg PO QSHIFT PRN 01/14/21 01/14/21 tramadol [Ultram] 25 mg PO Q6H PRN 01/14/21 01/14/21 vitamin B complex 1 cap PO DAILY 01/14/21 01/14/21 Allergies Allergy/AdvReac Type Severity Reaction Status Date / Time fentanyl Allergy Severe Unknown Verified 01/21/21 13:21 hydrocodone Allergy Severe Unknown Verified 01/21/21 13:21 oxycodone Allergy Severe Unknown Verified 01/21/21 13:21 nylon Allergy Other Verified 01/21/21 13:21 SILKSUTURES Allergy Severe REDNESS Uncoded 07/12/20 10:59 Review of Systems Review of Systems: A 10 system review of systems was completed on the patient and is negative except for what is stated in the HPI. Nursing and ancillary documentation was reviewed. 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
--- NOTE | 2021-01-24 02:00 | PC.NURSE ---
Rn called Son Ghanshyam Guillermo and left a message for him to call. RN spoke with Ghanshyam with permission of pt.
--- NOTE | 2021-01-24 02:19 | ECG_ITS ---
Measurements Intervals [place] Rate: 66 P: 31 [place]: 228 QRS: -15 QRSD: 105 T: 30 QT: 414 QTc: 435 Interpretive Statements SINUS RHYTHM WITH FIRST DEGREE AV BLOCK VENTRICULAR PREMATURE COMPLEXES LEFT ATRIAL ENLARGEMENT BORDERLINE R WAVE PROGRESSION, ANTERIOR LEADS BASELINE ARTIFACT- V3-V6 ABNORMAL ECG Electronically Signed On 01-28-2021 12:48:19 AUTOMATED CUTTING MACHINE OPERATOR by Geovani Tipton D.O.
--- NOTE | 2021-01-24 02:32 | PC.NURSE ---
Rn gave report to Olivia MCGINNIS at [facility].
== END 2021-01-24 03:21 | disposition short-term general hospital (02) ==
PROVIDERS: Emergency Provider Emergency Medicine; PCP Family Medicine
DX: J96.90 Respiratory failure, unspecified, unspecified whether with hypoxia or hypercapnia (principal); S22.030A Wedge compression fracture of third thoracic vertebra, initial encounter for closed fracture; S22.020A Wedge compression fracture of second thoracic vertebra, initial encounter for closed fracture; S22.041A Stable burst fracture of fourth thoracic vertebra, initial encounter for closed fracture; S22.061A Stable burst fracture of T7-T8 vertebra, initial encounter for closed fracture; S12.001A Unspecified nondisplaced fracture of first cervical vertebra, initial encounter for closed fracture; W05.0XXA Fall from non-moving wheelchair, initial encounter; C91.10 Chronic lymphocytic leukemia of B-cell type not having achieved remission; I12.9 Hypertensive chronic kidney disease with stage 1 through stage 4 chronic kidney disease, or unspecified chronic kidney disease; N18.30 Chronic kidney disease, stage 3 unspecified; K21.9 Gastro-esophageal reflux disease without esophagitis; M19.90 Unspecified osteoarthritis, unspecified site
CPT/HCPCS: 36415; 70450; 71045; 72125; 72128; 80053; 85025; 93005; 94002; 94640; 96361; 96374; 96375; 99291; J1170; J2405; J7030